=== PATIENT | male | born 1960 | race African-American/Black ===

== ENCOUNTER 2017-05-21 19:08 | Inpatient (IN) | payer MEDICARE, OTHER ==
--- NOTE | 2017-05-21 19:41 | ED Physician Chart ---
ED Chief Complaint/HPI - Patient Information Date Seen:: 05/21/17 Time Seen:: 19:30 Chief Complaint:: generalized weakness History of Present Illness:: Patient's had a recent increase in generalized weakness and a decrease in his abilities to perform activities of daily living. Patient denies chest pain and shortness of breath. Historian:: Patient Review:: Nurse's Note Reviewed ED Review of Systems - Review of Systems General/Constitutional: Weakness Skin: No skin lesions Head: No headache Eyes: No loss of vision ENT: No earache Neck: No neck pain Cardio Vascular: No chest pain Pulmonary: No SOB GI: No nausea, No vomiting G/U: No dysuria, No hematuria Musculoskeletal: No bone or joint pain Endocrine: No polyuria, No polydipsia Psychiatric: Prior psych history Hematopoietic: No bruising, No lymphadenopathy Allergic/Immuno: No urticaria, No angioedema Neurological: No syncope ED Past Medical History - Past Medical History Past Medical History: DM, Other (history of hypoglycemia; anxiety; schizophrenia ; psychosis) Family History: None Social History: Smoker, No Alcohol, Other (quit drinking alcohol in 1976; smokes about 6-7 cigarettes a day) Surgical History: other (cyst left side of neck) Psychiatricy History: Schizophrenia, Other (psychosis) Medication: Reviewed ED Physical Exam - Physical Examination General/Constitutional: Well-developed, well-nourished, Alert, No distress Other Gen/Cons comments:: Patient knows the correct year but not the correct month Head: Atraumatic Eyes: Lids, conjuctiva normal Skin: Nl inspection ENMT: External ears, nose nl Other ENMT comments:: Edentulous Neck: No nuchal rigidity Respiratory: Nl effort/Exclusion Cardio Vascular: RRR, No murmur, gallop, rubs GI: No tenderness/rebounding/guarding, No organomegaly : No CVA tenderness Extremities: No tenderness or effusion Misc: No paraspinal tenderness ED Labs/Radiology/EKG Results - Lab Results Results: Laboratory Results - last 24 hr 05/21/17 20:48 Urine Source RANDOM Urine Color YELLOW Urine Clarity HAZY Urine pH 7.0 Ur Specific [place] 1.010 Urine Protein NEGATIVE Urine Glucose (UA) NEGATIVE Urine Ketones NEGATIVE Urine Blood TRACE Urine Nitrate POSITIVE H Urine Bilirubin NEGATIVE Urine Urobilinogen 0.2 Ur Leukocyte Esterase NEGATIVE Urine RBC 0-2 H Urine WBC 0-2 Ur Epithelial Cells OCCASIONAL Urine Bacteria MANY - EKG Interpretations Rate & Rhythm: NSR rate [address] [place]: normal Comments:: ST segment elevation suggestive of early repolarization not pericarditis ED Septic Shock - . Is Septic Shock (SBP<90, OR Lactate>4 mmol\L) present?: No ED Reassessment (Disposition) - Reassessment Reassessment Condition:: Unchanged - Diagnosis Diagnosis:: generalized weakness; diabetes; anxiety; schizophrenia - Aftercare/Follow up Instructions Aftercare/Follow-Up Instructions:: Refer to Discharge Instructions - Patient Disposition Admitted to:: Med/Surg Admitting Medical Physician:: Suhail Partida Admitting Psych Physician:: Suhail Partida Condition at Disposition:: Stable, Unchanged
[2017-05-21 20:56] LABS: URINE BILIRUBIN NEGATIVE (NEGATIVE); URINE BLOOD TRACE (NEGATIVE); URINE GLUCOSE (UA) NEGATIVE (NEGATIVE); URINE KETONE NEGATIVE (NEGATIVE); URINE PROTEIN NEGATIVE (NEGATIVE); URINE UROBILINOGEN 0.2 E.U./dL (0.2 - 1.0)
[2017-05-21 20:59] LABS: URINE COLOR YELLOW
[2017-05-21 21:00] LABS: URINE BACTERIA MANY /hpf (NONE SEEN); URINE EPITHELIAL CELLS OCCASIONAL /lpf (FEW); URINE RBC 0-2 /hpf (0-5); URINE WBC 0-2 /hpf (0-5)
[2017-05-21] MEDS ORDERED: guaiFENesin 200 MG/10 ML UDC PO PRN (21:36)
[2017-05-21] MEDS ORDERED: Albuterol Nebulizer 2.5mg/3mL HHN PRN (21:36)
[2017-05-21] MEDS ORDERED: Ipratropium Neb 0.5 mg/2.5 mL UD IH PRN (21:36)
[2017-05-21] MEDS ORDERED: HALOPERIDOL DECANOATE 50 MG IM SCH (21:45)
[2017-05-21] MEDS ORDERED: D5-0.9%NS 1,000 ML IV SCH (21:45)
[2017-05-21 22:11] LABS: % BASOPHILS 0.4 % (0.0-2.0); % EOSINOPHILS 4.1 % (0.0-5.0); % LYMPHOCYTES 27.6 % (20.0-50.0); % MONOCYTES 7.9 % (2.0-10.0); HEMATOCRIT 37.9 % (41.0-60); HEMOGLOBIN 12.4 gm/dL (12-16); MEAN CELL VOLUME 88.1 fl (80-99); MEAN CORPUSCULAR HEMOGLOBIN 28.9 pg (26.0-30.0); MEAN CORPUSCULAR HGB CONC 32.8 pg (28.0-36.0); MEAN PLATELET VOLUME 7.9 fl; NEUTROPHILE ABSOLUTE 2.9 Th/cmm (1.8-8.0); PLATELET COUNT 172 Th/cmm (150-400); RED CELL DISTRIBUTION WIDTH 12.8 % (11.5-20.0); WHITE BLOOD COUNT 4.8 Th/cmm (4.8-10.8)
[2017-05-21 22:21] LABS: ALB/GLOB RATIO 1.6 (1.0-1.8); ALKALINE PHOSPHATASE 36 U/L (34-104); ANION GAP 8.3 (7.0-16.0); BILIRUBIN,TOTAL 0.5 mg/dL (0.3-1.0); BUN - UREA NITROGEN 14 mg/dL (7-25); BUN/CREATININE RATIO 17.5; CALCIUM SERUM 9.3 mg/dL (8.6-10.3); CARBON DIOXIDE 26.5 mEq/L (21.0-31.0); CHLORIDE 101 mEq/L (98-107); CREATININE - SERUM 0.8 mg/dL (0.7-1.3); GLUCOSE 105 mg/dL (70-105); POTASSIUM SERUM 3.8 mEq/L (3.5-5.1); SGOT 19 U/L (13-39); SGPT/ALT 11 U/L (7-52); SODIUM SERUM 132 mEq/L (136-145)
[2017-05-22 01:31] VITALS: BP 118/90
--- NOTE | 2017-05-22 07:09 | Diagnostic Imaging Report ---
Portable chest x-ray History: Pain Allowing for portable technique the heart size is normal. No focal pulmonary parenchymal processes. No hilar or mediastinal abnormalities. Impression: No acute abnormalities.
[2017-05-22] MEDS ORDERED: INSULIN ASPART, RECOMBINANT 100 UNITS/ML SUBQ SCH (07:30)
--- NOTE | 2017-05-22 16:26 | History & Physical ---
ADMIT DATE: 05/22/2017 CHIEF COMPLAINT: Generalized weakness. HISTORY OF PRESENT ILLNESS: This is a 56-year-old male who was seen in the ER for increase in generalized weakness and decreasing ability to perform activities. The patient is homeless. This patient is now admitted to the Geropsych Unit. PAST MEDICAL HISTORY: Diabetes, anxiety, schizophrenia, psychosis. FAMILY HISTORY: Noncontributory. SOCIAL HISTORY: The patient is a current smoker, smokes 6-7 cigarettes per day. Denies any illicit drug usage. The patient is homeless. PAST SURGICAL HISTORY: I and D on the left side of the neck. REVIEW OF SYSTEMS: GENERAL: Denies any fevers, any chills complaints of weakness. SKIN: Denies any unusual skin lesions. NEUROLOGICAL: Denies any headache. NECK: No neck pain. CARDIOVASCULAR: Denies chest pain. RESPIRATORY: Denies any shortness of breath. GASTROINTESTINAL: Denies nausea, vomiting, abdominal pain. GENITOURINARY: Denies dysuria. All other systems are reviewed by me and are negative. PHYSICAL EXAMINATION: GENERAL: The patient is well developed, well nourished, no acute distress. VITAL SIGNS: Blood pressure is only available 90/54. HEENT: Normocephalic, atraumatic. NECK: Supple. No mass. LUNGS: Clear bilaterally. HEART: Regular rate and rhythm. ABDOMEN: Soft and nontender. LABORATORY DATA: WBC 4.8, H and H 12.4 and 37.9, and platelet of 172. Sodium 132, potassium 3.8, chloride 101, BUN 14, creatinine 0.8. Ammonia 78, albumin 4.1. ASSESSMENT: Diabetes, generalized weakness, anxiety, schizophrenia. PLAN: The patient will be admitted to the Geropsych Unit. We will monitor the patient's glucose level. We will put a sliding scale and will continue to follow this patient. JOB# [id number]
== END 2017-05-22 10:00 | DRG 948 ==
LOC: ER 19:08 → MSI 21:40
PROVIDERS: ADMIT Internal Medicine; ATTEND Internal Medicine
DX: R53.1 Weakness (principal); F20.9 Schizophrenia, unspecified; E11.9 Type 2 diabetes mellitus without complications; F41.9 Anxiety disorder, unspecified; F29 Unspecified psychosis not due to a substance or known physiological condition; F17.210 Nicotine dependence, cigarettes, uncomplicated; Z59.0 Homelessness
CPT/HCPCS: 36415-UA; 71010-TC; 80053-TC; 81001-TC; 82140-TC; 82948-90; 83036-90; 84443-TC; 85025-TC; 93005; J1815

== ENCOUNTER 2017-05-22 10:02 | Inpatient (IN) | payer MEDICARE, OTHER ==
[2017-05-22 12:08] VITALS: BP 90/54
[2017-05-22] MEDS ORDERED: Magnesium Hydroxide (MOM) 30 mL UDC PO PRN (12:33)
[2017-05-22] MEDS ORDERED: Maalox 30 mL Cup PO PRN ×2 (12:33→12:38)
--- NOTE | 2017-05-22 12:38 | Internal Medicine Prog Note ---
Internal Medicine Subjective - Subjective Service Date: 05/22/17 ([id number]) Internal Medicine Objective - Physical Exam Vitals and I&O: Vital Signs Temp Pulse Resp BP 90/54 05/22/17 12:07 Pulse Ox Intake & Output 05/21/17 05/22/17 05/22/17 18:59 06:59 18:59 Weight (lbs) 123 lb 12.8 oz Active Medications: Current Medications Diphenhydramine HCl (Benadryl 50 Mg/Ml) 25 mg IM NOW ONE Stop: 05/22/17 12:11 Lorazepam (Ativan) 1 mg PO Q6HR PRN; Protocol PRN Reason: Anxiety Stop: 07/21/17 12:35 Miscellaneous (Haloperidol Decanoate [Haldol Decanoate 50]) 50 mg IM [id number] SARA Stop: 07/21/17 12:44 Olanzapine (Zyprexa) 5 mg IM X1 ONE PRN Reason: Protocol Stop: 05/22/17 12:09 Internal Medicine Assmt/Plan - Assessment Assessment: DM-2 GENERALIZED WEAKNESS ANXIETY SCHIZOPHRENIA NICOTINE ABUSE
[2017-05-22] MEDS ORDERED: HALOPERIDOL DECANOATE 50 MG IM SCH (12:45)
[2017-05-22] MEDS: INSULIN ASPART SLIDING SCALE 100 UNITS/ML UNIT SUBQ SCH ×2 (15:45→21:00)
[2017-05-23] MEDS: INSULIN ASPART SLIDING SCALE 100 UNITS/ML UNIT SUBQ SCH ×4 (06:44→20:22)
[2017-05-23] MEDS: Multivitamin Tab PO SCH (10:00)
--- NOTE | 2017-05-23 11:37 | Internal Medicine Prog Note ---
Internal Medicine Subjective - Subjective Service Date: 05/23/17 Patient seen and examined:: with staff Patient is:: awake Per staff patient has:: no adverse event Internal Medicine Objective - Results Recent Labs: Laboratory Last Values POC Glucose 65 MG/DL (70 - 105) L 05/23/17 06:28 - Physical Exam Vitals and I&O: Vital Signs Temp 97.5 F 05/23/17 06:49 Pulse 63 05/23/17 06:49 Resp 19 05/23/17 06:49 BP 115/65 05/23/17 06:49 Pulse Ox 98 05/23/17 06:49 Intake & Output 05/22/17 05/23/17 05/23/17 18:59 06:59 18:59 Intake Total 120 Balance 120 Intake: Oral 120 Other: # Voids 3 Active Medications: Current Medications Acetaminophen (Tylenol) 650 mg PO Q4HR PRN PRN Reason: Pain Or Fever above 101 Stop: 07/21/17 12:37 Al Hydrox/Mg Hydrox/Simethicone (Maalox) 30 ml PO Q6HR PRN PRN Reason: Dyspepsia Stop: 07/21/17 12:37 Haloperidol Decanoate (Haldol Dec) 50 mg IM Q30D SARA Stop: 07/22/17 09:59 Last Admin: 05/23/17 10:00 Dose: 50 mg Insulin Aspart (Novolog Insulin Sliding Scale) 0 units SUBQ ACHS SARA PRN Reason: Protocol Stop: 07/21/17 16:29 Last Admin: 05/23/17 06:44 Dose: Not Given Levofloxacin (Levaquin) 500 mg PO DAILY SARA Stop: 05/28/17 09:01 Last Admin: 05/23/17 09:59 Dose: 500 mg Lorazepam (Ativan) 1 mg PO Q6HR PRN; Protocol PRN Reason: Anxiety Stop: 07/21/17 12:35 Lorazepam (Ativan) 0.5 mg PO Q4HR PRN; Protocol PRN Reason: Agitation Stop: 06/21/17 12:40 Magnesium Hydroxide (Milk Of Magnesia) 30 ml PO HS PRN PRN Reason: Constipation Multivitamins/Vitamin C (Theragran) 1 tab PO DAILY SARA Stop: 07/22/17 08:59 Last Admin: 05/23/17 10:00 Dose: 1 tab Zolpidem Tartrate (Ambien) 5 mg PO HS PRN PRN Reason: Insomnia Stop: 07/21/17 12:40 General: alert HEENT: NC/AT, PERRLA Neck: Supple Lungs: CTAB Cardiovascular: RRR, Normal S1, without murmur Extremities: clear Internal Medicine Assmt/Plan - Assessment Assessment: DM-2 GENERALIZED WEAKNESS ANXIETY SCHIZOPHRENIA NICOTINE ABUSE - Plan Plan: monitor glucose fall precautions continue current plan of care
[2017-05-24] MEDS: INSULIN ASPART SLIDING SCALE 100 UNITS/ML UNIT SUBQ SCH ×4 (06:35→21:49)
[2017-05-24] MEDS: Multivitamin Tab PO SCH (08:29)
--- NOTE | 2017-05-24 17:18 | Internal Medicine Prog Note ---
Internal Medicine Subjective - Subjective Service Date: 05/24/17 Patient is:: awake Per staff patient has:: no adverse event Internal Medicine Objective - Results Recent Labs: Laboratory Last Values POC Glucose 92 MG/DL (70 - 105) 05/24/17 16:15 - Physical Exam Vitals and I&O: Vital Signs Temp 98.1 F 05/24/17 16:37 Pulse 54 05/24/17 16:37 Resp 20 05/24/17 16:37 BP 117/75 05/24/17 16:37 Pulse Ox 97 05/24/17 16:37 Intake & Output 05/23/17 05/24/17 05/24/17 18:59 06:59 18:59 Intake Total 1000 Balance 1000 Intake: Oral 1000 Other: # Voids 4 # Bowel Movements 1 Active Medications: Current Medications Acetaminophen (Tylenol) 650 mg PO Q4HR PRN PRN Reason: Pain Or Fever above 101 Stop: 07/21/17 12:37 Al Hydrox/Mg Hydrox/Simethicone (Maalox) 30 ml PO Q6HR PRN PRN Reason: Dyspepsia Stop: 07/21/17 12:37 Benztropine Mesylate (Cogentin) 0.5 mg PO BID SARA Stop: 07/23/17 16:59 Last Admin: 05/24/17 16:42 Dose: 0.5 mg Haloperidol Decanoate (Haldol Dec) 50 mg IM Q30D [facility] Stop: 07/22/17 09:59 Last Admin: 05/23/17 10:00 Dose: 50 mg Insulin Aspart (Novolog Insulin Sliding Scale) 0 units SUBQ ACHS SARA PRN Reason: Protocol Stop: 07/21/17 16:29 Last Admin: 05/24/17 16:42 Dose: Not Given Levofloxacin (Levaquin) 500 mg PO DAILY SARA Stop: 05/28/17 09:01 Last Admin: 05/24/17 08:29 Dose: 500 mg Lorazepam (Ativan) 1 mg PO Q6HR PRN; Protocol PRN Reason: Anxiety Stop: 07/21/17 12:35 Lorazepam (Ativan) 0.5 mg PO Q4HR PRN; Protocol PRN Reason: Agitation Stop: 06/21/17 12:40 Magnesium Hydroxide (Milk Of Magnesia) 30 ml PO HS PRN PRN Reason: Constipation Multivitamins/Vitamin C (Theragran) 1 tab PO DAILY SARA Stop: 07/22/17 08:59 Last Admin: 05/24/17 08:29 Dose: 1 tab Zolpidem Tartrate (Ambien) 5 mg PO HS PRN PRN Reason: Insomnia Stop: 07/21/17 12:40 General: alert HEENT: NC/AT, PERRLA Neck: Supple Lungs: CTAB Cardiovascular: RRR, Normal S1, without murmur Extremities: clear Internal Medicine Assmt/Plan - Assessment Assessment: DM-2 GENERALIZED WEAKNESS ANXIETY SCHIZOPHRENIA NICOTINE ABUSE - Plan Plan: monitor glucose fall precautions continue current plan of care
--- NOTE | 2017-05-25 02:44 | Psychosocial Evaluation ---
DATE OF SERVICE: 05/23/2017 IDENTIFYING DATA: The patient is a 56-year-old -Luxembourger male, currently homeless. Information obtained by directly interviewing the patient as well as reviewing the admission papers and they are reliable. JUSTIFICATION OF HOSPITALIZATION: The patient is admitted here after he was transferred from [facility]. The patient has been reported to have been getting easily agitated and has not been able to care for self. The patient during the time of the hospitalization has been screaming and yelling and could not making much sense. The patient has to be given a dose of Haldol to contain. I tried to get some information from the patient, but the patient is not able to provide much of information and has been getting easily frustrated. PAST PSYCHIATRIC HISTORY: Details are not known. MEDICAL HISTORY AND PHYSICAL EXAMINATION: Requested to be done by Dr. Partida. SUBSTANCE ABUSE HISTORY: None. PHYSICAL OR SEXUAL ABUSE HISTORY: None. LEGAL PROBLEMS: None at this time. STRENGTH AND ASSETS: The patient seems to be motivated. MENTAL STATUS EXAMINATION: The patient is a 56-year-old, superficially cooperative. Eye contact is poor. Affect is constricted. Coping skills are noted to be poor. The patient has been screaming and yelling and has been throwing himself onto the floor. The patient has been very disruptive and has to be given a dose of Haldol. Attention span and concentration are noted to be poor at this time. The patient has no insight into his illness. The patient is not able to contract for safety. DIAGNOSTIC IMPRESSION: The patient's attention span and concentration are noted to be poor at this time. The patient appears to have ____ intelligence. DIAGNOSES AT THE TIME OF ADMISSION: AXIS I: Schizophrenia, chronic paranoid type with acute exacerbation. AXIS II: None. AXIS III: As per Dr. Partida. IMMEDIATE TREATMENT PLAN: The patient is going to be observed on the inpatient unit, provided with supportive psychotherapy. The patient is going to be closely monitored. Once stabilized, the patient is going to be [facility] to be followed up on an outpatient basis. JOB# [id number]
[2017-05-25] MEDS: INSULIN ASPART SLIDING SCALE 100 UNITS/ML UNIT SUBQ SCH ×4 (06:32→20:41)
[2017-05-25] MEDS: Multivitamin Tab PO SCH (10:09)
[2017-05-25] MEDS ORDERED: Probiotic Screen MC PRN (14:59)
[2017-05-25] MEDS: Lactobacillus Rhamnosus 10 Billion CFU Capsule PO SCH (17:18)
--- NOTE | 2017-05-25 19:35 | Internal Medicine Prog Note ---
Internal Medicine Subjective - Subjective Service Date: 05/25/17 Patient is:: awake Per staff patient has:: no adverse event Internal Medicine Objective - Results Recent Labs: Laboratory Last Values POC Glucose 97 MG/DL (70 - 105) 05/25/17 16:17 - Physical Exam Vitals and I&O: Vital Signs Temp 98.1 F 05/25/17 15:29 Pulse 79 05/25/17 15:29 Resp 18 05/25/17 15:29 BP 115/68 05/25/17 15:29 Pulse Ox 96 05/25/17 15:29 Intake & Output 05/25/17 05/25/17 05/26/17 06:59 18:59 06:59 Intake Total 660 1800 Balance 660 1800 Intake: Oral 660 1800 Other: # Voids 3 4 # Bowel Movements 0 1 Active Medications: Current Medications Acetaminophen (Tylenol) 650 mg PO Q4HR PRN PRN Reason: Pain Or Fever above 101 Stop: 07/21/17 12:37 Al Hydrox/Mg Hydrox/Simethicone (Maalox) 30 ml PO Q6HR PRN PRN Reason: Dyspepsia Stop: 07/21/17 12:37 Benztropine Mesylate (Cogentin) 0.5 mg PO BID [facility] Stop: 07/23/17 16:59 Last Admin: 05/25/17 17:20 Dose: 0.5 mg Haloperidol Decanoate (Haldol Dec) 50 mg IM Q30D [facility] Stop: 07/22/17 09:59 Last Admin: 05/23/17 10:00 Dose: 50 mg Insulin Aspart (Novolog Insulin Sliding Scale) 0 units SUBQ ACHS SARA PRN Reason: Protocol Stop: 07/21/17 16:29 Last Admin: 05/25/17 17:20 Dose: Not Given Lactobacillus Rhamnosus (Culturelle) 1 each PO DAILY [facility] Stop: 07/24/17 15:59 Last Admin: 05/25/17 17:18 Dose: 1 each Levofloxacin (Levaquin) 500 mg PO DAILY [facility] Stop: 05/28/17 09:01 Last Admin: 05/25/17 10:07 Dose: 500 mg Lorazepam (Ativan) 1 mg PO Q6HR PRN; Protocol PRN Reason: Anxiety Stop: 07/21/17 12:35 Last Admin: 05/25/17 10:09 Dose: 1 mg Lorazepam (Ativan) 0.5 mg PO Q4HR PRN; Protocol PRN Reason: Agitation Stop: 06/21/17 12:40 Magnesium Hydroxide (Milk Of Magnesia) 30 ml PO HS PRN PRN Reason: Constipation Miscellaneous (Probiotic Screen) 1 ea [facility] PRN PRN PRN Reason: PROTOCOL Stop: 07/24/17 14:58 Multivitamins/Vitamin C (Theragran) 1 tab PO DAILY SARA Stop: 07/22/17 08:59 Last Admin: 05/25/17 10:09 Dose: Not Given Zolpidem Tartrate (Ambien) 5 mg PO HS PRN PRN Reason: Insomnia Stop: 07/21/17 12:40 General: alert HEENT: NC/AT, PERRLA Neck: Supple Lungs: CTAB Cardiovascular: RRR, Normal S1, without murmur Extremities: clear Internal Medicine Assmt/Plan - Assessment Assessment: DM-2 GENERALIZED WEAKNESS ANXIETY SCHIZOPHRENIA NICOTINE ABUSE - Plan Plan: monitor glucose fall precautions continue current plan of care
--- NOTE | 2017-05-26 05:32 | Progress Notes ---
DATE: 05/24/2017 PSYCHIATRIC PROGRESS NOTE SUBJECTIVE: Staff was spoken to. The patient is interviewed. Mood is noted to be irritable. Affect is constricted. The patient has paranoid delusions. The patient has been on Haldol and has been presenting with drooling of saliva, and hence it is decided to add Cogentin 0.5 mg twice a day and follow the patient. ASSESSMENT: The patient is still paranoid and impulsive. PLAN: To continue the patient with the supportive therapy. I encouraged the patient to verbalize the concerns rather than to act out. JOB# [id number]
[2017-05-26] MEDS: INSULIN ASPART SLIDING SCALE 100 UNITS/ML UNIT SUBQ SCH ×2 (06:55→21:50)
[2017-05-26] MEDS: Lactobacillus Rhamnosus 10 Billion CFU Capsule PO SCH (09:31)
[2017-05-26] MEDS: Multivitamin Tab PO SCH (09:32)
--- NOTE | 2017-05-26 13:05 | Internal Medicine Prog Note ---
Internal Medicine Subjective - Subjective Service Date: 05/26/17 Patient is:: awake Per staff patient has:: no adverse event Internal Medicine Objective - Results Recent Labs: Laboratory Last Values POC Glucose 76 MG/DL (70 - 105) 05/26/17 05:56 - Physical Exam Vitals and I&O: Vital Signs Temp 97.6 F 05/26/17 06:55 Pulse 59 05/26/17 06:55 Resp 19 05/26/17 06:55 BP 98/59 05/26/17 06:55 Pulse Ox 98 05/26/17 06:55 Intake & Output 05/25/17 05/26/17 05/26/17 18:59 06:59 18:59 Intake Total 1800 240 Balance 1800 240 Intake: Oral 1800 240 Other: # Voids 4 3 # Bowel Movements 1 0 Active Medications: Current Medications Acetaminophen (Tylenol) 650 mg PO Q4HR PRN PRN Reason: Pain Or Fever above 101 Stop: 07/21/17 12:37 Al Hydrox/Mg Hydrox/Simethicone (Maalox) 30 ml PO Q6HR PRN PRN Reason: Dyspepsia Stop: 07/21/17 12:37 Benztropine Mesylate (Cogentin) 0.5 mg PO BID [facility] Stop: 07/23/17 16:59 Last Admin: 05/26/17 09:31 Dose: 0.5 mg Haloperidol Decanoate (Haldol Dec) 50 mg IM Q30D [facility] Stop: 07/22/17 09:59 Last Admin: 05/23/17 10:00 Dose: 50 mg Insulin Aspart (Novolog Insulin Sliding Scale) 0 units SUBQ ACHS SARA PRN Reason: Protocol Stop: 07/21/17 16:29 Last Admin: 05/26/17 06:55 Dose: Not Given Lactobacillus Rhamnosus (Culturelle) 1 each PO DAILY [facility] Stop: 07/24/17 15:59 Last Admin: 05/26/17 09:31 Dose: 1 each Levofloxacin (Levaquin) 500 mg PO DAILY [facility] Stop: 05/28/17 09:01 Last Admin: 05/26/17 09:30 Dose: 500 mg Lorazepam (Ativan) 1 mg PO Q6HR PRN; Protocol PRN Reason: Anxiety Stop: 07/21/17 12:35 Last Admin: 05/26/17 09:31 Dose: 1 mg Lorazepam (Ativan) 0.5 mg PO Q4HR PRN; Protocol PRN Reason: Agitation Stop: 06/21/17 12:40 Magnesium Hydroxide (Milk Of Magnesia) 30 ml PO HS PRN PRN Reason: Constipation Miscellaneous (Probiotic Screen) 1 ea [facility] PRN PRN PRN Reason: PROTOCOL Stop: 07/24/17 14:58 Multivitamins/Vitamin C (Theragran) 1 tab PO DAILY SARA Stop: 07/22/17 08:59 Last Admin: 05/26/17 09:32 Dose: Not Given Zolpidem Tartrate (Ambien) 5 mg PO HS PRN PRN Reason: Insomnia Stop: 07/21/17 12:40 General: alert HEENT: NC/AT, PERRLA Neck: Supple Lungs: CTAB Cardiovascular: RRR, Normal S1, without murmur Extremities: clear Internal Medicine Assmt/Plan - Assessment Assessment: DM-2 GENERALIZED WEAKNESS ANXIETY SCHIZOPHRENIA NICOTINE ABUSE - Plan Plan: monitor glucose fall precautions continue current plan of care
--- NOTE | 2017-05-26 20:38 | Progress Notes ---
DATE: 05/25/2017 SUBJECTIVE: Staff was spoken to. The patient is interviewed. Mood is noted to be irritable. Affect was continued. Continues to be paranoid. The patient is currently on Haldol and the patient has been able to tolerate the medications. No side effects to the medications are noted at this time. The patient's insight and judgment are noted to be impaired. The drooling has stopped once we restarted with the Cogentin. ASSESSMENT: The patient is still psychotic. PLAN: To continue the patient with supportive therapy and encouraged the patient to verbalize the concerns rather than to act out. JOB# [id number]
--- NOTE | 2017-05-27 04:37 | Progress Notes ---
DATE: 05/26/2017 SUBJECTIVE: Staff was spoken to. The patient is interviewed. Mood is noted to be irritable. Affect is constricted. The patient is getting easily irritable and stating that he needs his freedom and he cannot be in here. The patient has no place to return to. Coping skills at this time are noted to be very poor. Sleep and appetite are also noted to be very poor. ASSESSMENT: The patient is still grossly psychotic. PLAN: To continue the patient with the supportive therapy. I encouraged the patient to verbalize the concerns rather than to act out. The patient is not presenting with any side effects today. JOB# [id number]
[2017-05-27] MEDS: INSULIN ASPART SLIDING SCALE 100 UNITS/ML UNIT SUBQ SCH ×4 (07:01→20:46)
[2017-05-27] MEDS: Lactobacillus Rhamnosus 10 Billion CFU Capsule PO SCH (09:07)
[2017-05-27] MEDS: Multivitamin Tab PO SCH (09:08)
--- NOTE | 2017-05-27 14:13 | Internal Medicine Prog Note ---
Internal Medicine Subjective - Subjective Service Date: 05/27/17 Patient is:: awake Per staff patient has:: no adverse event Internal Medicine Objective - Results Recent Labs: Laboratory Last Values POC Glucose 73 MG/DL (70 - 105) 05/27/17 12:00 - Physical Exam Vitals and I&O: Vital Signs Temp 97.8 F 05/27/17 05:56 Pulse 48 05/27/17 05:56 Resp 20 05/27/17 05:56 BP 115/71 05/27/17 05:56 Pulse Ox 100 05/27/17 05:56 Intake & Output 05/26/17 05/27/17 05/27/17 18:59 06:59 18:59 Intake Total 1800 300 Balance 1800 300 Intake: Oral 1800 300 Other: # Voids 5 2 # Bowel Movements 1 0 Active Medications: Current Medications Acetaminophen (Tylenol) 650 mg PO Q4HR PRN PRN Reason: Pain Or Fever above 101 Stop: 07/21/17 12:37 Al Hydrox/Mg Hydrox/Simethicone (Maalox) 30 ml PO Q6HR PRN PRN Reason: Dyspepsia Stop: 07/21/17 12:37 Benztropine Mesylate (Cogentin) 0.5 mg PO BID [facility] Stop: 07/23/17 16:59 Last Admin: 05/27/17 09:07 Dose: 0.5 mg Haloperidol Decanoate (Haldol Dec) 50 mg IM Q30D [facility] Stop: 07/22/17 09:59 Last Admin: 05/23/17 10:00 Dose: 50 mg Insulin Aspart (Novolog Insulin Sliding Scale) 0 units SUBQ ACHS SARA PRN Reason: Protocol Stop: 07/21/17 16:29 Last Admin: 05/27/17 12:04 Dose: Not Given Lactobacillus Rhamnosus (Culturelle) 1 each PO DAILY [facility] Stop: 07/24/17 15:59 Last Admin: 05/27/17 09:07 Dose: 1 each Levofloxacin (Levaquin) 500 mg PO DAILY [facility] Stop: 05/28/17 09:01 Last Admin: 05/27/17 09:07 Dose: 500 mg Lorazepam (Ativan) 1 mg PO Q6HR PRN; Protocol PRN Reason: Anxiety Stop: 07/21/17 12:35 Last Admin: 05/26/17 09:31 Dose: 1 mg Lorazepam (Ativan) 0.5 mg PO Q4HR PRN; Protocol PRN Reason: Agitation Stop: 06/21/17 12:40 Magnesium Hydroxide (Milk Of Magnesia) 30 ml PO HS PRN PRN Reason: Constipation Miscellaneous (Probiotic Screen) 1 ea MC PRN PRN PRN Reason: PROTOCOL Stop: 07/24/17 14:58 Multivitamins/Vitamin C (Theragran) 1 tab PO DAILY SARA Stop: 07/22/17 08:59 Last Admin: 05/27/17 09:08 Dose: 1 tab Zolpidem Tartrate (Ambien) 5 mg PO HS PRN PRN Reason: Insomnia Stop: 07/21/17 12:40 General: alert HEENT: NC/AT, PERRLA Neck: Supple Lungs: CTAB Cardiovascular: RRR, Normal S1, without murmur Extremities: clear Internal Medicine Assmt/Plan - Assessment Assessment: DM-2 GENERALIZED WEAKNESS ANXIETY SCHIZOPHRENIA NICOTINE ABUSE - Plan Plan: monitor glucose fall precautions continue current plan of care Nutritional Asmnt/Malnutr-PDOC - Dietary Evaluation Malnutrition Findings (Please click <Entered> for more info): Nutritional Asmnt/Malnutrition Start: 05/26/17 18: 15 Text: Status: Complete Freq: Document 05/26/17 18:15 GSUN (Rec: 05/26/17 18:27 GSUN [email or web address]) Nutritional Asmnt/Malnutrition Patient General Information Nutritional Screening Moderate Risk Screening Diagnosis Schizophrenia chronic paranoid with acute exacerbation Pertinent Medical Hx/Surgical Hx DM2, generalized weakness, anxiety, schizophrenia, nicotine abuse Subjective Information 56 year old male. Pt usually seen ambulating via wheelchair . Spoke to pt in rec room, pt was alert with short resposnes . Pt denied nutritinoal concerns at this time. Pt is edentulous, stated tolerating current diet order. Avg PO intake 75-100% of meals since adm, meeting nutritinoal needs . Limited physical assessment, pt appeared lean, no severe muscle/fat wasting noted. Current Diet Order/ Nutrition Support [id number], mech soft chopped Pertinent Medications Haldol, Novolog, Culturelle, MOM, Theragran Pertinent Labs POC glucose 76-103 since adm, with 2 episodes 67L and 65L Nutritional Hx/Data Height 5 ft 6 in Height (Calculated Centimeters) 167.6 Current Weight (lbs) 123 lb 12.8 oz Weight (Calculated Kilograms) 56.2 Weight (Calculated Grams) 83960.7 [place] Body Weight 142 Weight Status Approriate GI Symptoms Food Allergies No Skin Integrity/Comment: Evan 16. Dryness. Current %PO Good (75-100%) Estimated Nutritional Goals Calories/Kcals/Kg IBW 142lb/64.5kg Kcals Calculated 1613-1935kcal (25-30kcal/kg) Protein Calculated 65g (1g/kg) Fluid: ml 1613-1935ml (1ml/kcal) Nutritional Problem 1. Problem Problem No nutritinoal problem at this time. Intervention/Recommendation Recommendations by RD PPN/TPN Comments 1. Continue with current diet order as pt tolerates, meeting nutritnioal needs, and POC glucose <105. Avg PO intake is adequate to promtoe weight gain. 2. Monitor glucose levels, 2 episodes of hypoglycemia noted . Nursing staff to adjust insulin. Recommend removing CCHO restriction if hypoglycemia persists. Expected Outcomes/Goals Expected Outcomes/Goals 1. PO intake continue to meet at least 75% of estimated nutritinoal needs.
--- NOTE | 2017-05-28 03:24 | Progress Notes ---
DATE: 05/27/2017 SUBJECTIVE: Staff was spoken to. The patient is interviewed. Mood is noted to be irritable. Affect is constricted. Coping skills are noted to be still poor. The patient is responding to internal stimuli. The patient is stating that he can take care of himself, he does not need any help. The patient has no insight into his illness. The patient is currently on haloperidol and has been able to tolerate the medication. ASSESSMENT: The patient is still impulsive. PLAN: To continue the patient with the current medications. I encouraged the patient to verbalize the concerns rather than to act out. JOB# [id number]
[2017-05-28] MEDS: INSULIN ASPART SLIDING SCALE 100 UNITS/ML UNIT SUBQ SCH ×4 (06:41→22:05)
[2017-05-28] MEDS: Multivitamin Tab PO SCH (08:48)
[2017-05-28] MEDS: Lactobacillus Rhamnosus 10 Billion CFU Capsule PO SCH (08:48)
--- NOTE | 2017-05-28 12:33 | Internal Medicine Prog Note ---
Internal Medicine Subjective - Subjective Service Date: 05/28/17 Patient is:: awake Per staff patient has:: no adverse event Internal Medicine Objective - Results Recent Labs: Laboratory Last Values POC Glucose 93 MG/DL (70 - 105) 05/28/17 06:36 - Physical Exam Vitals and I&O: Vital Signs Temp 98 F 05/28/17 06:39 Pulse 82 05/28/17 06:39 Resp 18 05/28/17 06:39 BP 111/64 05/28/17 06:39 Pulse Ox 97 05/28/17 06:39 Intake & Output 05/27/17 05/28/17 05/28/17 18:59 06:59 18:59 Intake Total 1200 120 Balance 1200 120 Intake: Oral 1200 120 Other: # Voids 3 # Bowel Movements 1 Active Medications: Current Medications Acetaminophen (Tylenol) 650 mg PO Q4HR PRN PRN Reason: Pain Or Fever above 101 Stop: 07/21/17 12:37 Al Hydrox/Mg Hydrox/Simethicone (Maalox) 30 ml PO Q6HR PRN PRN Reason: Dyspepsia Stop: 07/21/17 12:37 Benztropine Mesylate (Cogentin) 0.5 mg PO BID [facility] Stop: 07/23/17 16:59 Last Admin: 05/28/17 08:48 Dose: 0.5 mg Haloperidol Decanoate (Haldol Dec) 50 mg IM Q30D [facility] Stop: 07/22/17 09:59 Last Admin: 05/23/17 10:00 Dose: 50 mg Insulin Aspart (Novolog Insulin Sliding Scale) 0 units SUBQ ACHS SARA PRN Reason: Protocol Stop: 07/21/17 16:29 Last Admin: 05/28/17 11:57 Dose: Not Given Lactobacillus Rhamnosus (Culturelle) 1 each PO DAILY [facility] Stop: 07/24/17 15:59 Last Admin: 05/28/17 08:48 Dose: 1 each Lorazepam (Ativan) 1 mg PO Q6HR PRN; Protocol PRN Reason: Anxiety Stop: 07/21/17 12:35 Last Admin: 05/26/17 09:31 Dose: 1 mg Lorazepam (Ativan) 0.5 mg PO Q4HR PRN; Protocol PRN Reason: Agitation Stop: 06/21/17 12:40 Magnesium Hydroxide (Milk Of Magnesia) 30 ml PO HS PRN PRN Reason: Constipation Miscellaneous (Probiotic Screen) 1 ea MC PRN PRN PRN Reason: PROTOCOL Stop: 07/24/17 14:58 Multivitamins/Vitamin C (Theragran) 1 tab PO DAILY [facility] Stop: 07/22/17 08:59 Last Admin: 05/28/17 08:48 Dose: 1 tab Zolpidem Tartrate (Ambien) 5 mg PO HS PRN PRN Reason: Insomnia Stop: 07/21/17 12:40 General: alert HEENT: NC/AT, PERRLA Neck: Supple Lungs: CTAB Cardiovascular: RRR, Normal S1, without murmur Extremities: clear Internal Medicine Assmt/Plan - Assessment Assessment: DM-2 GENERALIZED WEAKNESS ANXIETY SCHIZOPHRENIA NICOTINE ABUSE - Plan Plan: monitor glucose fall precautions continue current plan of care Nutritional Asmnt/Malnutr-PDOC - Dietary Evaluation Malnutrition Findings (Please click <Entered> for more info): Nutritional Asmnt/Malnutrition Start: 05/26/17 18: 15 Text: Status: Complete Freq: Document 05/26/17 18:15 GSUN (Rec: 05/26/17 18:27 GSUN [email or web address]) Nutritional Asmnt/Malnutrition Patient General Information Nutritional Screening Moderate Risk Screening Diagnosis Schizophrenia chronic paranoid with acute exacerbation Pertinent Medical Hx/Surgical Hx DM2, generalized weakness, anxiety, schizophrenia, nicotine abuse Subjective Information 56 year old male. Pt usually seen ambulating via wheelchair . Spoke to pt in rec room, pt was alert with short resposnes . Pt denied nutritinoal concerns at this time. Pt is edentulous, stated tolerating current diet order. Avg PO intake 75-100% of meals since adm, meeting nutritinoal needs . Limited physical assessment, pt appeared lean, no severe muscle/fat wasting noted. Current Diet Order/ Nutrition Support [id number], mech soft chopped Pertinent Medications Haldol, Novolog, Culturelle, MOM, Theragran Pertinent Labs POC glucose 76-103 since adm, with 2 episodes 67L and 65L Nutritional Hx/Data Height 5 ft 6 in Height (Calculated Centimeters) 167.6 Current Weight (lbs) 123 lb 12.8 oz Weight (Calculated Kilograms) 56.2 Weight (Calculated Grams) 14961.7 [place] Body Weight 142 Weight Status Approriate GI Symptoms Food Allergies No Skin Integrity/Comment: Eavn 16. Dryness. Current %PO Good (75-100%) Estimated Nutritional Goals Calories/Kcals/Kg IBW 142lb/64.5kg Kcals Calculated 1613-1935kcal (25-30kcal/kg) Protein Calculated 65g (1g/kg) Fluid: ml 1613-1935ml (1ml/kcal) Nutritional Problem 1. Problem Problem No nutritinoal problem at this time. Intervention/Recommendation Recommendations by RD PPN/TPN Comments 1. Continue with current diet order as pt tolerates, meeting nutritnioal needs, and POC glucose <105. Avg PO intake is adequate to promtoe weight gain. 2. Monitor glucose levels, 2 episodes of hypoglycemia noted . Nursing staff to adjust insulin. Recommend removing CCHO restriction if hypoglycemia persists. Expected Outcomes/Goals Expected Outcomes/Goals 1. PO intake continue to meet at least 75% of estimated nutritinoal needs.
--- NOTE | 2017-05-28 23:44 | Progress Notes ---
DATE: 05/28/2017 SUBJECTIVE: Staff was spoken to. The patient is interviewed. Mood is noted to be irritable. Affect is constricted. The patient has paranoia, but denies any command hallucinations. Insight and judgment are noted to be improving. Impulse control seems to be fair today, but the patient has no place to return to. The patient is reported to have been accepted at [facility]. Possibly, the patient is going to be discharged once the placement is available. JOB# [id number]
[2017-05-29] MEDS: INSULIN ASPART SLIDING SCALE 100 UNITS/ML UNIT SUBQ SCH ×2 (06:47→13:44)
[2017-05-29] MEDS: Lactobacillus Rhamnosus 10 Billion CFU Capsule PO SCH (08:53)
[2017-05-29] MEDS: Multivitamin Tab PO SCH (08:57)
--- NOTE | 2017-05-29 12:41 | Internal Medicine Prog Note ---
Internal Medicine Subjective - Subjective Service Date: 05/29/17 Patient is:: awake Per staff patient has:: no adverse event Internal Medicine Objective - Results Recent Labs: Laboratory Last Values POC Glucose 88 MG/DL (70 - 105) 05/29/17 06:35 - Physical Exam Vitals and I&O: Vital Signs Temp 97.9 F 05/29/17 06:37 Pulse 84 05/29/17 06:37 Resp 19 05/29/17 06:37 BP 110/68 05/29/17 06:37 Pulse Ox 97 05/29/17 06:37 Intake & Output 05/28/17 05/29/17 05/29/17 18:59 06:59 18:59 Intake Total 1200 120 Balance 1200 120 Intake: Oral 1200 120 Other: # Voids 3 # Bowel Movements 1 Active Medications: Current Medications Acetaminophen (Tylenol) 650 mg PO Q4HR PRN PRN Reason: Pain Or Fever above 101 Stop: 07/21/17 12:37 Al Hydrox/Mg Hydrox/Simethicone (Maalox) 30 ml PO Q6HR PRN PRN Reason: Dyspepsia Stop: 07/21/17 12:37 Benztropine Mesylate (Cogentin) 0.5 mg PO BID [facility] Stop: 07/23/17 16:59 Last Admin: 05/29/17 08:53 Dose: 0.5 mg Haloperidol Decanoate (Haldol Dec) 50 mg IM Q30D [facility] Stop: 07/22/17 09:59 Last Admin: 05/23/17 10:00 Dose: 50 mg Insulin Aspart (Novolog Insulin Sliding Scale) 0 units SUBQ ACHS SARA PRN Reason: Protocol Stop: 07/21/17 16:29 Last Admin: 05/29/17 06:47 Dose: Not Given Lactobacillus Rhamnosus (Culturelle) 1 each PO DAILY [facility] Stop: 07/24/17 15:59 Last Admin: 05/29/17 08:53 Dose: 1 each Lorazepam (Ativan) 1 mg PO Q6HR PRN; Protocol PRN Reason: Anxiety Stop: 07/21/17 12:35 Last Admin: 05/26/17 09:31 Dose: 1 mg Lorazepam (Ativan) 0.5 mg PO Q4HR PRN; Protocol PRN Reason: Agitation Stop: 06/21/17 12:40 Magnesium Hydroxide (Milk Of Magnesia) 30 ml PO HS PRN PRN Reason: Constipation Miscellaneous (Probiotic Screen) 1 ea MC PRN PRN PRN Reason: PROTOCOL Stop: 07/24/17 14:58 Multivitamins/Vitamin C (Theragran) 1 tab PO DAILY [facility] Stop: 07/22/17 08:59 Last Admin: 05/29/17 08:57 Dose: 1 tab Zolpidem Tartrate (Ambien) 5 mg PO HS PRN PRN Reason: Insomnia Stop: 07/21/17 12:40 General: alert HEENT: NC/AT, PERRLA Neck: Supple Lungs: CTAB Cardiovascular: RRR, Normal S1, without murmur Extremities: clear Internal Medicine Assmt/Plan - Assessment Assessment: DM-2 GENERALIZED WEAKNESS ANXIETY SCHIZOPHRENIA NICOTINE ABUSE - Plan Plan: monitor glucose fall precautions continue current plan of care Nutritional Asmnt/Malnutr-PDOC - Dietary Evaluation Malnutrition Findings (Please click <Entered> for more info): Nutritional Asmnt/Malnutrition Start: 05/26/17 18: 15 Text: Status: Complete Freq: Document 05/26/17 18:15 GSUN (Rec: 05/26/17 18:27 GSUN [email or web address]) Nutritional Asmnt/Malnutrition Patient General Information Nutritional Screening Moderate Risk Screening Diagnosis Schizophrenia chronic paranoid with acute exacerbation Pertinent Medical Hx/Surgical Hx DM2, generalized weakness, anxiety, schizophrenia, nicotine abuse Subjective Information 56 year old male. Pt usually seen ambulating via wheelchair . Spoke to pt in rec room, pt was alert with short resposnes . Pt denied nutritinoal concerns at this time. Pt is edentulous, stated tolerating current diet order. Avg PO intake 75-100% of meals since adm, meeting nutritinoal needs . Limited physical assessment, pt appeared lean, no severe muscle/fat wasting noted. Current Diet Order/ Nutrition Support [id number], mech soft chopped Pertinent Medications Haldol, Novolog, Culturelle, MOM, Theragran Pertinent Labs POC glucose 76-103 since adm, with 2 episodes 67L and 65L Nutritional Hx/Data Height 5 ft 6 in Height (Calculated Centimeters) 167.6 Current Weight (lbs) 123 lb 12.8 oz Weight (Calculated Kilograms) 56.2 Weight (Calculated Grams) 79624.7 [place] Body Weight 142 Weight Status Approriate GI Symptoms Food Allergies No Skin Integrity/Comment: Evan 16. Dryness. Current %PO Good (75-100%) Estimated Nutritional Goals Calories/Kcals/Kg IBW 142lb/64.5kg Kcals Calculated 1613-1935kcal (25-30kcal/kg) Protein Calculated 65g (1g/kg) Fluid: ml 1613-1935ml (1ml/kcal) Nutritional Problem 1. Problem Problem No nutritinoal problem at this time. Intervention/Recommendation Recommendations by RD PPN/TPN Comments 1. Continue with current diet order as pt tolerates, meeting nutritnioal needs, and POC glucose <105. Avg PO intake is adequate to promtoe weight gain. 2. Monitor glucose levels, 2 episodes of hypoglycemia noted . Nursing staff to adjust insulin. Recommend removing CCHO restriction if hypoglycemia persists. Expected Outcomes/Goals Expected Outcomes/Goals 1. PO intake continue to meet at least 75% of estimated nutritinoal needs.
--- NOTE | 2017-05-29 13:08 | Progress Notes ---
DATE: 05/29/2017 PSYCHIATRIC PROGRESS NOTE SUBJECTIVE: Staff was spoken to. The patient is interviewed. Mood is noted to be anxious. The patient has paranoia, but denies any command hallucinations. Insight and judgment noted to be improving. Impulse control is noted to be fair. Paranoid and no command hallucinations are noted. The patient is currently on Haldol and he was given the Haldol Decanoate. The patient has been able to participate in the groups at this time. ASSESSMENT: The patient's psychosis is resolving. PLAN: To continue the patient with the current medications. I encouraged the patient to verbalize the concerns rather than to act out. If placement is available, the patient possibly is going to be discharged today. JOB# [id number]
--- NOTE | 2017-05-30 19:11 | Discharge Summary ---
DATE OF DISCHARGE: 05/29/2017 PSYCHOLOGY DISCHARGE NOTE SUBJECTIVE: The patient is seen in his room. The patient presents as cooperative. Mood is somewhat anxious. The patient continues to be somewhat suspicious with paranoia. The patient denied any hallucinations. The patient has been proactive with his medication regimen. The patient states that he is agreeable to being discharged and to his placement. The patient has had no behavioral problems in the last 3-4 days. OBJECTIVE: Mood is stable. Affect is constricted. Thought process indicates suspiciousness and some paranoid ideation. The patient denies any auditory or visual hallucinations, command type or persecutory type. The patient's behavior has been compliant with care and treatment. ASSESSMENT: History of schizophrenia, chronic paranoid type. PLAN: The patient is stable with current medications. The patient anticipates discharge today and is agreeable and compliant with the discharge plan. This account underwriter reviewed coping strategies for chronic long-term severe mental illness. Reality testing was given and is fair. Reality integration was also provided. The patient was able to understand the coping strategies provided, which included supportive therapy and to verbalize his concerns versus acting out. We provided also the basic coping mechanisms to adjust to his new placement. Psychology Service is discontinued as of this date. Thank you Dr. Bishop for this consult. [facility]# [id number]
== END 2017-05-29 13:45 | DRG 885 ==
LOC: GERO 10:02
DX: F20.0 Paranoid schizophrenia (principal); E11.9 Type 2 diabetes mellitus without complications; R53.1 Weakness; F41.9 Anxiety disorder, unspecified; F17.210 Nicotine dependence, cigarettes, uncomplicated
CPT/HCPCS: 36415-UA; 80048-TC; 82948-90; 90899; 94760; A4216; G0410; J1200; J1631; J1815; Z7610

== ENCOUNTER 2017-11-23 09:52 | Inpatient (IN) | payer MEDICARE, MEDICAID ==
--- NOTE | 2017-11-23 10:14 | ED Physician Chart ---
ED Chief Complaint/HPI - Patient Information Date Seen:: 11/23/17 Time Seen:: 09:50 Chief Complaint:: AMS History of Present Illness:: pt presents with report of ALOC and AMS; no report of LOC, trauma, visual or gait changes, decreased activity, H/As, neck pain, C/P, cough, SOB, Abd. Pain, A /N/V/D/C, fever, chills, or urinary s/s; pt's last tetanus shot: < 5 years; UTD Allergies:: Allergies Allergy/AdvReac Type Severity Reaction Status Date / Time No Known Allergies Allergy Verified 05/21/17 20:03 Historian:: Patient, EMS Review:: Nurse's Note Reviewed, Old Chart Reviewed, EMS run form Reviewed ED Review of Systems - Review of Systems General/Constitutional: No fever, No chills, No weight loss, No weakness, No diaphoresis, No edema, No loss of appetite Skin: No skin lesions, No rash, No bruising Head: No headache, No light-headedness Eyes: No loss of vision, No pain, No diplopia ENT: No earache, No nasal drainage, No sore throat, No tinnitus Neck: No neck pain, No swelling, No thyromegaly, No stiffness, No mass noted Cardio Vascular: No chest pain, No palpitations, No PND, No orthopnea, No edema Pulmonary: No SOB, No cough, No sputum, No wheezing GI: No nausea, No vomiting, No diarrhea, No pain, No melena, No hematochezia, No constipation, No hematemesis G/U: No dysuria, No frequency, No hematuria, No nacturia Musculoskeletal: No bone or joint pain, No back pain, No muscle pain Endocrine: No polyuria, No polydipsia Psychiatric: Prior psych history, No depression, No anxiety, No suicidal ideation, No homicidal ideation, Auditory hallucination, No visual hallucination Hematopoietic: No bruising, No lymphadenopathy Allergic/Immuno: No urticaria, No angioedema Neurological: No syncope, No focal symptoms, No weakness, No paresthesia, No headache, No seizure, No dizziness, Confusion, No vertigo ED Past Medical History - Past Medical History Obtainable: Yes Past Medical History: DM, Dyslipidemia Family History: Diabetes Melitus, HTN Social History: Smoker, No Alcohol, No Drug Use, Single, Care Facility Surgical History: None Psychiatricy History: Schizophrenia Medication: Reviewed Family Medical History - Family Member Mother History Unknown: Yes ED Physical Exam - Physical Examination General/Constitutional: Awake, Well-developed, well-nourished, Alert, No distress, GCS 15, Non-toxic appearing, Ambulatory Head: Atraumatic Eyes: Lids, conjuctiva normal, PERRL, EOMI Skin: Nl inspection, No rash, No skin lesions, No ecchymosis, Well hydrated, No lymphadenopathy ENMT: External ears, nose nl, TM canals nl, Nasal exam nl, Lips, teeth, gums nl , Oropharynx nl, Tonsils nl Neck: Nontender, Full ROM w/o pain, No JVD, No nuchal rigidity, No bruit, No mass, No stridor Respiratory: Nl effort/Exclusion, Clear to Auscultation, No Wheeze/Rhonchi/Rales Cardio Vascular: RRR, No murmur, gallop, rubs, NL S1 S2, Carotid/Femoral/Distal pulses equal bilaterally GI: No tenderness/rebounding/guarding, No organomegaly, No hernia, Normal BS's, Nondistended, No mass/bruits, No McBurney tenderness : No CVA tenderness Extremities: No tenderness or effusion, Full ROM, normal strength in all extremities, No edema, Normal digits & nails Neuro/Psych: Alert/oriented, DTR's symmetric, Normal sensory exam, Normal motor strength, Judgement/insight normal, Mood normal, Normal gait, No focal deficits Misc: Normal back, No paraspinal tenderness ED Labs/Radiology/EKG Results - Lab Results Results: Laboratory Tests 11/23/17 09:59 POC Glucose 60 L Comments:: Na+: 132 - Radiology Results Comments:: NAD - EKG Interpretations EKG Time:: 10:00 Rate & Rhythm: 61; NSR Comments:: non-specific st-t changes ED Septic Shock - . Is Septic Shock (SBP<90, OR Lactate>4 mmol\L) present?: No ED Reassessment (Disposition) - Reassessment Reassessment Condition:: Improved - Diagnosis Diagnosis:: Diabetes Mellitus; AMS; AlLOC; Dehydration; Hypoglycemia - Aftercare/Follow up Instructions Aftercare/Follow-Up Instructions:: Counseled pt regarding lab results/diagnosis & need follow up, Counseled pt & family regarding lab results/diagnosis & need follow up - Patient Disposition Discharge/Transfer:: Acute Care w/in this hosp Accepting Physician:: Dr. Sutton Time Called:: 1200 Time Responded:: 12:00 Admitted to:: Med/Surg Spoke to:: Dr. Sutton Admitting Medical Physician:: Dr. Sutton Condition at Disposition:: Stable, Improved
[2017-11-23 10:21] LABS: % EOSINOPHILS 1.5 % (0.0-5.0); % LYMPHOCYTES 11.1 % (20.0-50.0); % MONOCYTES 8.3 % (2.0-10.0); % NEUTROPHILS 79.1 % (40.0-80.0); EOSINOPHILE ABSOLUTE 0.1 Th/cmm (0.1-0.4); HEMATOCRIT 43.2 % (41.0-60); LYMPHOCYTE ABSOLUTE 0.6 Th/cmm (1.5-3.0); MEAN CELL VOLUME 88.2 fl (80-99); MEAN CORPUSCULAR HEMOGLOBIN 28.5 pg (26.0-30.0); MEAN CORPUSCULAR HGB CONC 32.3 pg (28.0-36.0); MEAN PLATELET VOLUME 7.7 fl; MONOCYTE ABSOLUTE 0.5 Th/cmm (0.3-1.0); NEUTROPHILE ABSOLUTE 4.5 Th/cmm (1.8-8.0); PLATELET COUNT 150 Th/cmm (150-400); RED CELL DISTRIBUTION WIDTH 12.4 % (11.5-20.0); WHITE BLOOD COUNT 5.7 Th/cmm (4.8-10.8)
[2017-11-23 10:35] LABS: ALB/GLOB RATIO 1.6 (1.0-1.8); ALBUMIN 4.4 gm/dL (4.2-5.5); ALKALINE PHOSPHATASE 57 U/L (34-104); ANION GAP 8.6 (7.0-16.0); BILIRUBIN,TOTAL 0.7 mg/dL (0.3-1.0); BUN - UREA NITROGEN 12 mg/dL (7-25); CALCIUM SERUM 9.6 mg/dL (8.6-10.3); CARBON DIOXIDE 29.6 mEq/L (21.0-31.0); CHLORIDE 98 mEq/L (98-107); CHOLESTEROL 175 mg/dL (<200); CREATININE - SERUM 0.7 mg/dL (0.7-1.3); CREATININE KINASE 164 U/L (30-223); GFR AFRICAN-AMERICAN > 60.0 ml/min (>90); GFR NON AFRICAN-AMERICAN > 60.0 ml/min; GLUCOSE 86 mg/dL (70-105); HDL -HIGH DENSITY LIPOPROTEIN 54 mg/dL (23-92); POTASSIUM SERUM 4.2 mEq/L (3.5-5.1); SGOT 19 U/L (13-39); SGPT/ALT 13 U/L (7-52); SODIUM SERUM 132 mEq/L (136-145); TOTAL PROTEIN,SERUM 7.2 gm/dL (6.0-8.3); TRIGLYCERIDES 57 mg/dL (<150)
[2017-11-23 10:50] LABS: PROTHROMBIN TIME (TEST) 10.4 SECONDS (9.5-11.5)
--- NOTE | 2017-11-23 11:35 | Diagnostic Imaging Report ---
CT scan of the brain without contrast History: Headache, trauma Total DLP equals CTDI equals Axial sections were obtained from the base of the skull to the vertex. There is a normal ventricular system size. No focal parenchymal lesions are seen. No evidence of any mass effect or shift of midline structures. No extra-axial masses or abnormal fluid collections. Impression: Negative examination
[2017-11-23] MEDS ORDERED: guaiFENesin 200 MG/10 ML UDC PO PRN (15:36)
[2017-11-23] MEDS ORDERED: Non-Formulary Item 1 EA (Glucagon Hcl [Glucagon Hcl] 1 MG) SUBQ SCH (15:45)
[2017-11-23] MEDS ORDERED: HALOPERIDOL DECANOATE 50 MG IM SCH (15:45)
[2017-11-23] MEDS: D5-0.9%NS 1,000 ML IV SCH (18:09)
[2017-11-23] MEDS: INSULIN ASPART, RECOMBINANT 100 UNITS/ML SUBQ SCH ×2 (18:23→21:35)
[2017-11-23 18:53] VITALS: BP 95/45
[2017-11-23] MEDS: Albuterol Nebulizer 2.5mg/3mL HHN SCH (20:42)
[2017-11-23] MEDS: Ipratropium Neb 0.5 mg/2.5 mL UD IH SCH (20:42)
[2017-11-23] MEDS ORDERED: Non-Formulary Item 1 EA (Melatonin [Melatonin] 6 MG) PO SCH (21:00)
[2017-11-24] MEDS: D5-0.9%NS 1,000 ML IV SCH (05:20)
[2017-11-24] MEDS: INSULIN ASPART, RECOMBINANT 100 UNITS/ML SUBQ SCH ×2 (06:53→13:00)
[2017-11-24] MEDS: Ipratropium Neb 0.5 mg/2.5 mL UD IH SCH ×2 (07:43→11:33)
[2017-11-24] MEDS: Albuterol Nebulizer 2.5mg/3mL HHN SCH ×2 (07:43→11:33)
[2017-11-24] MEDS ORDERED: Multivitamin Tab PO SCH (09:00)
[2017-11-24 10:49] LABS: URINE MICROSCOPIC INDICATED? YES; URINE SOURCE CATH
[2017-11-24 10:54] LABS: URINE BILIRUBIN NEGATIVE (NEGATIVE); URINE BLOOD TRACE (NEGATIVE); URINE GLUCOSE (UA) NEGATIVE (NEGATIVE); URINE KETONE NEGATIVE (NEGATIVE); URINE LEUKOCYTE ESTERASE NEGATIVE (NEGATIVE); URINE NITRATE NEGATIVE (NEGATIVE); URINE PH 6.5 (4.6 - 8.0); URINE PROTEIN NEGATIVE (NEGATIVE); URINE UROBILINOGEN 0.2 E.U./dL (0.2 - 1.0)
[2017-11-24 10:55] LABS: URINE CLARITY CLEAR (CLEAR); URINE COLOR YELLOW
[2017-11-24 11:01] LABS: URINE BACTERIA FEW /hpf (NONE SEEN); URINE EPITHELIAL CELLS RARE /lpf (FEW); URINE WBC 0-2 /hpf (0-5)
--- NOTE | 2017-11-24 12:20 | Internal Medicine Prog Note ---
Internal Medicine Subjective - Subjective Service Date: 11/24/17 ([facility] [id number]) Internal Medicine Objective - Results Result Diagrams: 11/23/17 10:10 11/23/17 10:10 Recent Labs: Laboratory Last Values WBC 5.7 Th/cmm (4.8-10.8) 11/23/17 10:10 RBC 4.90 Mil/cmm (4.30-5.70) 11/23/17 10:10 Hgb 14.0 gm/dL (12-16) 11/23/17 10:10 Hct 43.2 % (41.0-60) 11/23/17 10:10 MCV 88.2 fl (80-99) 11/23/17 10:10 MCH 28.5 pg (26.0-30.0) 11/23/17 10:10 MCHC Differential 32.3 pg (28.0-36.0) 11/23/17 10:10 RDW 12.4 % (11.5-20.0) 11/23/17 10:10 Plt Count 150 Th/cmm (150-400) 11/23/17 10:10 MPV 7.7 fl 11/23/17 10:10 Neutrophils % 79.1 % (40.0-80.0) 11/23/17 10:10 Lymphocytes % 11.1 % (20.0-50.0) L 11/23/17 10:10 Monocytes % 8.3 % (2.0-10.0) 11/23/17 10:10 Eosinophils % 1.5 % (0.0-5.0) 11/23/17 10:10 Basophils % 0.0 % (0.0-2.0) 11/23/17 10:10 PT 10.4 SECONDS (9.5-11.5) 11/23/17 10:10 INR 1.00 (0.5-1.4) 11/23/17 10:10 Sodium 132 mEq/L (136-145) L 11/23/17 10:10 Potassium 4.2 mEq/L (3.5-5.1) 11/23/17 10:10 Chloride 98 mEq/L (98-107) 11/23/17 10:10 Carbon Dioxide 29.6 mEq/L (21.0-31.0) 11/23/17 10:10 Anion Gap 8.6 (7.0-16.0) 11/23/17 10:10 BUN 12 mg/dL (7-25) 11/23/17 10:10 Creatinine 0.7 mg/dL (0.7-1.3) 11/23/17 10:10 Est GFR ( Amer) > 60.0 ml/min (>90) 11/23/17 10:10 Est GFR (Non-Af Amer) > 60.0 ml/min 11/23/17 10:10 BUN/Creatinine Ratio 17.1 11/23/17 10:10 Glucose 86 mg/dL (70-105) 11/23/17 10:10 POC Glucose 84 MG/DL (70 - 105) 11/24/17 11:59 Calcium 9.6 mg/dL (8.6-10.3) 11/23/17 10:10 Total Bilirubin 0.7 mg/dL (0.3-1.0) 11/23/17 10:10 AST 19 U/L (13-39) 11/23/17 10:10 ALT 13 U/L (7-52) 11/23/17 10:10 Alkaline Phosphatase 57 U/L (34-104) 11/23/17 10:10 Creatine Kinase 164 U/L (30-223) 11/23/17 10:10 Troponin I 0.01 ng/mL (0.01-0.05) 11/23/17 10:10 B-Natriuretic Peptide 99.6 pg/mL (5.0-100.0) 11/23/17 10:10 Total Protein 7.2 gm/dL (6.0-8.3) 11/23/17 10:10 Albumin 4.4 gm/dL (4.2-5.5) 11/23/17 10:10 Globulin 2.8 gm/dL 11/23/17 10:10 Albumin/Globulin Ratio 1.6 (1.0-1.8) 11/23/17 10:10 Triglycerides 57 mg/dL (<150) 11/23/17 10:10 Cholesterol 175 mg/dL (<200) 11/23/17 10:10 LDL Cholesterol Direct 119 mg/dL (75-193) 11/23/17 10:10 HDL Cholesterol 54 mg/dL (23-92) 11/23/17 10:10 TSH 0.54 uIU/ml (0.34-5.60) 11/23/17 10:10 Urine Source CATH 11/24/17 10:45 Urine Color YELLOW 11/24/17 10:45 Urine Clarity CLEAR (CLEAR) 11/24/17 10:45 Urine pH 6.5 (4.6 - 8.0) 11/24/17 10:45 Ur Specific [place] 1.015 (1.005-1.030) 11/24/17 10:45 Urine Protein NEGATIVE mg/dL (NEGATIVE) 11/24/17 10:45 Urine Glucose (UA) NEGATIVE mg/dL (NEGATIVE) 11/24/17 10:45 Urine Ketones NEGATIVE mg/dL (NEGATIVE) 11/24/17 10:45 Urine Blood TRACE (NEGATIVE) 11/24/17 10:45 Urine Nitrate NEGATIVE (NEGATIVE) 11/24/17 10:45 Urine Bilirubin NEGATIVE (NEGATIVE) 11/24/17 10:45 Urine Urobilinogen 0.2 E.U./dL (0.2 - 1.0) 11/24/17 10:45 Ur Leukocyte Esterase NEGATIVE (NEGATIVE) 11/24/17 10:45 Urine RBC 2-5 /hpf (0-5) H 11/24/17 10:45 Urine WBC 0-2 /hpf (0-5) 11/24/17 10:45 Ur Epithelial Cells RARE /lpf (FEW) 11/24/17 10:45 Urine Bacteria FEW /hpf (NONE SEEN) 11/24/17 10:45 Urine Mucus FEW /lpf (FEW) 11/24/17 10:45 - Physical Exam Vitals and I&O: Vital Signs Temp 98.8 F 11/24/17 05:32 Pulse 75 11/24/17 11:35 Resp 20 11/24/17 11:35 BP 140/73 11/24/17 05:32 Pulse Ox 98 11/24/17 11:35 Intake & Output 11/23/17 11/24/17 11/24/17 18:59 06:59 18:59 Intake Total 1134.667 452 Output Total 400 Balance 734.667 452 Weight (lbs) 130 lb 9.6 oz Intake: Intake, IV Amount 894.667 452 D5-0.9%Ns 1,000 ml @ 80 894.667 452 mls/hr IV .[id number] [facility] Rx #:[id number] Oral 240 Output: Urine 400 Other: # Voids 2 # Bowel Movements 0 Weight Source Bedscale Active Medications: Current Medications Acetaminophen (Tylenol) 650 mg PO Q4H PRN PRN Reason: Pain Or Fever above 101 Stop: 01/22/18 15:35 Albuterol Sulfate (Albuterol 2.5mg/3ml Neb Ud) 2.5 mg HHN QIDRT [facility] Stop: 01/22/18 18:59 Last Admin: 11/24/17 11:33 Dose: Not Given Benztropine Mesylate (Cogentin) 0.5 mg PO BID [facility] Stop: 01/22/18 16:59 Last Admin: 11/24/17 09:25 Dose: 0.5 mg Guaifenesin (Robitussin) 200 mg PO Q4HR PRN PRN Reason: Cough or Congestion Stop: 01/22/18 15:35 Last Admin: 11/23/17 18:25 Dose: 200 mg Haloperidol Decanoate (Haldol Dec) 50 mg IM QMONTH [facility] Stop: 02/02/18 09:59 Dextrose/Sodium Chloride (D5-0.9%Ns) 1,000 mls @ 80 mls/hr IV .[id number] [facility] Stop: 01/22/18 15:44 Last Infusion: 11/24/17 10:59 Dose: 0 mls/hr Insulin Aspart (Novolog) 0 units SUBQ ACHS [facility] PRN Reason: Protocol Stop: 01/22/18 16:29 Last Admin: 11/24/17 06:53 Dose: Not Given Ipratropium Raphine (Atrovent Neb 0.5mg/2.5ml) 0.5 mg IH QIDRT [facility] Stop: 01/22/18 18:59 Last Admin: 11/24/17 11:33 Dose: Not Given Lorazepam (Ativan) 1 mg PO Q6H PRN; Protocol PRN Reason: Anxiety Stop: 01/22/18 15:33 Miscellaneous (Melatonin [Melatonin]) 6 mg PO HS [facility] Stop: 01/22/18 20:59 Multivitamins/Vitamin C (Theragran) 1 tab PO DAILY [facility] Stop: 01/23/18 08:59 Last Admin: 11/24/17 09:25 Dose: 1 tab Ondansetron HCl (Zofran) 4 mg IV Q8H PRN PRN Reason: Nausea / Vomiting Stop: 01/22/18 15:35
--- NOTE | 2017-11-24 13:15 | History & Physical ---
ADMIT DATE: 11/24/2017 CHIEF COMPLAINT: Hypoglycemia. HISTORY OF PRESENT ILLNESS: This is a 57-year-old -[place]ammarinese male who is a resident of [facility], who was brought here to [facility] due to altered mental status and hypoglycemia. Upon examination, the patient is awake, confused, in no apparent distress. PAST MEDICAL HISTORY: Diabetes, anxiety, schizophrenia, and psychosis. FAMILY HISTORY: Noncontributory. SOCIAL HISTORY: The patient is a current smoker. The patient is a resident of [facility]. SURGICAL HISTORY: I and D of the left side of the neck. REVIEW OF SYSTEMS: Unable to obtain due to patient's mental status. The patient is confused. PHYSICAL EXAMINATION: GENERAL: The patient is well-developed, well-nourished, no apparent distress. VITAL SIGNS: Temperature 99.8, heart rate 63, blood pressure 140/73, respirations 20, and O2 100%. HEENT: Head normocephalic and atraumatic. NECK: Supple. No mass. LUNGS: Clear bilaterally. HEART: ____. ABDOMEN: Soft and nontender. LABORATORY DATA: WBC 5.7, H and H 14.0/43.2, platelet of 150. Sodium 132, potassium 4.2, chloride 98, BUN 12, and creatinine 0.7. The patient had a CT of the chest done and the impression is negative examination. Also, a chest x-ray was also done and the impression is no acute abnormalities. ASSESSMENT: Hypoglycemia, change in mental status, diabetes, generalized weakness, anxiety, and schizophrenia. PLAN: We will monitor the patient's glucose level. We will have D50 p.r.n. We will have psychiatrist followup. If patient is medically stable, I will consider transfer patient to Geropsych unit. JOB# [id number]
== END 2017-11-24 14:53 | DRG 637 ==
LOC: ER 09:52 → MSI 17:00
PROVIDERS: ADMIT Internal Medicine; ATTEND Internal Medicine
DX: E11.649 Type 2 diabetes mellitus with hypoglycemia without coma (principal); G93.41 Metabolic encephalopathy; F41.9 Anxiety disorder, unspecified; F20.9 Schizophrenia, unspecified; F17.210 Nicotine dependence, cigarettes, uncomplicated; F29 Unspecified psychosis not due to a substance or known physiological condition; E86.0 Dehydration; E78.5 Hyperlipidemia, unspecified; Z83.3 Family history of diabetes mellitus; Z82.49 Family history of ischemic heart disease and other diseases of the circulatory system
CPT/HCPCS: 36415-UA; 70450-TC; 71045-TC; 80053-TC; 80061-TC; 81001-TC; 82550-TC; 82948-90; 83880-TC; 84443-TC; 84484-TC; 85025-TC; 85610-TC; 90779; 93005; 94640; 94760; J1815; J7030; J7042; J7613; Z7610

== ENCOUNTER 2017-11-24 14:53 | Inpatient (IN) | payer MEDICARE, MEDICAID ==
[2017-11-24 17:02] VITALS: BP 101/67
[2017-11-24] MEDS ORDERED: Maalox 30 mL Cup PO PRN (17:02)
[2017-11-24] MEDS ORDERED: Magnesium Hydroxide (MOM) 30 mL UDC PO PRN (17:02)
[2017-11-24] MEDS ORDERED: guaiFENesin 200 MG/10 ML UDC PO PRN (17:12)
[2017-11-24] MEDS ORDERED: Non-Formulary Item 1 EA (Glucagon Hcl [Glucagon Hcl] 1 MG) SUBQ SCH (17:15)
[2017-11-24] MEDS ORDERED: Albuterol Nebulizer 2.5mg/3mL HHN SCH (19:00)
[2017-11-24] MEDS ORDERED: Ipratropium Neb 0.5 mg/2.5 mL UD HHN SCH (19:00)
[2017-11-24] MEDS: Albuterol/Ipratropium Neb 3 ML AERS HHN SCH (19:40)
[2017-11-24] MEDS ORDERED: INSULIN ASPART, RECOMBINANT 100 UNITS/ML SUBQ SCH (21:00)
[2017-11-24 21:17] LABS: GLUCOSE ACCUCHECK NOVA 120 mg/dL (70 - 105)
[2017-11-24] MEDS: INSULIN ASPART SLIDING SCALE 100 UNITS/ML UNIT SUBQ SCH (21:39)
--- NOTE | 2017-11-25 03:33 | Psychosocial Evaluation ---
DATE OF SERVICE: 11/24/2017 IDENTIFYING DATA: The patient is a 57-year-old -[place] male, resident of [facility]. Information obtained by directly interviewing the patient as well as reviewing the admission papers and they are reliable. JUSTIFICATION OF HOSPITALIZATION: The patient is admitted on a voluntary basis in view of his acute psychosis and agitation. CHIEF COMPLAINT: "I should not be here. I should go home." HISTORY OF PRESENT ILLNESS: This is one of multiple psychiatric hospitalizations for this patient who has been diagnosed to have schizophrenia, chronic paranoid type. The patient had been under my care in April. On the day of the hospitalization, the patient has been screaming and yelling and has been very destructive, not be contained at a lower level of care and hence he has been transferred over here for stabilization. PAST PSYCHIATRIC HISTORY: Please refer to the above. MEDICAL HISTORY AND PHYSICAL EXAMINATION: Requested to be done by Dr. Partida. SUBSTANCE ABUSE HISTORY: None. PHYSICAL OR SEXUAL ABUSE HISTORY: None. LEGAL PROBLEMS: None at this time. STRENGTH AND ASSETS: The patient is motivated. MENTAL STATUS EXAMINATION: The patient is a 57-year-old thin built, superficially cooperative. The patient is not making any sense. The patient is all over the place. The patient's insight and judgment at this time are noted to be very much impaired. Impulse control is noted to be limited. Coping skills are also noted to be limited. The patient has been having difficult time to cope with the stress. The patient is actively responding to internal stimuli. The patient has been focused on getting out of here and having a smoke break. The patient is alert and aware that he is in the hospital. DIAGNOSTIC IMPRESSION: AXIS I: Schizophrenia, chronic paranoid type with acute exacerbation. AXIS II: None. AXIS III: As per Dr. Partida. IMMEDIATE TREATMENT PLAN: The patient is going to be observed on inpatient unit, provided with supportive psychotherapy. The patient is going to be closely monitored. I encouraged him to verbalize the concerns rather than to act out. The patient is going to be continued on the haloperidol and the patient is going to be encouraged to verbalize the concerns rather than to act out. Once stabilized, the patient is going to be discharged to [facility] to be followed up on an outpatient basis. The patient is also going to be placed on the low dose of the Risperdal to see if it is going to be of some help rather than with the haloperidol. The patient is going to be provided with supportive therapy. ESTIMATED LENGTH OF STAY: Three to five days. DISCHARGE CRITERIA: When he no longer is threat to self or others and be able to cope up with the stress. JOB# [id number]
[2017-11-25 06:30] LABS: GLUCOSE ACCUCHECK NOVA 97 mg/dL (70 - 105)
[2017-11-25] MEDS: INSULIN ASPART SLIDING SCALE 100 UNITS/ML UNIT SUBQ SCH ×4 (07:04→21:32)
[2017-11-25] MEDS: Albuterol/Ipratropium Neb 3 ML AERS HHN SCH ×4 (07:27→19:25)
[2017-11-25] MEDS ORDERED: Multivitamin Tab PO SCH (09:00)
[2017-11-25] MEDS: Multivitamin Tab PO SCH (09:31)
[2017-11-25] MEDS: risperiDONE 1 mg/mL 30 mL Bottle PO SCH ×2 (09:31→17:20)
[2017-11-25 12:26] LABS: GLUCOSE ACCUCHECK NOVA 79 mg/dL (70 - 105)
--- NOTE | 2017-11-25 13:52 | Internal Medicine Prog Note ---
Internal Medicine Subjective - Subjective Service Date: 11/25/17 Patient seen and examined:: with staff Patient is:: awake Per staff patient has:: tolerating meds Internal Medicine Objective - Results Recent Labs: Laboratory Last Values POC Glucose 79 MG/DL (70 - 105) 11/25/17 12:20 - Physical Exam Vitals and I&O: Vital Signs Temp 97.7 F 11/25/17 06:21 Pulse 63 11/25/17 12:15 Resp 20 11/25/17 12:15 BP 108/66 11/25/17 06:21 Pulse Ox 96 11/25/17 12:15 Intake & Output 11/24/17 11/25/17 11/25/17 18:59 06:59 18:59 Intake Total 120 Balance 120 Intake: Oral 120 Other: # Voids 3 Weight Source Bedscale Active Medications: Current Medications Acetaminophen (Tylenol) 650 mg PO Q4HR PRN PRN Reason: Mild Pain / Temp above 100 Stop: 01/23/18 17:01 Acetaminophen (Tylenol) 650 mg PO Q4H PRN PRN Reason: Pain Or Fever above 101 Stop: 01/23/18 17:11 Al Hydrox/Mg Hydrox/Simethicone (Maalox) 30 ml PO Q4HR PRN PRN Reason: GI DISTRESS Stop: 01/23/18 17:01 Albuterol/Ipratropium (Duoneb Neb) 3 ml HHN QIDRT [facility] Stop: 01/23/18 18:59 Last Admin: 11/25/17 12:15 Dose: 3 ml Benztropine Mesylate (Cogentin) 0.5 mg PO BID [facility] Stop: 01/24/18 08:59 Last Admin: 11/25/17 09:31 Dose: 0.5 mg Guaifenesin (Robitussin) 200 mg PO Q4HR PRN PRN Reason: Cough or Congestion Stop: 01/23/18 17:11 Haloperidol Decanoate (Haldol Dec) 50 mg IM QMONTH [facility] PRN Reason: Protocol Stop: 02/02/18 09:59 Insulin Aspart (Novolog Insulin Sliding Scale) 2 - 12 units SUBQ ACHS [facility] PRN Reason: Protocol Stop: 01/23/18 20:59 Last Admin: 11/25/17 12:29 Dose: Not Given Lorazepam (Ativan) 0.5 mg PO Q4HR PRN; Protocol PRN Reason: Agitation Stop: 12/24/17 17:01 Magnesium Hydroxide (Milk Of Magnesia) 30 ml PO HS PRN PRN Reason: Constipation Multivitamins/Vitamin C (Theragran) 1 tab PO DAILY [facility] Stop: 01/24/18 08:59 Last Admin: 11/25/17 09:31 Dose: 1 tab Risperidone (Risperdal) 1 mg PO BID [facility] PRN Reason: Protocol Stop: 01/24/18 08:59 Last Admin: 11/25/17 09:31 Dose: 1 mg Zolpidem Tartrate (Ambien) 5 mg PO HS PRN PRN Reason: Insomnia Stop: 01/23/18 17:01 General: alert HEENT: NC/AT, PERRLA Neck: Supple Lungs: CTAB Cardiovascular: RRR, Normal S1, Normal S2, without murmur Neurological: no change Internal Medicine Assmt/Plan - Assessment Assessment: dm2 generalized weakness schizophrenia - Plan Plan: monitor glucose and s/sx of hypoglycemia fall precautions cpm
--- NOTE | 2017-11-25 14:38 | Progress Notes ---
DATE: 11/25/2017 PSYCHIATRIC PROGRESS NOTE SUBJECTIVE: Staff was spoken to. The patient is interviewed. Mood is noted to be irritable. Affect is constricted. The patient is pacing most of the time on the unit. Coping skills are noted to be extremely poor. Sleep and appetite are also noted very poor. The patient has no insight into his illness. Actively responding to internal stimuli. ASSESSMENT: The patient is grossly psychotic and impulsive. PLAN: To continue the patient with the supportive therapy, encouraged the patient to verbalize the concerns rather than to act out. [facility]# [id number]
[2017-11-25 17:09] LABS: GLUCOSE ACCUCHECK NOVA 111 mg/dL (70 - 105)
[2017-11-25 20:57] LABS: GLUCOSE ACCUCHECK NOVA 136 mg/dL (70 - 105)
--- NOTE | 2017-11-25 23:09 | Consultation ---
DATE OF CONSULTATION: 11/25/2017 REQUESTING PHYSICIAN: Hannah Bishop M.D. TYPE OF CONSULTATION: Psychology. HISTORY OF PRESENT ILLNESS: The patient is a 57-year-old -[place] male, who is a resident of [facility]. The following is by review of the medical record and by patient's self report. The patient is being admitted due to acute psychosis and increased agitation. According to record review, the patient has a long history of schizophrenia, chronic paranoid type. The patient is under the care of a psychiatrist at his facility. However, he was unable to be managed on an outpatient basis due to screaming and yelling and becoming destructive by striking out behaviors toward the facility property according to the staff report at his facility. Upon interview, the patient stated that he should not be here and that he needs to go home and be discharged immediately. The patient denied any suicidal ideation, plan or intention. The patient did not answer questions about homicidal ideation. The patient was unable to verbally contract for safety. PAST MEDICAL HISTORY: Please see history and physical by Dr. Partida. PAST PSYCHIATRIC HISTORY: The patient has a long history of schizophrenia, chronic paranoid type and has multiple previous hospitalizations. The patient is under the care of a psychiatrist at the [facility]. SUBSTANCE ABUSE HISTORY: No record available. The patient did not answer this question. CURRENT MEDICATIONS: Please see admission medication reconciliation. PSYCHOSOCIAL HISTORY: The patient is a resident of [facility]. The patient did not answer questions about occupational history or educational history or religion affiliation. The patient did not answer questions about physical or sexual abuse history or any legal issues. MENTAL STATUS EXAMINATION: The patient appears to be his stated age. The patient's attitude is superficially cooperative. Eye contact is poor. Speech is rambling. The patient is not making any sense during the clinical interview and it appears there are loose associations related to his thought process. The patient denied any auditory or visual hallucinations. However, paranoid delusion is present and noted. The patient is having difficulty following the cognitive and behavioral redirection. Impulse control is inadequate. Concentration is impaired. It appears the patient may be responding to internal stimuli. The patient did not participate in the concentration evaluation or the memory assessment. The patient's sensorium is alert and oriented to self only. The patient knows he is in the hospital, but does not understand why he has been admitted. The patient did not participate in the interpretation of proverbs. Insight is impaired. Judgment is impaired. DIAGNOSTIC IMPRESSION: AXIS I: History of schizophrenia, chronic paranoid type with acute exacerbation. AXIS II: Deferred. AXIS III: Please see history and physical by Dr. Partida. PLAN: The patient has been seen by Dr. Bishop for psychiatric evaluation and for the management of the patient's psychotropic medications. The patient will be provided with reality orientation, reality differentiation and reality integration. According to the record, the patient was continued on haloperidol. We will provide limit setting as well as behavioral redirection to encourage the patient to verbalize his concerns rather than act out. We will provide coping strategies for chronic severe mental illness. We will continue to provide supportive therapy with motivational enhancement for the patient to become compliant and stay compliant with all aspects of his care and treatment. According to the record, the patient is being started on a low dose of Risperdal and will be monitored closely. Thank you, Dr. Bishop, for this consult and the opportunity to participate with you in this patient's care. JOB# [id number] YU
[2017-11-26 06:14] LABS: GLUCOSE ACCUCHECK NOVA 91 mg/dL (70 - 105)
[2017-11-26] MEDS: INSULIN ASPART SLIDING SCALE 100 UNITS/ML UNIT SUBQ SCH ×4 (06:35→21:16)
[2017-11-26] MEDS: Albuterol/Ipratropium Neb 3 ML AERS HHN SCH ×4 (07:01→19:15)
[2017-11-26] MEDS: risperiDONE 1 mg/mL 30 mL Bottle PO SCH ×2 (08:37→17:23)
[2017-11-26] MEDS: Multivitamin Tab PO SCH (08:37)
[2017-11-26 11:32] LABS: GLUCOSE ACCUCHECK NOVA 85 mg/dL (70 - 105)
--- NOTE | 2017-11-26 15:00 | Internal Medicine Prog Note ---
Internal Medicine Subjective - Subjective Service Date: 11/26/17 Patient is:: awake Per staff patient has:: tolerating meds Internal Medicine Objective - Results Recent Labs: Laboratory Last Values POC Glucose 85 MG/DL (70 - 105) 11/26/17 11:25 - Physical Exam Vitals and I&O: Vital Signs Temp 98.1 F 11/26/17 14:30 Pulse 81 11/26/17 14:30 Resp 20 11/26/17 14:30 BP 107/61 11/26/17 14:30 Pulse Ox 98 11/26/17 14:30 Intake & Output 11/25/17 11/26/17 11/26/17 18:59 06:59 18:59 Intake Total 900 120 Balance 900 120 Intake: Oral 900 120 Other: # Voids 3 3 # Bowel Movements 1 Active Medications: Current Medications Acetaminophen (Tylenol) 650 mg PO Q4HR PRN PRN Reason: Mild Pain / Temp above 100 Stop: 01/23/18 17:01 Acetaminophen (Tylenol) 650 mg PO Q4H PRN PRN Reason: Pain Or Fever above 101 Stop: 01/23/18 17:11 Last Admin: 11/25/17 20:01 Dose: 650 mg Al Hydrox/Mg Hydrox/Simethicone (Maalox) 30 ml PO Q4HR PRN PRN Reason: GI DISTRESS Stop: 01/23/18 17:01 Albuterol/Ipratropium (Duoneb Neb) 3 ml HHN QIDRT [facility] Stop: 01/23/18 18:59 Last Admin: 11/26/17 14:04 Dose: 3 ml Benztropine Mesylate (Cogentin) 0.5 mg PO BID [facility] Stop: 01/24/18 08:59 Last Admin: 11/26/17 08:37 Dose: 0.5 mg Guaifenesin (Robitussin) 200 mg PO Q4HR PRN PRN Reason: Cough or Congestion Stop: 01/23/18 17:11 Haloperidol Decanoate (Haldol Dec) 50 mg IM QMONTH [facility] PRN Reason: Protocol Stop: 02/02/18 09:59 Insulin Aspart (Novolog Insulin Sliding Scale) 2 - 12 units SUBQ ACHS [facility] PRN Reason: Protocol Stop: 01/23/18 20:59 Last Admin: 11/26/17 11:34 Dose: Not Given Lorazepam (Ativan) 0.5 mg PO Q4HR PRN; Protocol PRN Reason: Agitation Stop: 12/24/17 17:01 Magnesium Hydroxide (Milk Of Magnesia) 30 ml PO HS PRN PRN Reason: Constipation Multivitamins/Vitamin C (Theragran) 1 tab PO DAILY [facility] Stop: 01/24/18 08:59 Last Admin: 11/26/17 08:37 Dose: 1 tab Risperidone (Risperdal) 1 mg PO BID [facility] PRN Reason: Protocol Stop: 01/24/18 08:59 Last Admin: 11/26/17 08:37 Dose: 1 mg Zolpidem Tartrate (Ambien) 5 mg PO HS PRN PRN Reason: Insomnia Stop: 01/23/18 17:01 General: alert HEENT: NC/AT, PERRLA Neck: Supple Lungs: CTAB Cardiovascular: RRR, Normal S1, Normal S2, without murmur Neurological: no change Internal Medicine Assmt/Plan - Assessment Assessment: dm2 generalized weakness schizophrenia - Plan Plan: monitor glucose and s/sx of hypoglycemia fall precautions cpm
[2017-11-26 16:51] LABS: GLUCOSE ACCUCHECK NOVA 87 mg/dL (70 - 105)
--- NOTE | 2017-11-26 20:52 | Progress Notes ---
DATE: 11/26/2017 SUBJECTIVE: Staff was spoken to. The patient is interviewed. Mood is noted to be irritable. Affect is constricted. Insight and judgment is still impaired. Impulse control is poor. The patient is actively responding to internal stimuli. The patient is currently on Haldol Decanoate on a monthly basis. The patient is also placed on Risperdal in view of his acute psychosis. The patient's coping skills at this time are noted to be still poor. The patient is pacing most of the time on the unit. The patient has no insight into his illness. ASSESSMENT: The patient is still grossly psychotic. PLAN: To continue the patient with the current medications. I encouraged the patient to verbalize the concerns rather than to act out. JOB# [id number]
[2017-11-26 21:09] LABS: GLUCOSE ACCUCHECK NOVA 133 mg/dL (70 - 105)
[2017-11-27 06:23] LABS: GLUCOSE ACCUCHECK NOVA 93 mg/dL (70 - 105)
[2017-11-27] MEDS: INSULIN ASPART SLIDING SCALE 100 UNITS/ML UNIT SUBQ SCH ×4 (06:39→21:05)
[2017-11-27] MEDS: Albuterol/Ipratropium Neb 3 ML AERS HHN SCH ×4 (07:19→19:49)
[2017-11-27] MEDS: risperiDONE 1 mg/mL 30 mL Bottle PO SCH ×2 (08:33→17:35)
[2017-11-27] MEDS: Multivitamin Tab PO SCH (08:34)
[2017-11-27 11:57] LABS: GLUCOSE ACCUCHECK NOVA 85 mg/dL (70 - 105)
--- NOTE | 2017-11-27 12:44 | Internal Medicine Prog Note ---
Internal Medicine Subjective - Subjective Service Date: 11/27/17 Patient is:: awake Per staff patient has:: tolerating meds Internal Medicine Objective - Results Recent Labs: Laboratory Last Values POC Glucose 85 MG/DL (70 - 105) 11/27/17 11:54 - Physical Exam Vitals and I&O: Vital Signs Temp 98.1 F 11/26/17 14:30 Pulse 69 11/27/17 12:03 Resp 20 11/27/17 12:03 BP 107/61 11/26/17 14:30 Pulse Ox 97 11/27/17 12:03 Active Medications: Current Medications Acetaminophen (Tylenol) 650 mg PO Q4HR PRN PRN Reason: Mild Pain / Temp above 100 Stop: 01/23/18 17:01 Acetaminophen (Tylenol) 650 mg PO Q4H PRN PRN Reason: Pain Or Fever above 101 Stop: 01/23/18 17:11 Last Admin: 11/25/17 20:01 Dose: 650 mg Al Hydrox/Mg Hydrox/Simethicone (Maalox) 30 ml PO Q4HR PRN PRN Reason: GI DISTRESS Stop: 01/23/18 17:01 Albuterol/Ipratropium (Duoneb Neb) 3 ml HHN QIDRT [facility] Stop: 01/23/18 18:59 Last Admin: 11/27/17 12:03 Dose: 3 ml Benztropine Mesylate (Cogentin) 0.5 mg PO BID [facility] Stop: 01/24/18 08:59 Last Admin: 11/27/17 08:34 Dose: 0.5 mg Guaifenesin (Robitussin) 200 mg PO Q4HR PRN PRN Reason: Cough or Congestion Stop: 01/23/18 17:11 Haloperidol Decanoate (Haldol Dec) 50 mg IM QMONTH [facility] PRN Reason: Protocol Stop: 02/02/18 09:59 Insulin Aspart (Novolog Insulin Sliding Scale) 2 - 12 units SUBQ ACHS [facility] PRN Reason: Protocol Stop: 01/23/18 20:59 Last Admin: 11/27/17 11:57 Dose: Not Given Lorazepam (Ativan) 0.5 mg PO Q4HR PRN; Protocol PRN Reason: Agitation Stop: 12/24/17 17:01 Magnesium Hydroxide (Milk Of Magnesia) 30 ml PO HS PRN PRN Reason: Constipation Multivitamins/Vitamin C (Theragran) 1 tab PO DAILY [facility] Stop: 01/24/18 08:59 Last Admin: 11/27/17 08:34 Dose: 1 tab Risperidone (Risperdal) 1 mg PO BID [facility] PRN Reason: Protocol Stop: 01/24/18 08:59 Last Admin: 11/27/17 08:33 Dose: 1 mg Zolpidem Tartrate (Ambien) 5 mg PO HS PRN PRN Reason: Insomnia Stop: 01/23/18 17:01 General: alert HEENT: NC/AT, PERRLA Neck: Supple Lungs: CTAB Cardiovascular: RRR, Normal S1, Normal S2, without murmur Neurological: no change Internal Medicine Assmt/Plan - Assessment Assessment: dm2 generalized weakness schizophrenia - Plan Plan: monitor glucose and s/sx of hypoglycemia fall precautions cpm
[2017-11-27 17:09] LABS: GLUCOSE ACCUCHECK NOVA 122 mg/dL (70 - 105)
[2017-11-27 20:15] LABS: GLUCOSE ACCUCHECK NOVA 129 mg/dL (70 - 105)
--- NOTE | 2017-11-28 03:20 | Progress Notes ---
DATE: 11/27/2017 PSYCHIATRIC PROGRESS NOTE SUBJECTIVE: Staff was spoken to. The patient is interviewed. Mood is noted to be irritable. Affect is constricted. Coping skills are noted to be still poor. Insight and judgment are noted to be still impaired. The patient has been refusing to take a shower. The patient needs to be redirected and encouraged to comply with the treatment. The patient has no insight into his illness. ASSESSMENT: The patient is still psychotic. PLAN: To continue the patient with the supportive therapy and followup. JOB# [id number]
[2017-11-28 06:41] LABS: GLUCOSE ACCUCHECK NOVA 88 mg/dL (70 - 105)
[2017-11-28] MEDS: INSULIN ASPART SLIDING SCALE 100 UNITS/ML UNIT SUBQ SCH ×4 (06:52→22:05)
[2017-11-28] MEDS: Albuterol/Ipratropium Neb 3 ML AERS HHN SCH ×3 (06:58→23:21)
[2017-11-28] MEDS: risperiDONE 1 mg/mL 30 mL Bottle PO SCH ×2 (09:05→17:05)
[2017-11-28] MEDS: Multivitamin Tab PO SCH (09:05)
[2017-11-28 12:24] LABS: GLUCOSE ACCUCHECK NOVA 78 mg/dL (70 - 105)
--- NOTE | 2017-11-28 13:43 | Internal Medicine Prog Note ---
Internal Medicine Subjective - Subjective Service Date: 11/28/17 Patient seen and examined:: with staff Patient is:: awake Per staff patient has:: tolerating meds Internal Medicine Objective - Results Recent Labs: Laboratory Last Values POC Glucose 78 MG/DL (70 - 105) 11/28/17 12:17 - Physical Exam Vitals and I&O: Vital Signs Temp 97.9 F 11/27/17 20:00 Pulse 71 11/28/17 10:57 Resp 14 11/28/17 10:57 BP 101/56 11/27/17 20:00 Pulse Ox 98 11/28/17 10:57 Intake & Output 11/27/17 11/28/17 11/28/17 18:59 06:59 18:59 Intake Total 1000 120 Balance 1000 120 Intake: Oral 1000 120 Other: # Voids 4 1 # Bowel Movements 1 Active Medications: Current Medications Acetaminophen (Tylenol) 650 mg PO Q4HR PRN PRN Reason: Mild Pain / Temp above 100 Stop: 01/23/18 17:01 Acetaminophen (Tylenol) 650 mg PO Q4H PRN PRN Reason: Pain Or Fever above 101 Stop: 01/23/18 17:11 Last Admin: 11/27/17 21:06 Dose: 650 mg Al Hydrox/Mg Hydrox/Simethicone (Maalox) 30 ml PO Q4HR PRN PRN Reason: GI DISTRESS Stop: 01/23/18 17:01 Albuterol/Ipratropium (Duoneb Neb) 3 ml HHN QIDRT [facility] Stop: 01/23/18 18:59 Last Admin: 11/28/17 10:53 Dose: 3 ml Benztropine Mesylate (Cogentin) 0.5 mg PO BID [facility] Stop: 01/24/18 08:59 Last Admin: 11/28/17 09:05 Dose: 0.5 mg Guaifenesin (Robitussin) 200 mg PO Q4HR PRN PRN Reason: Cough or Congestion Stop: 01/23/18 17:11 Haloperidol Decanoate (Haldol Dec) 50 mg IM QMONTH [facility] PRN Reason: Protocol Stop: 02/02/18 09:59 Insulin Aspart (Novolog Insulin Sliding Scale) 2 - 12 units SUBQ ACHS [facility] PRN Reason: Protocol Stop: 01/23/18 20:59 Last Admin: 11/28/17 12:30 Dose: Not Given Lorazepam (Ativan) 0.5 mg PO Q4HR PRN; Protocol PRN Reason: Agitation Stop: 12/24/17 17:01 Magnesium Hydroxide (Milk Of Magnesia) 30 ml PO HS PRN PRN Reason: Constipation Multivitamins/Vitamin C (Theragran) 1 tab PO DAILY [facility] Stop: 01/24/18 08:59 Last Admin: 11/28/17 09:05 Dose: 1 tab Risperidone (Risperdal) 1 mg PO BID [facility] PRN Reason: Protocol Stop: 01/24/18 08:59 Last Admin: 11/28/17 09:05 Dose: 1 mg Zolpidem Tartrate (Ambien) 5 mg PO HS PRN PRN Reason: Insomnia Stop: 01/23/18 17:01 Last Admin: 11/27/17 21:06 Dose: 5 mg General: alert HEENT: NC/AT, PERRLA Neck: Supple Lungs: CTAB Cardiovascular: RRR, Normal S1, Normal S2, without murmur Neurological: no change Internal Medicine Assmt/Plan - Assessment Assessment: dm2 generalized weakness schizophrenia - Plan Plan: monitor glucose and s/sx of hypoglycemia fall precautions cpm
[2017-11-28 17:04] LABS: GLUCOSE ACCUCHECK NOVA 122 mg/dL (70 - 105)
--- NOTE | 2017-11-28 17:11 | Progress Notes ---
DATE: 11/28/2017 PSYCHIATRIC PROGRESS NOTE SUBJECTIVE: Staff was spoken to. The patient is interviewed. Mood is noted to be irritable. Affect is constricted. Insight and judgment are be still impaired. Impulse control seems to be poor. Coping skills are also noted to be very poor. The patient has no insight into his illness. The patient is still on Haldol and I added the Risperdal to make the patient to be a little bit more amenable for treatment. The patient continues to be irritable and angry. The patient has been testing the limits and the patient is still very paranoid and hence it is decided to increase the dose on the Risperdal to 2 mg twice a day and follow the patient with the supportive therapy. [facility]# [id number]
[2017-11-28 22:04] LABS: GLUCOSE ACCUCHECK NOVA 115 mg/dL (70 - 105)
[2017-11-29] MEDS: Albuterol/Ipratropium Neb 3 ML AERS HHN SCH ×3 (06:43→23:42)
[2017-11-29] MEDS: INSULIN ASPART SLIDING SCALE 100 UNITS/ML UNIT SUBQ SCH ×4 (06:46→20:50)
[2017-11-29 07:04] LABS: GLUCOSE ACCUCHECK NOVA 84 mg/dL (70 - 105)
[2017-11-29] MEDS: Multivitamin Tab PO SCH (08:32)
[2017-11-29] MEDS: risperiDONE 1 mg/mL 30 mL Bottle PO SCH ×2 (08:33→16:43)
[2017-11-29 11:25] LABS: GLUCOSE ACCUCHECK NOVA 130 mg/dL (70 - 105)
--- NOTE | 2017-11-29 12:41 | Internal Medicine Prog Note ---
Internal Medicine Subjective - Subjective Service Date: 11/29/17 Patient is:: awake Per staff patient has:: tolerating meds Internal Medicine Objective - Results Recent Labs: Laboratory Last Values POC Glucose 130 MG/DL (70 - 105) H 11/29/17 11:21 - Physical Exam Vitals and I&O: Vital Signs Temp 97.1 F 11/29/17 06:29 Pulse 74 11/29/17 06:46 Resp 14 11/29/17 06:46 BP 114/60 11/29/17 06:29 Pulse Ox 96 11/29/17 06:46 Intake & Output 11/28/17 11/29/17 11/29/17 18:59 06:59 18:59 Intake Total 1000 120 Balance 1000 120 Intake: Oral 1000 120 Other: # Voids 3 3 # Bowel Movements 1 Active Medications: Current Medications Acetaminophen (Tylenol) 650 mg PO Q4HR PRN PRN Reason: Mild Pain / Temp above 100 Stop: 01/23/18 17:01 Acetaminophen (Tylenol) 650 mg PO Q4H PRN PRN Reason: Pain Or Fever above 101 Stop: 01/23/18 17:11 Last Admin: 11/27/17 21:06 Dose: 650 mg Al Hydrox/Mg Hydrox/Simethicone (Maalox) 30 ml PO Q4HR PRN PRN Reason: GI DISTRESS Stop: 01/23/18 17:01 Albuterol/Ipratropium (Duoneb Neb) 3 ml HHN TID [facility] Stop: 01/27/18 14:59 Last Admin: 11/29/17 06:43 Dose: 3 ml Benztropine Mesylate (Cogentin) 0.5 mg PO BID [facility] Stop: 01/24/18 08:59 Last Admin: 11/29/17 08:32 Dose: 0.5 mg Guaifenesin (Robitussin) 200 mg PO Q4HR PRN PRN Reason: Cough or Congestion Stop: 01/23/18 17:11 Haloperidol Decanoate (Haldol Dec) 50 mg IM QMONTH [facility] PRN Reason: Protocol Stop: 02/02/18 09:59 Insulin Aspart (Novolog Insulin Sliding Scale) 2 - 12 units SUBQ ACHS [facility] PRN Reason: Protocol Stop: 01/23/18 20:59 Last Admin: 11/29/17 11:36 Dose: Not Given Lorazepam (Ativan) 0.5 mg PO Q4HR PRN; Protocol PRN Reason: Agitation Stop: 12/24/17 17:01 Magnesium Hydroxide (Milk Of Magnesia) 30 ml PO HS PRN PRN Reason: Constipation Multivitamins/Vitamin C (Theragran) 1 tab PO DAILY [facility] Stop: 01/24/18 08:59 Last Admin: 11/29/17 08:32 Dose: 1 tab Risperidone (Risperdal) 2 mg PO BID [facility] PRN Reason: Protocol Stop: 01/27/18 16:59 Last Admin: 11/29/17 08:33 Dose: 2 mg Zolpidem Tartrate (Ambien) 5 mg PO HS PRN PRN Reason: Insomnia Stop: 01/23/18 17:01 Last Admin: 11/27/17 21:06 Dose: 5 mg General: alert HEENT: NC/AT, PERRLA Neck: Supple Lungs: CTAB Cardiovascular: RRR, Normal S1, Normal S2, without murmur Neurological: no change Internal Medicine Assmt/Plan - Assessment Assessment: dm2 generalized weakness schizophrenia - Plan Plan: monitor glucose and s/sx of hypoglycemia fall precautions cpm
[2017-11-29 16:18] LABS: GLUCOSE ACCUCHECK NOVA 87 mg/dL (70 - 105)
--- NOTE | 2017-11-29 17:34 | Progress Notes ---
DATE: 11/29/2017 SUBJECTIVE: Staff was spoken to. The patient is interviewed. Mood is noted to be irritable. Affect is constricted. Insight is noted to be still impaired. Impulse control is noted to be poor. Continues to be very paranoid and pacing most of the time on the unit. The patient, however, has been compliant with the medication. The patient's insight and judgment are very much impaired at this time. ASSESSMENT: The patient is still psychotic and deceptive. PLAN: To continue the patient with the supportive therapy and encourage the patient to verbalize the concerns rather than to act out. JOB# [id number]
[2017-11-29 20:03] LABS: GLUCOSE ACCUCHECK NOVA 91 mg/dL (70 - 105)
[2017-11-30 06:21] LABS: GLUCOSE ACCUCHECK NOVA 94 mg/dL (70 - 105)
[2017-11-30] MEDS: INSULIN ASPART SLIDING SCALE 100 UNITS/ML UNIT SUBQ SCH ×4 (06:40→21:14)
[2017-11-30] MEDS: Albuterol/Ipratropium Neb 3 ML AERS HHN SCH ×3 (08:00→22:11)
[2017-11-30] MEDS: Multivitamin Tab PO SCH (08:59)
[2017-11-30] MEDS: risperiDONE 1 mg/mL 30 mL Bottle PO SCH ×2 (08:59→16:37)
[2017-11-30 11:28] LABS: GLUCOSE ACCUCHECK NOVA 86 mg/dL (70 - 105)
--- NOTE | 2017-11-30 13:16 | Internal Medicine Prog Note ---
Internal Medicine Subjective - Subjective Service Date: 11/30/17 Patient is:: awake Per staff patient has:: tolerating meds Internal Medicine Objective - Results Recent Labs: Laboratory Last Values POC Glucose 86 MG/DL (70 - 105) 11/30/17 11:24 - Physical Exam Vitals and I&O: Vital Signs Temp 99 F 11/30/17 05:50 Pulse 75 11/30/17 08:01 Resp 18 11/30/17 11:53 BP 117/73 11/30/17 05:50 Pulse Ox 96 11/30/17 08:01 Intake & Output 11/29/17 11/30/17 11/30/17 18:59 06:59 18:59 Intake Total 1600 120 Balance 1600 120 Intake: Oral 1600 120 Other: # Voids 4 3 # Bowel Movements 0 0 Active Medications: Current Medications Acetaminophen (Tylenol) 650 mg PO Q4HR PRN PRN Reason: Mild Pain / Temp above 100 Stop: 01/23/18 17:01 Acetaminophen (Tylenol) 650 mg PO Q4H PRN PRN Reason: Pain Or Fever above 101 Stop: 01/23/18 17:11 Last Admin: 11/27/17 21:06 Dose: 650 mg Al Hydrox/Mg Hydrox/Simethicone (Maalox) 30 ml PO Q4HR PRN PRN Reason: GI DISTRESS Stop: 01/23/18 17:01 Albuterol/Ipratropium (Duoneb Neb) 3 ml HHN TID [facility] Stop: 01/27/18 14:59 Last Admin: 11/30/17 08:00 Dose: 3 ml Benztropine Mesylate (Cogentin) 0.5 mg PO BID [facility] Stop: 01/24/18 08:59 Last Admin: 11/30/17 08:59 Dose: 0.5 mg Guaifenesin (Robitussin) 200 mg PO Q4HR PRN PRN Reason: Cough or Congestion Stop: 01/23/18 17:11 Haloperidol Decanoate (Haldol Dec) 50 mg IM QMONTH [facility] PRN Reason: Protocol Stop: 02/02/18 09:59 Insulin Aspart (Novolog Insulin Sliding Scale) 2 - 12 units SUBQ ACHS [facility] PRN Reason: Protocol Stop: 01/23/18 20:59 Last Admin: 11/30/17 12:14 Dose: Not Given Lorazepam (Ativan) 0.5 mg PO Q4HR PRN; Protocol PRN Reason: Agitation Stop: 12/24/17 17:01 Last Admin: 11/29/17 16:45 Dose: 0.5 mg Magnesium Hydroxide (Milk Of Magnesia) 30 ml PO HS PRN PRN Reason: Constipation Multivitamins/Vitamin C (Theragran) 1 tab PO DAILY [facility] Stop: 01/24/18 08:59 Last Admin: 11/30/17 08:59 Dose: 1 tab Risperidone (Risperdal) 2 mg PO BID [facility] PRN Reason: Protocol Stop: 01/27/18 16:59 Last Admin: 11/30/17 08:59 Dose: 2 mg Zolpidem Tartrate (Ambien) 5 mg PO HS PRN PRN Reason: Insomnia Stop: 01/23/18 17:01 Last Admin: 11/27/17 21:06 Dose: 5 mg General: alert HEENT: NC/AT, PERRLA Neck: Supple Lungs: CTAB Cardiovascular: RRR, Normal S1, Normal S2, without murmur Neurological: no change Internal Medicine Assmt/Plan - Assessment Assessment: dm2 generalized weakness schizophrenia - Plan Plan: monitor glucose and s/sx of hypoglycemia fall precautions cpm
[2017-11-30 16:20] LABS: GLUCOSE ACCUCHECK NOVA 106 mg/dL (70 - 105)
[2017-11-30 21:37] LABS: GLUCOSE ACCUCHECK NOVA 125 mg/dL (70 - 105)
--- NOTE | 2017-12-01 01:55 | Progress Notes ---
DATE: 11/30/2017 SUBJECTIVE: Staff was spoken to. The patient is interviewed. Mood is irritable. Affect is constricted. Insight and judgment at this time are noted to be still impaired. Impulse control seems to be limited. Continues to be very paranoid and is very intrusive. No side effects to the medications are noted. The patient has no insight into his illness. Coping skills are noted to be still poor. ASSESSMENT: The patient is still impulsive. PLAN: To continue the patient with Risperdal. Encouraged the patient to verbalize the concerns rather than to act out. The patient is not ready to be discharged to a lower level of care in view of his acute psychosis. JOB# [id number]
[2017-12-01 06:15] LABS: GLUCOSE ACCUCHECK NOVA 104 mg/dL (70 - 105)
[2017-12-01] MEDS: INSULIN ASPART SLIDING SCALE 100 UNITS/ML UNIT SUBQ SCH ×4 (06:31→20:13)
[2017-12-01] MEDS: risperiDONE 1 mg/mL 30 mL Bottle PO SCH ×2 (09:43→16:29)
[2017-12-01] MEDS: Multivitamin Tab PO SCH (09:43)
[2017-12-01 11:49] LABS: GLUCOSE ACCUCHECK NOVA 76 mg/dL (70 - 105)
--- NOTE | 2017-12-01 13:13 | Internal Medicine Prog Note ---
Internal Medicine Subjective - Subjective Service Date: 12/01/17 Patient is:: awake Per staff patient has:: tolerating meds Internal Medicine Objective - Results Recent Labs: Laboratory Last Values POC Glucose 76 MG/DL (70 - 105) 12/01/17 11:44 - Physical Exam Vitals and I&O: Vital Signs Temp 98.6 F 12/01/17 06:07 Pulse 70 12/01/17 06:07 Resp 20 12/01/17 06:07 BP 96/62 12/01/17 06:07 Pulse Ox 97 12/01/17 06:07 Intake & Output 11/30/17 12/01/17 12/01/17 18:59 06:59 18:59 Intake Total 1200 240 Balance 1200 240 Intake: Oral 1200 240 Other: # Voids 4 3 # Bowel Movements 1 0 Active Medications: Current Medications Acetaminophen (Tylenol) 650 mg PO Q4H PRN PRN Reason: Pain Or Fever above 101 Stop: 01/23/18 17:11 Last Admin: 11/27/17 21:06 Dose: 650 mg Al Hydrox/Mg Hydrox/Simethicone (Maalox) 30 ml PO Q4HR PRN PRN Reason: GI DISTRESS Stop: 01/23/18 17:01 Albuterol/Ipratropium (Duoneb Neb) 3 ml HHN TIDRT [facility] Stop: 01/30/18 14:59 Benztropine Mesylate (Cogentin) 0.5 mg PO BID [facility] Stop: 01/24/18 08:59 Last Admin: 12/01/17 09:43 Dose: 0.5 mg Guaifenesin (Robitussin) 200 mg PO Q4HR PRN PRN Reason: Cough or Congestion Stop: 01/23/18 17:11 Haloperidol Decanoate (Haldol Dec) 50 mg IM QMONTH [facility] PRN Reason: Protocol Stop: 02/02/18 09:59 Insulin Aspart (Novolog Insulin Sliding Scale) 2 - 12 units SUBQ ACHS [facility] PRN Reason: Protocol Stop: 01/23/18 20:59 Last Admin: 12/01/17 11:51 Dose: Not Given Lorazepam (Ativan) 0.5 mg PO Q4HR PRN; Protocol PRN Reason: Agitation Stop: 12/24/17 17:01 Last Admin: 12/01/17 13:03 Dose: 0.5 mg Magnesium Hydroxide (Milk Of Magnesia) 30 ml PO HS PRN PRN Reason: Constipation Multivitamins/Vitamin C (Theragran) 1 tab PO DAILY [facility] Stop: 01/24/18 08:59 Last Admin: 12/01/17 09:43 Dose: 1 tab Risperidone (Risperdal) 2 mg PO BID [facility] PRN Reason: Protocol Stop: 01/27/18 16:59 Last Admin: 12/01/17 09:43 Dose: 2 mg Zolpidem Tartrate (Ambien) 5 mg PO HS PRN PRN Reason: Insomnia Stop: 01/23/18 17:01 Last Admin: 11/27/17 21:06 Dose: 5 mg General: alert HEENT: NC/AT, PERRLA Neck: Supple Lungs: CTAB Cardiovascular: RRR, Normal S1, Normal S2, without murmur Neurological: no change Internal Medicine Assmt/Plan - Assessment Assessment: dm2 generalized weakness schizophrenia - Plan Plan: monitor glucose and s/sx of hypoglycemia fall precautions cpm
[2017-12-01] MEDS: Albuterol/Ipratropium Neb 3 ML AERS HHN SCH ×2 (15:45→22:16)
[2017-12-01 16:20] LABS: GLUCOSE ACCUCHECK NOVA 109 mg/dL (70 - 105)
[2017-12-01 19:40] LABS: GLUCOSE ACCUCHECK NOVA 99 mg/dL (70 - 105)
--- NOTE | 2017-12-01 20:41 | Progress Notes ---
DATE: 12/01/2017 SUBJECTIVE: Staff was spoken to. The patient is interviewed. Mood is noted to be irritable. Affect is constricted. Insight and judgment at this time are noted to be still impaired. Impulse control is noted to be limited. Coping skills are noted to be limited. The patient is still very paranoid. The patient's Risperdal has been increased to 2 mg twice a day. The patient has been able to tolerate the medications. No side effects to medications are noted. The patient, however, has been accusing people of doing things behind his back and is not ready to be discharged to a lower level of care. JOB# [id number]
[2017-12-02 05:50] LABS: GLUCOSE ACCUCHECK NOVA 84 mg/dL (70 - 105)
[2017-12-02] MEDS: INSULIN ASPART SLIDING SCALE 100 UNITS/ML UNIT SUBQ SCH ×2 (06:44→20:23)
[2017-12-02] MEDS: Albuterol/Ipratropium Neb 3 ML AERS HHN SCH ×3 (07:18→23:19)
[2017-12-02] MEDS: Multivitamin Tab PO SCH (08:21)
[2017-12-02] MEDS: risperiDONE 1 mg/mL 30 mL Bottle PO SCH ×2 (10:00→16:36)
[2017-12-02 11:22] LABS: GLUCOSE ACCUCHECK NOVA 76 mg/dL (70 - 105)
--- NOTE | 2017-12-02 15:02 | Internal Medicine Prog Note ---
Internal Medicine Subjective - Subjective Service Date: 12/02/17 Patient is:: awake Per staff patient has:: tolerating meds Internal Medicine Objective - Results Recent Labs: Laboratory Last Values POC Glucose 76 MG/DL (70 - 105) 12/02/17 11:18 - Physical Exam Vitals and I&O: Vital Signs Temp 97.9 F 12/02/17 06:02 Pulse 72 12/02/17 14:23 Resp 18 12/02/17 14:23 BP 98/67 12/02/17 06:02 Pulse Ox 99 12/02/17 14:23 Intake & Output 12/01/17 12/02/17 12/02/17 18:59 06:59 18:59 Intake Total 1200 360 Balance 1200 360 Intake: Oral 1200 360 Other: # Voids 3 1 # Bowel Movements 1 1 Active Medications: Current Medications Acetaminophen (Tylenol) 650 mg PO Q4H PRN PRN Reason: Pain Or Fever above 101 Stop: 01/23/18 17:11 Last Admin: 11/27/17 21:06 Dose: 650 mg Al Hydrox/Mg Hydrox/Simethicone (Maalox) 30 ml PO Q4HR PRN PRN Reason: GI DISTRESS Stop: 01/23/18 17:01 Albuterol/Ipratropium (Duoneb Neb) 3 ml HHN TIDRT [facility] Stop: 01/30/18 14:59 Last Admin: 12/02/17 14:21 Dose: 3 ml Benztropine Mesylate (Cogentin) 0.5 mg PO BID [facility] Stop: 01/24/18 08:59 Last Admin: 12/02/17 08:21 Dose: 0.5 mg Guaifenesin (Robitussin) 200 mg PO Q4HR PRN PRN Reason: Cough or Congestion Stop: 01/23/18 17:11 Haloperidol Decanoate (Haldol Dec) 50 mg IM QMONTH [facility] PRN Reason: Protocol Stop: 02/02/18 09:59 Insulin Aspart (Novolog Insulin Sliding Scale) 2 - 12 units SUBQ ACHS [facility] PRN Reason: Protocol Stop: 01/23/18 20:59 Last Admin: 12/02/17 06:44 Dose: Not Given Lorazepam (Ativan) 0.5 mg PO Q4HR PRN; Protocol PRN Reason: Agitation Stop: 12/24/17 17:01 Last Admin: 12/01/17 13:03 Dose: 0.5 mg Magnesium Hydroxide (Milk Of Magnesia) 30 ml PO HS PRN PRN Reason: Constipation Multivitamins/Vitamin C (Theragran) 1 tab PO DAILY [facility] Stop: 01/24/18 08:59 Last Admin: 12/02/17 08:21 Dose: 1 tab Risperidone (Risperdal) 2 mg PO BID [facility] PRN Reason: Protocol Stop: 01/27/18 16:59 Last Admin: 12/02/17 10:00 Dose: 2 mg Zolpidem Tartrate (Ambien) 5 mg PO HS PRN PRN Reason: Insomnia Stop: 01/23/18 17:01 Last Admin: 11/27/17 21:06 Dose: 5 mg General: alert HEENT: NC/AT, PERRLA Neck: Supple Lungs: CTAB Cardiovascular: RRR, Normal S1, Normal S2, without murmur Neurological: no change Internal Medicine Assmt/Plan - Assessment Assessment: dm2 generalized weakness schizophrenia - Plan Plan: monitor glucose and s/sx of hypoglycemia fall precautions cpm Nutritional Asmnt/Malnutr-PDOC - Dietary Evaluation Malnutrition Findings (Please click <Entered> for more info): Nutritional Asmnt/Malnutrition Start: 12/01/17 14: 08 Text: Status: Complete Freq: Document 12/01/17 14:08 GEOFFREY (Rec: 12/01/17 14:26 GEOFFREY [id number]) Nutritional Asmnt/Malnutrition Patient General Information Nutritional Screening Low Risk Diagnosis psychosis Pertinent Medical Hx/Surgical Hx DM, schizophrenia, anxiety, psychosis, I&D of L side of neck Subjective Information Pt seen smoking in patio at time of visit. Per [employer], pt eats very well, no nutrition related concern. Per EMR, PO intake mostly 100%. Current Diet Order/ Nutrition Support regular Pertinent Medications novolog insulin, theragran Pertinent Labs 11/29-12/01 POC 84-130 Nutritional Hx/Data Height 5 ft 6 in Height (Calculated Centimeters) 167.6 Current Weight (lbs) 131 lb Weight (Calculated Kilograms) 59.4 Weight (Calculated Grams) 00473.6 [place] Body Weight 84-130 Body Mass Index (BMI) 21.1 Weight Status Approriate GI Symptoms GI Symptoms None Last BM 11/30 Difficult in: None Skin Integrity/Comment: intact Current %PO Good (75-100%) Estimated Nutritional Goals BEE in Kcals: Using Current wt Calories/Kcals/Kg 25-30 Kcals Calculated 5034-8842 Protein: Using Current wt Protein g/k-1.2 Protein Calculated 60-72 Fluid: ml 1500-1800ml (1ml/kcal) Nutritional Problem No current Nutrition Prob Problem N/A Malnutrition Alert Protein-Calorie Malnutrition N/A Is there a minimum of two criteria No selected? Query Text:Check all the applicable criteria. A minimum of two criteria are recommended for diagnosis of either severe or non-severe malnutrition. Intervention/Recommendation Comments 1. Continue with regular diet as ordered. 2. Monitor PO intake, wt, labs and skin integrity 3. F/U as low risk in 7 days, 12/08 Expected Outcomes/Goals Expected Outcomes/Goals 1. PO intake continue to meet at least 75% of nutritional needs. 2. Wt stability, skin to remain intact, labs WNL.
--- NOTE | 2017-12-03 04:43 | Progress Notes ---
DATE: 12/02/2017 SUBJECTIVE: Staff was spoken to. The patient is interviewed. Mood is noted to be irritable. Affect is constricted. The patient is paranoid. The patient is still responding to internal stimuli. The patient has been having difficult time to cope with the stress. The patient is currently on Risperdal and has been able to tolerate the medications. No side effects are noted from the Risperdal. ASSESSMENT: The patient is still psychotic. PLAN: To continue the patient with the supportive therapy and followup. JOB# [id number]
[2017-12-03] MEDS: INSULIN ASPART SLIDING SCALE 100 UNITS/ML UNIT SUBQ SCH ×5 (06:35→20:08)
[2017-12-03] MEDS: Albuterol/Ipratropium Neb 3 ML AERS HHN SCH ×3 (07:41→23:51)
[2017-12-03] MEDS: risperiDONE 1 mg/mL 30 mL Bottle PO SCH ×2 (08:39→16:22)
[2017-12-03] MEDS: Multivitamin Tab PO SCH (08:40)
[2017-12-03] MEDS ORDERED: Haloperidol Lactate 5 mg/mL 1mL Vial IM ONE (12:30)
[2017-12-03] MEDS ORDERED: Haloperidol Lactate 5 mg/mL 1mL Vial ONE (12:31)
--- NOTE | 2017-12-03 13:08 | Internal Medicine Prog Note ---
Internal Medicine Subjective - Subjective Service Date: 12/03/17 Patient is:: awake Per staff patient has:: tolerating meds Internal Medicine Objective - Results Recent Labs: Laboratory Last Values POC Glucose 76 MG/DL (70 - 105) 12/02/17 11:18 - Physical Exam Vitals and I&O: Vital Signs Temp 98.2 F 12/03/17 06:51 Pulse 71 12/03/17 07:42 Resp 17 12/03/17 07:42 BP 120/63 12/03/17 06:51 Pulse Ox 98 12/03/17 07:42 Intake & Output 12/02/17 12/03/17 12/03/17 18:59 06:59 18:59 Intake Total 1200 120 Balance 1200 120 Intake: Oral 1200 120 Other: # Voids 3 2 Active Medications: Current Medications Acetaminophen (Tylenol) 650 mg PO Q4H PRN PRN Reason: Pain Or Fever above 101 Stop: 01/23/18 17:11 Last Admin: 11/27/17 21:06 Dose: 650 mg Al Hydrox/Mg Hydrox/Simethicone (Maalox) 30 ml PO Q4HR PRN PRN Reason: GI DISTRESS Stop: 01/23/18 17:01 Albuterol/Ipratropium (Duoneb Neb) 3 ml HHN TIDRT [facility] Stop: 01/30/18 14:59 Last Admin: 12/03/17 07:41 Dose: 3 ml Benztropine Mesylate (Cogentin) 0.5 mg PO BID [facility] Stop: 01/24/18 08:59 Last Admin: 12/03/17 08:40 Dose: 0.5 mg Guaifenesin (Robitussin) 200 mg PO Q4HR PRN PRN Reason: Cough or Congestion Stop: 01/23/18 17:11 Haloperidol Decanoate (Haldol Dec) 50 mg IM QMONTH [facility] PRN Reason: Protocol Stop: 02/02/18 09:59 Insulin Aspart (Novolog Insulin Sliding Scale) 2 - 12 units SUBQ ACHS [facility] PRN Reason: Protocol Stop: 01/23/18 20:59 Last Admin: 12/03/17 11:35 Dose: Not Given Lorazepam (Ativan) 0.5 mg PO Q4HR PRN; Protocol PRN Reason: Agitation Stop: 12/24/17 17:01 Last Admin: 12/02/17 20:19 Dose: 0.5 mg Magnesium Hydroxide (Milk Of Magnesia) 30 ml PO HS PRN PRN Reason: Constipation Multivitamins/Vitamin C (Theragran) 1 tab PO DAILY [facility] Stop: 01/24/18 08:59 Last Admin: 12/03/17 08:40 Dose: 1 tab Risperidone (Risperdal) 2 mg PO BID [facility] PRN Reason: Protocol Stop: 01/27/18 16:59 Last Admin: 12/03/17 08:39 Dose: 2 mg Zolpidem Tartrate (Ambien) 5 mg PO HS PRN PRN Reason: Insomnia Stop: 01/23/18 17:01 Last Admin: 11/27/17 21:06 Dose: 5 mg General: alert HEENT: NC/AT, PERRLA Neck: Supple Lungs: CTAB Cardiovascular: RRR, Normal S1, Normal S2, without murmur Neurological: no change Internal Medicine Assmt/Plan - Assessment Assessment: dm2 generalized weakness schizophrenia - Plan Plan: monitor glucose and s/sx of hypoglycemia fall precautions cpm Nutritional Asmnt/Malnutr-PDOC - Dietary Evaluation Malnutrition Findings (Please click <Entered> for more info): Nutritional Asmnt/Malnutrition Start: 12/01/17 14: 08 Text: Status: Complete Freq: Document 12/01/17 14:08 MANJINDER (Rec: 12/01/17 14:26 GEOFFREY [id number]) Nutritional Asmnt/Malnutrition Patient General Information Nutritional Screening Low Risk Diagnosis psychosis Pertinent Medical Hx/Surgical Hx DM, schizophrenia, anxiety, psychosis, I&D of L side of neck Subjective Information Pt seen smoking in patio at time of visit. Per [employer], pt eats very well, no nutrition related concern. Per EMR, PO intake mostly 100%. Current Diet Order/ Nutrition Support regular Pertinent Medications novolog insulin, theragran Pertinent Labs 11/29-12/01 POC 84-130 Nutritional Hx/Data Height 5 ft 6 in Height (Calculated Centimeters) 167.6 Current Weight (lbs) 131 lb Weight (Calculated Kilograms) 59.4 Weight (Calculated Grams) 27497.6 [place] Body Weight 84-130 Body Mass Index (BMI) 21.1 Weight Status Approriate GI Symptoms GI Symptoms None Last BM 11/30 Difficult in: None Skin Integrity/Comment: intact Current %PO Good (75-100%) Estimated Nutritional Goals BEE in Kcals: Using Current wt Calories/Kcals/Kg 25-30 Kcals Calculated 1857-6196 Protein: Using Current wt Protein g/k-1.2 Protein Calculated 60-72 Fluid: ml 1500-1800ml (1ml/kcal) Nutritional Problem No current Nutrition Prob Problem N/A Malnutrition Alert Protein-Calorie Malnutrition N/A Is there a minimum of two criteria No selected? Query Text:Check all the applicable criteria. A minimum of two criteria are recommended for diagnosis of either severe or non-severe malnutrition. Intervention/Recommendation Comments 1. Continue with regular diet as ordered. 2. Monitor PO intake, wt, labs and skin integrity 3. F/U as low risk in 7 days, 12/08 Expected Outcomes/Goals Expected Outcomes/Goals 1. PO intake continue to meet at least 75% of nutritional needs. 2. Wt stability, skin to remain intact, labs WNL.
--- NOTE | 2017-12-03 23:30 | Progress Notes ---
DATE: 12/03/2017 SUBJECTIVE: Staff was spoken to. The patient is interviewed. Mood is noted to be anxious. Affect is constricted. The patient has paranoid delusions, but denies any command hallucinations. The patient's insight and judgment are noted to be still impaired. Impulse control seems to be poor. Coping skills are noted to be very poor. The patient has been having difficult time to cope with the stress. No side effects to the medications are noted. The patient is pacing on the unit. The patient is currently on Risperdal and has been able to tolerate the medication. ASSESSMENT: The patient's impulsivity is improving. PLAN: To continue the patient with the supportive therapy. We encouraged the patient to verbalize his concerns rather than to act out. [facility]# [id number]
[2017-12-04] MEDS: INSULIN ASPART SLIDING SCALE 100 UNITS/ML UNIT SUBQ SCH ×4 (06:55→20:25)
[2017-12-04] MEDS: Albuterol/Ipratropium Neb 3 ML AERS HHN SCH ×3 (07:42→23:59)
[2017-12-04] MEDS: Multivitamin Tab PO SCH (08:56)
[2017-12-04] MEDS: risperiDONE 1 mg/mL 30 mL Bottle PO SCH ×2 (09:02→16:26)
--- NOTE | 2017-12-04 13:32 | Internal Medicine Prog Note ---
Internal Medicine Subjective - Subjective Service Date: 12/04/17 Patient is:: awake Per staff patient has:: tolerating meds Internal Medicine Objective - Results Recent Labs: Laboratory Last Values POC Glucose 76 MG/DL (70 - 105) 12/02/17 11:18 - Physical Exam Vitals and I&O: Vital Signs Temp 98.4 F 12/04/17 07:02 Pulse 74 12/04/17 07:42 Resp 18 12/04/17 07:42 BP 120/65 12/04/17 07:02 Pulse Ox 97 12/04/17 07:42 Intake & Output 12/03/17 12/04/17 12/04/17 18:59 06:59 18:59 Intake Total 1800 240 Balance 1800 240 Intake: Oral 1800 240 Other: # Voids 4 1 # Bowel Movements 0 1 Active Medications: Current Medications Acetaminophen (Tylenol) 650 mg PO Q4H PRN PRN Reason: Pain Or Fever above 101 Stop: 01/23/18 17:11 Last Admin: 11/27/17 21:06 Dose: 650 mg Al Hydrox/Mg Hydrox/Simethicone (Maalox) 30 ml PO Q4HR PRN PRN Reason: GI DISTRESS Stop: 01/23/18 17:01 Albuterol/Ipratropium (Duoneb Neb) 3 ml HHN TIDRT [facility] Stop: 01/30/18 14:59 Last Admin: 12/03/17 23:51 Dose: 3 ml Benztropine Mesylate (Cogentin) 0.5 mg PO BID [facility] Stop: 01/24/18 08:59 Last Admin: 12/04/17 08:56 Dose: 0.5 mg Guaifenesin (Robitussin) 200 mg PO Q4HR PRN PRN Reason: Cough or Congestion Stop: 01/23/18 17:11 Haloperidol Decanoate (Haldol Dec) 50 mg IM QMONTH [facility] PRN Reason: Protocol Stop: 02/02/18 09:59 Insulin Aspart (Novolog Insulin Sliding Scale) 2 - 12 units SUBQ ACHS [facility] PRN Reason: Protocol Stop: 01/23/18 20:59 Last Admin: 12/04/17 12:07 Dose: Not Given Lorazepam (Ativan) 0.5 mg PO Q4HR PRN; Protocol PRN Reason: Agitation Stop: 12/24/17 17:01 Last Admin: 12/02/17 20:19 Dose: 0.5 mg Magnesium Hydroxide (Milk Of Magnesia) 30 ml PO HS PRN PRN Reason: Constipation Multivitamins/Vitamin C (Theragran) 1 tab PO DAILY [facility] Stop: 01/24/18 08:59 Last Admin: 12/04/17 08:56 Dose: 1 tab Risperidone (Risperdal) 2 mg PO BID [facility] PRN Reason: Protocol Stop: 01/27/18 16:59 Last Admin: 12/04/17 09:02 Dose: 2 mg Zolpidem Tartrate (Ambien) 5 mg PO HS PRN PRN Reason: Insomnia Stop: 01/23/18 17:01 Last Admin: 12/03/17 21:09 Dose: 5 mg General: alert HEENT: NC/AT, PERRLA Neck: Supple Lungs: CTAB Cardiovascular: RRR, Normal S1, Normal S2, without murmur Neurological: no change Internal Medicine Assmt/Plan - Assessment Assessment: dm2 generalized weakness schizophrenia - Plan Plan: monitor glucose and s/sx of hypoglycemia fall precautions cpm Nutritional Asmnt/Malnutr-PDOC - Dietary Evaluation Malnutrition Findings (Please click <Entered> for more info): Nutritional Asmnt/Malnutrition Start: 12/01/17 14: 08 Text: Status: Complete Freq: Document 12/01/17 14:08 GEOFFREY (Rec: 12/01/17 14:26 GEOFFREY [email or web address]) Nutritional Asmnt/Malnutrition Patient General Information Nutritional Screening Low Risk Diagnosis psychosis Pertinent Medical Hx/Surgical Hx DM, schizophrenia, anxiety, psychosis, I&D of L side of neck Subjective Information Pt seen smoking in patio at time of visit. Per POLITICAL ADVISOR, pt eats very well, no nutrition related concern. Per EMR, PO intake mostly 100%. Current Diet Order/ Nutrition Support regular Pertinent Medications novolog insulin, theragran Pertinent Labs 11/29-12/01 POC 84-130 Nutritional Hx/Data Height 5 ft 6 in Height (Calculated Centimeters) 167.6 Current Weight (lbs) 131 lb Weight (Calculated Kilograms) 59.4 Weight (Calculated Grams) 39670.6 [place] Body Weight 84-130 Body Mass Index (BMI) 21.1 Weight Status Approriate GI Symptoms GI Symptoms None Last BM 11/30 Difficult in: None Skin Integrity/Comment: intact Current %PO Good (75-100%) Estimated Nutritional Goals BEE in Kcals: Using Current wt Calories/Kcals/Kg 25-30 Kcals Calculated 4417-0528 Protein: Using Current wt Protein g/k-1.2 Protein Calculated 60-72 Fluid: ml 1500-1800ml (1ml/kcal) Nutritional Problem No current Nutrition Prob Problem N/A Malnutrition Alert Protein-Calorie Malnutrition N/A Is there a minimum of two criteria No selected? Query Text:Check all the applicable criteria. A minimum of two criteria are recommended for diagnosis of either severe or non-severe malnutrition. Intervention/Recommendation Comments 1. Continue with regular diet as ordered. 2. Monitor PO intake, wt, labs and skin integrity 3. F/U as low risk in 7 days, 12/08 Expected Outcomes/Goals Expected Outcomes/Goals 1. PO intake continue to meet at least 75% of nutritional needs. 2. Wt stability, skin to remain intact, labs WNL.
[2017-12-04 15:08] LABS: GLUCOSE ACCUCHECK NOVA 68 mg/dL (70 - 105)
[2017-12-04 15:08] LABS: GLUCOSE ACCUCHECK NOVA 94 mg/dL (70 - 105)
[2017-12-04 15:08] LABS: GLUCOSE ACCUCHECK NOVA 82 mg/dL (70 - 105)
[2017-12-04 15:08] LABS: GLUCOSE ACCUCHECK NOVA 95 mg/dL (70 - 105)
[2017-12-04 15:08] LABS: GLUCOSE ACCUCHECK NOVA 97 mg/dL (70 - 105)
[2017-12-04 15:08] LABS: GLUCOSE ACCUCHECK NOVA 89 mg/dL (70 - 105)
[2017-12-04 15:08] LABS: GLUCOSE ACCUCHECK NOVA 73 mg/dL (70 - 105)
[2017-12-04 16:52] LABS: GLUCOSE ACCUCHECK NOVA 113 mg/dL (70 - 105)
--- NOTE | 2017-12-04 19:09 | Progress Notes ---
DATE: 12/04/2017 SUBJECTIVE: Staff was spoken to. Patient is interviewed. Mood is irritable. Affect is constricted. The patient continues to be very paranoid, in view of his acute psychosis and it is decided to give the patient Haldol Decanoate 50 mg per mL. The patient's coping skills at this time are noted to be very poor. The patient needs to be redirected constantly. ASSESSMENT: The patient is still psychotic and impulsive. PLAN: To continue the patient with the current medications and follow up with the supportive therapy. JOB# [id number]
[2017-12-04 20:13] LABS: GLUCOSE ACCUCHECK NOVA 109 mg/dL (70 - 105)
[2017-12-05 06:39] LABS: GLUCOSE ACCUCHECK NOVA 94 mg/dL (70 - 105)
[2017-12-05] MEDS: Albuterol/Ipratropium Neb 3 ML AERS HHN SCH ×3 (06:47→22:03)
[2017-12-05] MEDS: INSULIN ASPART SLIDING SCALE 100 UNITS/ML UNIT SUBQ SCH ×4 (06:52→20:37)
[2017-12-05] MEDS: risperiDONE 1 mg/mL 30 mL Bottle PO SCH ×2 (09:01→16:41)
[2017-12-05] MEDS: Multivitamin Tab PO SCH (09:02)
[2017-12-05 11:31] LABS: GLUCOSE ACCUCHECK NOVA 89 mg/dL (70 - 105)
--- NOTE | 2017-12-05 18:30 | Progress Notes ---
DATE: 12/05/2017 Staff was spoken to. The patient is interviewed. Mood is noted to be irritable. Coping skills are noted to be improving. The patient has paranoia, but denies any command hallucinations. Insight and judgment are noted to be improving at this time. Impulse control seems to be fair. No side effects to the Haldol are noted. The patient is being closely monitored. If the patient continues to be stabilizing, plan to discharge the patient to [facility] for further followup. JOB# [id number]
--- NOTE | 2017-12-05 18:39 | Internal Medicine Prog Note ---
Internal Medicine Subjective - Subjective Patient seen and examined:: with staff, chart reviewed Patient is:: awake, verbal, interactive Per staff patient has:: no adverse event, eating well, tolerating meds Internal Medicine Objective - Results Recent Labs: Laboratory Last Values POC Glucose 89 MG/DL (70 - 105) 12/05/17 11:20 - Physical Exam Vitals and I&O: Vital Signs Temp 97.5 F 12/05/17 16:51 Pulse 86 12/05/17 16:51 Resp 20 12/05/17 16:51 BP 108/61 12/05/17 16:51 Pulse Ox 97 12/05/17 16:51 Intake & Output 12/04/17 12/05/17 12/05/17 18:59 06:59 18:59 Intake Total 1100 240 Balance 1100 240 Intake: Oral 1100 240 Other: # Voids 4 1 # Bowel Movements 0 Active Medications: Current Medications Acetaminophen (Tylenol) 650 mg PO Q4H PRN PRN Reason: Pain Or Fever above 101 Stop: 01/23/18 17:11 Last Admin: 11/27/17 21:06 Dose: 650 mg Al Hydrox/Mg Hydrox/Simethicone (Maalox) 30 ml PO Q4HR PRN PRN Reason: GI DISTRESS Stop: 01/23/18 17:01 Albuterol/Ipratropium (Duoneb Neb) 3 ml HHN TIDRT [facility] Stop: 01/30/18 14:59 Last Admin: 12/05/17 13:39 Dose: 3 ml Benztropine Mesylate (Cogentin) 0.5 mg PO BID [facility] Stop: 01/24/18 08:59 Last Admin: 12/05/17 16:37 Dose: 0.5 mg Guaifenesin (Robitussin) 200 mg PO Q4HR PRN PRN Reason: Cough or Congestion Stop: 01/23/18 17:11 Haloperidol Decanoate (Haldol Dec) 50 mg IM QMONTH [facility] PRN Reason: Protocol Stop: 02/02/18 09:59 Last Admin: 12/04/17 18:36 Dose: 50 mg Insulin Aspart (Novolog Insulin Sliding Scale) 2 - 12 units SUBQ ACHS [facility] PRN Reason: Protocol Stop: 01/23/18 20:59 Last Admin: 12/05/17 16:36 Dose: Not Given Lorazepam (Ativan) 0.5 mg PO Q4HR PRN; Protocol PRN Reason: Agitation Stop: 12/24/17 17:01 Last Admin: 12/04/17 20:26 Dose: 0.5 mg Magnesium Hydroxide (Milk Of Magnesia) 30 ml PO HS PRN PRN Reason: Constipation Multivitamins/Vitamin C (Theragran) 1 tab PO DAILY [facility] Stop: 01/24/18 08:59 Last Admin: 12/05/17 09:02 Dose: 1 tab Risperidone (Risperdal) 2 mg PO BID [facility] PRN Reason: Protocol Stop: 01/27/18 16:59 Last Admin: 12/05/17 16:41 Dose: 2 mg Zolpidem Tartrate (Ambien) 5 mg PO HS PRN PRN Reason: Insomnia Stop: 01/23/18 17:01 Last Admin: 12/04/17 20:26 Dose: 5 mg General: alert HEENT: NC/AT, PERRLA Neck: Supple Lungs: CTAB Cardiovascular: RRR, Normal S1, Normal S2, without murmur Abdomen: soft, non-tender, non-distended, positive bowel sound Extremities: excoriation Neurological: no change Internal Medicine Assmt/Plan - Assessment Assessment: - Assessment Assessment: dm2 generalized weakness schizophrenia - Plan Plan: monitor glucose and s/sx of hypoglycemia fall precautions cpm - Plan Plan: ada diet dw rn Nutritional Asmnt/Malnutr-PDOC - Dietary Evaluation Malnutrition Findings (Please click <Entered> for more info): Nutritional Asmnt/Malnutrition Start: 12/01/17 14: 08 Text: Status: Complete Freq: Document 12/01/17 14:08 GEOFFREY (Rec: 12/01/17 14:26 GEOFFREY [email or web address]) Nutritional Asmnt/Malnutrition Patient General Information Nutritional Screening Low Risk Diagnosis psychosis Pertinent Medical Hx/Surgical Hx DM, schizophrenia, anxiety, psychosis, I&D of L side of neck Subjective Information Pt seen smoking in patio at time of visit. 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 Per EMR, PO intake mostly 100%. Current Diet Order/ Nutrition Support regular Pertinent Medications novolog insulin, theragran Pertinent Labs 11/29-12/01 POC 84-130 Nutritional Hx/Data Height 1.68 m Height (Calculated Centimeters) 167.6 Current Weight (lbs) 59.421 kg Weight (Calculated Kilograms) 59.4 Weight (Calculated Grams) 02921.6 [place] Body Weight 84-130 Body Mass Index (BMI) 21.1 Weight Status Approriate GI Symptoms GI Symptoms None Last BM 11/30 Difficult in: None Skin Integrity/Comment: intact Current %PO Good (75-100%) Estimated Nutritional Goals BEE in Kcals: Using Current wt Calories/Kcals/Kg 25-30 Kcals Calculated 1028-7728 Protein: Using Current wt Protein g/k-1.2 Protein Calculated 60-72 Fluid: ml 1500-1800ml (1ml/kcal) Nutritional Problem No current Nutrition Prob Problem N/A Malnutrition Alert Protein-Calorie Malnutrition N/A Is there a minimum of two criteria No selected? Query Text:Check all the applicable criteria. A minimum of two criteria are recommended for diagnosis of either severe or non-severe malnutrition. Intervention/Recommendation Comments 1. Continue with regular diet as ordered. 2. Monitor PO intake, wt, labs and skin integrity 3. F/U as low risk in 7 days, 12/08 Expected Outcomes/Goals Expected Outcomes/Goals 1. PO intake continue to meet at least 75% of nutritional needs. 2. Wt stability, skin to remain intact, labs WNL.
[2017-12-05 20:09] LABS: GLUCOSE ACCUCHECK NOVA 104 mg/dL (70 - 105)
[2017-12-06 06:29] LABS: GLUCOSE ACCUCHECK NOVA 88 mg/dL (70 - 105)
[2017-12-06] MEDS: Albuterol/Ipratropium Neb 3 ML AERS HHN SCH ×3 (06:39→19:29)
[2017-12-06] MEDS: INSULIN ASPART SLIDING SCALE 100 UNITS/ML UNIT SUBQ SCH ×4 (06:40→21:21)
[2017-12-06] MEDS: Multivitamin Tab PO SCH (09:00)
[2017-12-06] MEDS: risperiDONE 1 mg/mL 30 mL Bottle PO SCH ×2 (09:01→17:12)
[2017-12-06 11:39] LABS: GLUCOSE ACCUCHECK NOVA 95 mg/dL (70 - 105)
--- NOTE | 2017-12-06 13:51 | Internal Medicine Prog Note ---
Internal Medicine Subjective - Subjective Patient seen and examined:: with staff, chart reviewed Patient is:: awake, verbal, interactive Per staff patient has:: no adverse event, eating well, tolerating meds Internal Medicine Objective - Results Recent Labs: Laboratory Last Values POC Glucose 95 MG/DL (70 - 105) 12/06/17 11:31 - Physical Exam Vitals and I&O: Vital Signs Temp 97.9 F 12/06/17 06:31 Pulse 81 12/06/17 13:17 Resp 14 12/06/17 13:17 BP 111/71 12/06/17 06:31 Pulse Ox 97 12/06/17 13:17 Intake & Output 12/05/17 12/06/17 12/06/17 18:59 06:59 18:59 Intake Total 480 Balance 480 Intake: Oral 480 Other: # Voids 1 Active Medications: Current Medications Acetaminophen (Tylenol) 650 mg PO Q4H PRN PRN Reason: Pain Or Fever above 101 Stop: 01/23/18 17:11 Last Admin: 11/27/17 21:06 Dose: 650 mg Al Hydrox/Mg Hydrox/Simethicone (Maalox) 30 ml PO Q4HR PRN PRN Reason: GI DISTRESS Stop: 01/23/18 17:01 Albuterol/Ipratropium (Duoneb Neb) 3 ml HHN TIDRT [facility] Stop: 01/30/18 14:59 Last Admin: 12/06/17 13:17 Dose: 3 ml Benztropine Mesylate (Cogentin) 0.5 mg PO BID [facility] Stop: 01/24/18 08:59 Last Admin: 12/06/17 09:00 Dose: 0.5 mg Guaifenesin (Robitussin) 200 mg PO Q4HR PRN PRN Reason: Cough or Congestion Stop: 01/23/18 17:11 Haloperidol Decanoate (Haldol Dec) 50 mg IM QMONTH [facility] PRN Reason: Protocol Stop: 02/02/18 09:59 Last Admin: 12/04/17 18:36 Dose: 50 mg Insulin Aspart (Novolog Insulin Sliding Scale) 2 - 12 units SUBQ ACHS [facility] PRN Reason: Protocol Stop: 01/23/18 20:59 Last Admin: 12/06/17 06:40 Dose: Not Given Lorazepam (Ativan) 0.5 mg PO Q4HR PRN; Protocol PRN Reason: Agitation Stop: 12/24/17 17:01 Last Admin: 12/05/17 20:08 Dose: 0.5 mg Magnesium Hydroxide (Milk Of Magnesia) 30 ml PO HS PRN PRN Reason: Constipation Multivitamins/Vitamin C (Theragran) 1 tab PO DAILY [facility] Stop: 01/24/18 08:59 Last Admin: 12/06/17 09:00 Dose: 1 tab Risperidone (Risperdal) 2 mg PO BID [facility] PRN Reason: Protocol Stop: 01/27/18 16:59 Last Admin: 12/06/17 09:01 Dose: 2 mg Zolpidem Tartrate (Ambien) 5 mg PO HS PRN PRN Reason: Insomnia Stop: 01/23/18 17:01 Last Admin: 12/04/17 20:26 Dose: 5 mg General: alert HEENT: NC/AT, PERRLA Neck: Supple Lungs: CTAB Cardiovascular: RRR, Normal S1, Normal S2, without murmur Abdomen: soft, non-tender, non-distended, positive bowel sound Extremities: excoriation Neurological: no change Internal Medicine Assmt/Plan - Assessment Assessment: - Assessment Assessment: dm2 generalized weakness schizophrenia - Plan Plan: monitor glucose and s/sx of hypoglycemia fall precautions cpm - Plan Plan: ada diet varghese rn Nutritional Asmnt/Malnutr-PDOC - Dietary Evaluation Malnutrition Findings (Please click <Entered> for more info): Nutritional Asmnt/Malnutrition Start: 12/01/17 14: 08 Text: Status: Complete Freq: Document 12/01/17 14:08 MANJINDER (Rec: 12/01/17 14:26 [email or web address] Nutritional Asmnt/Malnutrition Patient General Information Nutritional Screening Low Risk Diagnosis psychosis Pertinent Medical Hx/Surgical Hx DM, schizophrenia, anxiety, psychosis, I&D of L side of neck Subjective Information Pt seen smoking in patio at time of visit. 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 Per EMR, PO intake mostly 100%. Current Diet Order/ Nutrition Support regular Pertinent Medications novolog insulin, theragran Pertinent Labs 11/29-12/01 POC 84-130 Nutritional Hx/Data Height 1.68 m Height (Calculated Centimeters) 167.6 Current Weight (lbs) 59.421 kg Weight (Calculated Kilograms) 59.4 Weight (Calculated Grams) 15529.6 [place] Body Weight 84-130 Body Mass Index (BMI) 21.1 Weight Status Approriate GI Symptoms GI Symptoms None Last BM 11/30 Difficult in: None Skin Integrity/Comment: intact Current %PO Good (75-100%) Estimated Nutritional Goals BEE in Kcals: Using Current wt Calories/Kcals/Kg 25-30 Kcals Calculated 9863-5211 Protein: Using Current wt Protein g/k-1.2 Protein Calculated 60-72 Fluid: ml 1500-1800ml (1ml/kcal) Nutritional Problem No current Nutrition Prob Problem N/A Malnutrition Alert Protein-Calorie Malnutrition N/A Is there a minimum of two criteria No selected? Query Text:Check all the applicable criteria. A minimum of two criteria are recommended for diagnosis of either severe or non-severe malnutrition. Intervention/Recommendation Comments 1. Continue with regular diet as ordered. 2. Monitor PO intake, wt, labs and skin integrity 3. F/U as low risk in 7 days, 12/08 Expected Outcomes/Goals Expected Outcomes/Goals 1. PO intake continue to meet at least 75% of nutritional needs. 2. Wt stability, skin to remain intact, labs WNL.
[2017-12-06 20:06] LABS: GLUCOSE ACCUCHECK NOVA 120 mg/dL (70 - 105)
--- NOTE | 2017-12-07 04:34 | Progress Notes ---
DATE: 12/06/2017 SUBJECTIVE: Staff was spoken to. The patient is interviewed. Mood is noted to be anxious. Affect is constricted. The patient denies any command hallucinations, paranoia is noted. The patient's coping skills are noted to be improving. The patient has been able to tolerate the Haldol. No side effects to the medications are noted. Sleep and appetite are noted to be fair at this time. No intrusive behavior is reported today. ASSESSMENT: The patient's psychosis is resolving. PLAN: To continue the patient with the supportive therapy and followup. JOB# [id number]
[2017-12-07 06:08] LABS: GLUCOSE ACCUCHECK NOVA 93 mg/dL (70 - 105)
[2017-12-07] MEDS: INSULIN ASPART SLIDING SCALE 100 UNITS/ML UNIT SUBQ SCH ×4 (06:50→21:20)
[2017-12-07] MEDS: Albuterol/Ipratropium Neb 3 ML AERS HHN SCH ×3 (07:22→23:34)
[2017-12-07] MEDS: risperiDONE 1 mg/mL 30 mL Bottle PO SCH ×2 (08:14→17:01)
[2017-12-07] MEDS: Multivitamin Tab PO SCH (08:14)
[2017-12-07 09:39] LABS: GLUCOSE ACCUCHECK NOVA 107 MG/DL (70-105)
[2017-12-07 09:40] LABS: GLUCOSE ACCUCHECK NOVA 95 MG/DL (70-105)
--- NOTE | 2017-12-07 10:56 | Internal Medicine Prog Note ---
Internal Medicine Subjective - Subjective Service Date: 12/07/17 Patient is:: awake, verbal, interactive Per staff patient has:: no adverse event, eating well, tolerating meds Internal Medicine Objective - Results Recent Labs: Laboratory Last Values POC Glucose 93 MG/DL (70 - 105) 12/07/17 06:00 - Physical Exam Vitals and I&O: Vital Signs Temp 99.5 F 12/07/17 06:10 Pulse 65 12/07/17 07:27 Resp 18 12/07/17 07:27 BP 135/75 12/07/17 06:10 Pulse Ox 98 12/07/17 07:27 Intake & Output 12/06/17 12/07/17 12/07/17 18:59 06:59 18:59 Intake Total 1200 240 Balance 1200 240 Intake: Oral 1200 240 Other: # Voids 4 3 # Bowel Movements 1 0 Active Medications: Current Medications Acetaminophen (Tylenol) 650 mg PO Q4H PRN PRN Reason: Pain Or Fever above 101 Stop: 01/23/18 17:11 Last Admin: 11/27/17 21:06 Dose: 650 mg Al Hydrox/Mg Hydrox/Simethicone (Maalox) 30 ml PO Q4HR PRN PRN Reason: GI DISTRESS Stop: 01/23/18 17:01 Albuterol/Ipratropium (Duoneb Neb) 3 ml HHN TIDRT [facility] Stop: 01/30/18 14:59 Last Admin: 12/07/17 07:22 Dose: 3 ml Benztropine Mesylate (Cogentin) 0.5 mg PO BID [facility] Stop: 01/24/18 08:59 Last Admin: 12/07/17 08:14 Dose: 0.5 mg Guaifenesin (Robitussin) 200 mg PO Q4HR PRN PRN Reason: Cough or Congestion Stop: 01/23/18 17:11 Haloperidol Decanoate (Haldol Dec) 50 mg IM QMONTH [facility] PRN Reason: Protocol Stop: 02/02/18 09:59 Last Admin: 12/04/17 18:36 Dose: 50 mg Insulin Aspart (Novolog Insulin Sliding Scale) 2 - 12 units SUBQ ACHS [facility] PRN Reason: Protocol Stop: 01/23/18 20:59 Last Admin: 12/07/17 06:50 Dose: Not Given Lorazepam (Ativan) 0.5 mg PO Q4HR PRN; Protocol PRN Reason: Agitation Stop: 12/24/17 17:01 Last Admin: 12/07/17 08:14 Dose: 0.5 mg Magnesium Hydroxide (Milk Of Magnesia) 30 ml PO HS PRN PRN Reason: Constipation Multivitamins/Vitamin C (Theragran) 1 tab PO DAILY [facility] Stop: 01/24/18 08:59 Last Admin: 12/07/17 08:14 Dose: 1 tab Risperidone (Risperdal) 2 mg PO BID [facility] PRN Reason: Protocol Stop: 01/27/18 16:59 Last Admin: 12/07/17 08:14 Dose: 2 mg Zolpidem Tartrate (Ambien) 5 mg PO HS PRN PRN Reason: Insomnia Stop: 01/23/18 17:01 Last Admin: 12/04/17 20:26 Dose: 5 mg General: alert HEENT: NC/AT, PERRLA Neck: Supple Lungs: CTAB Cardiovascular: RRR, Normal S1, Normal S2, without murmur Abdomen: soft, non-tender, non-distended, positive bowel sound Extremities: excoriation Neurological: no change Internal Medicine Assmt/Plan - Assessment Assessment: dm2 generalized weakness schizophrenia - Plan Plan: monitor glucose and s/sx of hypoglycemia fall precautions cpm Nutritional Asmnt/Malnutr-PDOC - Dietary Evaluation Malnutrition Findings (Please click <Entered> for more info): Nutritional Asmnt/Malnutrition Start: 12/01/17 14: 08 Text: Status: Complete Freq: Document 12/01/17 14:08 MANJINDER (Rec: 12/01/17 14:26 GEOFFREY GRACIE-[email or web address]) Nutritional Asmnt/Malnutrition Patient General Information Nutritional Screening Low Risk Diagnosis psychosis Pertinent Medical Hx/Surgical Hx DM, schizophrenia, anxiety, psychosis, I&D of L side of neck Subjective Information Pt seen smoking in patio at time of visit. 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 Per EMR, PO intake mostly 100%. Current Diet Order/ Nutrition Support regular Pertinent Medications novolog insulin, theragran Pertinent Labs 11/29-12/01 POC 84-130 Nutritional Hx/Data Height 5 ft 6 in Height (Calculated Centimeters) 167.6 Current Weight (lbs) 131 lb Weight (Calculated Kilograms) 59.4 Weight (Calculated Grams) 29222.6 [place] Body Weight 84-130 Body Mass Index (BMI) 21.1 Weight Status Approriate GI Symptoms GI Symptoms None Last BM 11/30 Difficult in: None Skin Integrity/Comment: intact Current %PO Good (75-100%) Estimated Nutritional Goals BEE in Kcals: Using Current wt Calories/Kcals/Kg 25-30 Kcals Calculated 4282-9488 Protein: Using Current wt Protein g/k-1.2 Protein Calculated 60-72 Fluid: ml 1500-1800ml (1ml/kcal) Nutritional Problem No current Nutrition Prob Problem N/A Malnutrition Alert Protein-Calorie Malnutrition N/A Is there a minimum of two criteria No selected? Query Text:Check all the applicable criteria. A minimum of two criteria are recommended for diagnosis of either severe or non-severe malnutrition. Intervention/Recommendation Comments 1. Continue with regular diet as ordered. 2. Monitor PO intake, wt, labs and skin integrity 3. F/U as low risk in 7 days, 12/08 Expected Outcomes/Goals Expected Outcomes/Goals 1. PO intake continue to meet at least 75% of nutritional needs. 2. Wt stability, skin to remain intact, labs WNL.
[2017-12-07 11:45] LABS: GLUCOSE ACCUCHECK NOVA 106 mg/dL (70 - 105)
--- NOTE | 2017-12-08 04:09 | Progress Notes ---
DATE: 12/07/2017 SUBJECTIVE: Staff was spoken to the patient. The patient is interviewed. Mood is noted to be anxious. Insight and judgment are improving. Impulse control seems to be fair today. Paranoia is resolving. No side effects to the medications are noted. The patient has been eating well and sleep is also noted to be fair. ASSESSMENT: The patient's psychosis is resolving. PLAN: To continue the patient with the supportive therapy. I encouraged the patient to verbalize the concerns rather than to act out and once the placement is available, the patient is going to be discharged. JOB# [id number]
[2017-12-08] MEDS: Albuterol/Ipratropium Neb 3 ML AERS HHN SCH ×3 (06:59→23:47)
[2017-12-08] MEDS: INSULIN ASPART SLIDING SCALE 100 UNITS/ML UNIT SUBQ SCH ×3 (07:30→22:00)
[2017-12-08] MEDS: Multivitamin Tab PO SCH (09:24)
[2017-12-08] MEDS: risperiDONE 1 mg/mL 30 mL Bottle PO SCH ×2 (09:24→17:27)
[2017-12-08 10:27] LABS: GLUCOSE ACCUCHECK NOVA 154 MG/DL (70-105)
--- NOTE | 2017-12-08 10:33 | Discharge Summary ---
DATE OF DISCHARGE: 12/08/2017 IDENTIFYING DATA: The patient is a 57-year-old -[place] male, resident of [facility]. JUSTIFICATION OF HOSPITALIZATION: The patient is admitted on a voluntary basis in view of his acute psychosis and agitation. CHIEF COMPLAINT: "Home." DIAGNOSES AT THE TIME OF ADMISSION: AXIS I: Schizophrenia, chronic paranoid type with acute exacerbation. AXIS II: None. AXIS III: As per Dr. Partida. HISTORY OF PRESENT ILLNESS: Please refer to the 11/24/2017 dictation done by me. Physical examination at the time of admission was done by Dr. Partida and is noted to be within normal limits. No major intervention was needed. HOSPITAL COURSE AND RESPONSE TO TREATMENT: The patient has been closely monitored on the inpatient unit, provided with supportive psychotherapy. The patient has been given the insulin coverage for his diabetes and patient has been placed on Risperdal 2 mg twice a day. The patient also has been given a shot of Haldol Decanoate, but at the time of the discharge the patient had been only on one antipsychotic medication. The patient has been encouraged to participate in the groups and verbalize the concerns. The patient's impulsivity started to resolve. Insight and judgment also started to resolve. No side effects to the medications are noted at the time of the discharge. CONDITION AT THE TIME OF DISCHARGE: Noted to be stable. The patient is not noted to be a danger to self or others at the time of discharge. DIAGNOSES AT THE TIME OF DISCHARGE: AXIS I: Schizophrenia, chronic paranoid type. AXIS II: None. AXIS III: Diabetes mellitus. AFTERCARE PLAN: The patient is discharged to the [facility] for further followup. [facility]# [id number]
--- NOTE | 2017-12-08 13:37 | Internal Medicine Prog Note ---
Internal Medicine Subjective - Subjective Service Date: 12/08/17 Patient is:: awake, verbal, interactive Per staff patient has:: no adverse event, eating well, tolerating meds Internal Medicine Objective - Results Recent Labs: Laboratory Last Values POC Glucose 154 MG/DL (70-105) H 12/07/17 16:23 - Physical Exam Vitals and I&O: Vital Signs Temp 98.6 F 12/08/17 05:50 Pulse 68 12/08/17 07:06 Resp 18 12/08/17 07:06 BP 119/76 12/08/17 05:50 Pulse Ox 98 12/08/17 07:06 Intake & Output 12/07/17 12/08/17 12/08/17 18:59 06:59 18:59 Intake Total 1600 360 Balance 1600 360 Intake: Oral 1600 360 Other: # Voids 4 1 # Bowel Movements 1 0 Active Medications: Current Medications Acetaminophen (Tylenol) 650 mg PO Q4H PRN PRN Reason: Pain Or Fever above 101 Stop: 01/23/18 17:11 Last Admin: 11/27/17 21:06 Dose: 650 mg Al Hydrox/Mg Hydrox/Simethicone (Maalox) 30 ml PO Q4HR PRN PRN Reason: GI DISTRESS Stop: 01/23/18 17:01 Albuterol/Ipratropium (Duoneb Neb) 3 ml HHN TIDRT [facility] Stop: 01/30/18 14:59 Last Admin: 12/08/17 06:59 Dose: 3 ml Benztropine Mesylate (Cogentin) 0.5 mg PO BID [facility] Stop: 01/24/18 08:59 Last Admin: 12/08/17 09:24 Dose: 0.5 mg Guaifenesin (Robitussin) 200 mg PO Q4HR PRN PRN Reason: Cough or Congestion Stop: 01/23/18 17:11 Haloperidol Decanoate (Haldol Dec) 50 mg IM QMONTH SARA PRN Reason: Protocol Stop: 02/02/18 09:59 Last Admin: 12/04/17 18:36 Dose: 50 mg Insulin Aspart (Novolog Insulin Sliding Scale) 2 - 12 units SUBQ ACHS SARA PRN Reason: Protocol Stop: 01/23/18 20:59 Last Admin: 12/07/17 21:20 Dose: 6 units Lorazepam (Ativan) 0.5 mg PO Q4HR PRN; Protocol PRN Reason: Agitation Stop: 12/24/17 17:01 Last Admin: 12/08/17 09:24 Dose: 0.5 mg Magnesium Hydroxide (Milk Of Magnesia) 30 ml PO HS PRN PRN Reason: Constipation Multivitamins/Vitamin C (Theragran) 1 tab PO DAILY SARA Stop: 01/24/18 08:59 Last Admin: 12/08/17 09:24 Dose: 1 tab Risperidone (Risperdal) 2 mg PO BID SARA PRN Reason: Protocol Stop: 01/27/18 16:59 Last Admin: 12/08/17 09:24 Dose: 2 mg Zolpidem Tartrate (Ambien) 5 mg PO HS PRN PRN Reason: Insomnia Stop: 01/23/18 17:01 Last Admin: 12/07/17 21:14 Dose: 5 mg General: alert HEENT: NC/AT, PERRLA Neck: Supple Lungs: CTAB Cardiovascular: RRR, Normal S1, Normal S2, without murmur Abdomen: soft, non-tender, non-distended, positive bowel sound Extremities: excoriation Neurological: no change Internal Medicine Assmt/Plan - Assessment Assessment: dm2 generalized weakness schizophrenia - Plan Plan: monitor glucose and s/sx of hypoglycemia fall precautions cpm Nutritional Asmnt/Malnutr-PDOC - Dietary Evaluation Malnutrition Findings (Please click <Entered> for more info): Nutritional Asmnt/Malnutrition Start: 12/01/17 14: 08 Text: Status: Complete Freq: Document 12/01/17 14:08 GEOFFREY (Rec: 12/01/17 14:26 GEOFFREY [email or web address]) Nutritional Asmnt/Malnutrition Patient General Information Nutritional Screening Low Risk Diagnosis psychosis Pertinent Medical Hx/Surgical Hx DM, schizophrenia, anxiety, psychosis, I&D of L side of neck Subjective Information Pt seen smoking in patio at time of visit. Per [employer], pt eats very well, no nutrition related concern. Per EMR, PO intake mostly 100%. Current Diet Order/ Nutrition Support regular Pertinent Medications novolog insulin, theragran Pertinent Labs 11/29-12/01 POC 84-130 Nutritional Hx/Data Height 5 ft 6 in Height (Calculated Centimeters) 167.6 Current Weight (lbs) 131 lb Weight (Calculated Kilograms) 59.4 Weight (Calculated Grams) 32411.6 [place] Body Weight 84-130 Body Mass Index (BMI) 21.1 Weight Status Approriate GI Symptoms GI Symptoms None Last BM 11/30 Difficult in: None Skin Integrity/Comment: intact Current %PO Good (75-100%) Estimated Nutritional Goals BEE in Kcals: Using Current wt Calories/Kcals/Kg 25-30 Kcals Calculated 8555-7690 Protein: Using Current wt Protein g/k-1.2 Protein Calculated 60-72 Fluid: ml 1500-1800ml (1ml/kcal) Nutritional Problem No current Nutrition Prob Problem N/A Malnutrition Alert Protein-Calorie Malnutrition N/A Is there a minimum of two criteria No selected? Query Text:Check all the applicable criteria. A minimum of two criteria are recommended for diagnosis of either severe or non-severe malnutrition. Intervention/Recommendation Comments 1. Continue with regular diet as ordered. 2. Monitor PO intake, wt, labs and skin integrity 3. F/U as low risk in 7 days, 12/08 Expected Outcomes/Goals Expected Outcomes/Goals 1. PO intake continue to meet at least 75% of nutritional needs. 2. Wt stability, skin to remain intact, labs WNL.
[2017-12-08 17:42] LABS: GLUCOSE ACCUCHECK NOVA 101 mg/dL (70 - 105)
[2017-12-08 21:58] LABS: GLUCOSE ACCUCHECK NOVA 99 mg/dL (70 - 105)
[2017-12-09 06:10] LABS: GLUCOSE ACCUCHECK NOVA 88 mg/dL (70 - 105)
[2017-12-09] MEDS: Albuterol/Ipratropium Neb 3 ML AERS HHN SCH (07:19)
[2017-12-09] MEDS: Multivitamin Tab PO SCH (09:20)
[2017-12-09] MEDS: risperiDONE 1 mg/mL 30 mL Bottle PO SCH (09:20)
--- NOTE | 2017-12-09 12:39 | Internal Medicine Prog Note ---
Internal Medicine Subjective - Subjective Service Date: 12/09/17 Patient is:: awake, verbal, interactive Per staff patient has:: no adverse event, eating well, tolerating meds Internal Medicine Objective - Results Recent Labs: Laboratory Last Values POC Glucose 88 MG/DL (70 - 105) 12/09/17 04:55 - Physical Exam Vitals and I&O: Vital Signs Temp 97.5 F 12/09/17 06:17 Pulse 74 12/09/17 07:23 Resp 20 12/09/17 07:23 BP 114/65 12/09/17 06:17 Pulse Ox 97 12/09/17 07:23 Intake & Output 12/08/17 12/09/17 12/09/17 18:59 06:59 18:59 Intake Total 1200 120 Balance 1200 120 Intake: Oral 1200 120 Other: # Voids 3 3 # Bowel Movements 1 Active Medications: Current Medications Acetaminophen (Tylenol) 650 mg PO Q4H PRN PRN Reason: Pain Or Fever above 101 Stop: 01/23/18 17:11 Last Admin: 11/27/17 21:06 Dose: 650 mg Al Hydrox/Mg Hydrox/Simethicone (Maalox) 30 ml PO Q4HR PRN PRN Reason: GI DISTRESS Stop: 01/23/18 17:01 Albuterol/Ipratropium (Duoneb Neb) 3 ml HHN TIDRT [facility] Stop: 01/30/18 14:59 Last Admin: 12/09/17 07:19 Dose: 3 ml Benztropine Mesylate (Cogentin) 0.5 mg PO BID [facility] Stop: 01/24/18 08:59 Last Admin: 12/09/17 09:20 Dose: 0.5 mg Guaifenesin (Robitussin) 200 mg PO Q4HR PRN PRN Reason: Cough or Congestion Stop: 01/23/18 17:11 Haloperidol Decanoate (Haldol Dec) 50 mg IM QMONTH SARA PRN Reason: Protocol Stop: 02/02/18 09:59 Last Admin: 12/04/17 18:36 Dose: 50 mg Insulin Aspart (Novolog Insulin Sliding Scale) 2 - 12 units SUBQ ACHS SARA PRN Reason: Protocol Stop: 01/23/18 20:59 Last Admin: 12/08/17 22:00 Dose: Not Given Lorazepam (Ativan) 0.5 mg PO Q4HR PRN; Protocol PRN Reason: Agitation Stop: 12/24/17 17:01 Last Admin: 12/09/17 09:19 Dose: 0.5 mg Magnesium Hydroxide (Milk Of Magnesia) 30 ml PO HS PRN PRN Reason: Constipation Multivitamins/Vitamin C (Theragran) 1 tab PO DAILY SARA Stop: 01/24/18 08:59 Last Admin: 12/09/17 09:20 Dose: 1 tab Risperidone (Risperdal) 2 mg PO BID [facility]ARA PRN Reason: Protocol Stop: 01/27/18 16:59 Last Admin: 12/09/17 09:20 Dose: 2 mg Zolpidem Tartrate (Ambien) 5 mg PO HS PRN PRN Reason: Insomnia Stop: 01/23/18 17:01 Last Admin: 12/07/17 21:14 Dose: 5 mg General: alert HEENT: NC/AT, PERRLA Neck: Supple Lungs: CTAB Cardiovascular: RRR, Normal S1, Normal S2, without murmur Abdomen: soft, non-tender, non-distended, positive bowel sound Extremities: excoriation Neurological: no change Internal Medicine Assmt/Plan - Assessment Assessment: dm2 generalized weakness schizophrenia - Plan Plan: monitor glucose and s/sx of hypoglycemia fall precautions cpm Nutritional Asmnt/Malnutr-PDOC - Dietary Evaluation Malnutrition Findings (Please click <Entered> for more info): Nutritional Asmnt/Malnutrition Start: 12/01/17 14: 08 Text: Status: Complete Freq: Document 12/01/17 14:08 JOSTIN (Rec: 12/01/17 14:26 GEOFFREY [id number]) Nutritional Asmnt/Malnutrition Patient General Information Nutritional Screening Low Risk Diagnosis psychosis Pertinent Medical Hx/Surgical Hx DM, schizophrenia, anxiety, psychosis, I&D of L side of neck Subjective Information Pt seen smoking in patio at time of visit. Per [employer], pt eats very well, no nutrition related concern. Per EMR, PO intake mostly 100%. Current Diet Order/ Nutrition Support regular Pertinent Medications novolog insulin, theragran Pertinent Labs 11/29-12/01 POC 84-130 Nutritional Hx/Data Height 5 ft 6 in Height (Calculated Centimeters) 167.6 Current Weight (lbs) 131 lb Weight (Calculated Kilograms) 59.4 Weight (Calculated Grams) 89407.6 [place] Body Weight 84-130 Body Mass Index (BMI) 21.1 Weight Status Approriate GI Symptoms GI Symptoms None Last BM 4/9 Difficult in: None Skin Integrity/Comment: intact Current %PO Good (75-100%) Estimated Nutritional Goals BEE in Kcals: Using Current wt Calories/Kcals/Kg 25-30 Kcals Calculated 7823-2864 Protein: Using Current wt Protein g/k-1.2 Protein Calculated 60-72 Fluid: ml 1500-1800ml (1ml/kcal) Nutritional Problem No current Nutrition Prob Problem N/A Malnutrition Alert Protein-Calorie Malnutrition N/A Is there a minimum of two criteria No selected? Query Text:Check all the applicable criteria. A minimum of two criteria are recommended for diagnosis of either severe or non-severe malnutrition. Intervention/Recommendation Comments 1. Continue with regular diet as ordered. 2. Monitor PO intake, wt, labs and skin integrity 3. F/U as low risk in 7 days, 12/08 Expected Outcomes/Goals Expected Outcomes/Goals 1. PO intake continue to meet at least 75% of nutritional needs. 2. Wt stability, skin to remain intact, labs WNL.
== END 2017-12-09 14:20 | DRG 885 ==
LOC: GERO 14:53
PROVIDERS: ADMIT Psychiatry & Neurology Psychiatry; ATTEND Psychiatry & Neurology Psychiatry
DX: F20.0 Paranoid schizophrenia (principal); E11.9 Type 2 diabetes mellitus without complications; F41.9 Anxiety disorder, unspecified; F29 Unspecified psychosis not due to a substance or known physiological condition
CPT/HCPCS: 82948-90; 90899; 94640; 94760; G0410; J1630; J1631; Z7610

== ENCOUNTER 2018-04-26 15:16 | Inpatient (IN) | payer MEDICARE, MEDICAID ==
--- NOTE | 2018-04-26 15:42 | ED Physician Chart ---
ED Chief Complaint/HPI - Patient Information Date Seen:: 04/26/18 Time Seen:: 15:37 Chief Complaint:: AGITATION PSYCHOSIS History of Present Illness:: 57 YR OLD MALE WITH AGITATION GETTING WORSE TOWARD THE STAFF PT WITH SCHIZOPHRENIA AND PSYCHOSIS PT ALERT VERBAL MOVING 1LL 4 Allergies:: Allergies Allergy/AdvReac Type Severity Reaction Status Date / Time No Known Allergies Allergy Verified 05/21/17 20:03 ED Review of Systems - Review of Systems General/Constitutional: No fever Skin: No skin lesions Head: No headache Eyes: No loss of vision ENT: No nasal drainage Neck: No neck pain Cardio Vascular: No chest pain Pulmonary: No SOB GI: No vomiting Endocrine: No polyuria (ANXIETY AGITATION PSYCHOSIS SHIZOPHRENIA) Psychiatric: Other Hematopoietic: No bruising Allergic/Immuno: No urticaria Neurological: No syncope ED Past Medical History - Past Medical History Past Medical History: Dyslipidemia, Other (PSYCH DISORDER ANXIETY AGITATION SCHIZOPHRENIA) Family Medical History - Family Member Mother History Unknown: Yes ED Physical Exam - Physical Examination General/Constitutional: Alert Other Gen/Cons comments:: ANXIOUS AGITATEDSMELLS TOBACCO STRONGLY Head: Atraumatic Eyes: Lids, conjuctiva normal Skin: Nl inspection ENMT: External ears, nose nl Neck: Nontender Respiratory: Nl effort/Exclusion Cardio Vascular: RRR GI: No organomegaly : No CVA tenderness Neuro/Psych: Alert/oriented Misc: Normal back ED Assessment - Assessment General Assessment: AGITATION PSYCHOSIS ED Septic Shock - . Is Septic Shock (SBP<90, OR Lactate>4 mmol\L) present?: No ED Reassessment (Disposition) - Diagnosis Diagnosis:: AGITATION PSYCHOSIS - Patient Disposition Discharge/Transfer:: Acute Care w/in this hosp Condition at Disposition:: Stable
[2018-04-26 15:59] LABS: % BASOPHILS 0.2 % (0.0-2.0); % EOSINOPHILS 3.7 % (0.0-5.0); % LYMPHOCYTES 17.1 % (20.0-50.0); % MONOCYTES 5.2 % (2.0-10.0); % NEUTROPHILS 73.8 % (40.0-80.0); EOSINOPHILE ABSOLUTE 0.2 Th/cmm (0.1-0.4); HEMATOCRIT 34.8 % (41.0-60); HEMOGLOBIN 11.6 gm/dL (12-16); LYMPHOCYTE ABSOLUTE 0.9 Th/cmm (1.5-3.0); MEAN CELL VOLUME 87.5 fl (80-99); MEAN CORPUSCULAR HGB CONC 33.2 pg (28.0-36.0); MEAN PLATELET VOLUME 7.6 fl; MONOCYTE ABSOLUTE 0.3 Th/cmm (0.3-1.0); NEUTROPHILE ABSOLUTE 3.8 Th/cmm (1.8-8.0); PLATELET COUNT 171 Th/cmm (150-400); RED BLOOD COUNT 3.98 Mil/cmm (4.30-5.70); RED CELL DISTRIBUTION WIDTH 12.2 % (11.5-20.0); WHITE BLOOD COUNT 5.2 Th/cmm (4.8-10.8)
[2018-04-26 16:17] LABS: ALB/GLOB RATIO 1.6 (1.0-1.8); ALBUMIN 3.9 gm/dL (4.2-5.5); ALKALINE PHOSPHATASE 49 U/L (34-104); ANION GAP 7.9 (7.0-16.0); BILIRUBIN,TOTAL 0.5 mg/dL (0.3-1.0); BUN - UREA NITROGEN 15 mg/dL (7-25); CALCIUM SERUM 9.3 mg/dL (8.6-10.3); CARBON DIOXIDE 29.9 mEq/L (21.0-31.0); CHLORIDE 101 mEq/L (98-107); CREATININE - SERUM 0.8 mg/dL (0.7-1.3); GFR AFRICAN-AMERICAN > 60.0 ml/min (>90); GFR NON AFRICAN-AMERICAN > 60.0 ml/min; GLUCOSE 98 mg/dL (70-105); POTASSIUM SERUM 3.8 mEq/L (3.5-5.1); SGOT 18 U/L (13-39); SGPT/ALT 11 U/L (7-52); SODIUM SERUM 135 mEq/L (136-145); TOTAL PROTEIN,SERUM 6.4 gm/dL (6.0-8.3)
[2018-04-26 17:05] LABS: URINE SOURCE CLEAN C
[2018-04-26 17:09] LABS: URINE BILIRUBIN NEGATIVE (NEGATIVE); URINE BLOOD NEGATIVE (NEGATIVE); URINE GLUCOSE (UA) NEGATIVE (NEGATIVE); URINE KETONE NEGATIVE (NEGATIVE); URINE LEUKOCYTE ESTERASE TRACE (NEGATIVE); URINE MICROSCOPIC INDICATED? YES; URINE NITRATE NEGATIVE (NEGATIVE); URINE PROTEIN NEGATIVE (NEGATIVE)
[2018-04-26 17:16] LABS: URINE COLOR YELLOW
[2018-04-26 17:17] LABS: URINE CLARITY SLIGHTLY HAZY (CLEAR)
[2018-04-26 17:18] LABS: URINE WBC 0-2 /hpf (0-5)
[2018-04-26 17:20] LABS: URINE BACTERIA NONE SEEN /hpf (NONE SEEN); URINE EPITHELIAL CELLS OCCASIONAL /lpf (FEW)
[2018-04-26] MEDS ORDERED: Magnesium Hydroxide (MOM) 30 mL UDC PO PRN ×2 (17:54→18:17)
[2018-04-26] MEDS ORDERED: Maalox 30 mL Cup PO PRN ×2 (17:54→18:17)
[2018-04-26] MEDS ORDERED: guaiFENesin 200 MG/10 ML UDC PO PRN (18:17)
[2018-04-26] MEDS ORDERED: Non-Formulary Item 1 EA (Glucagon Hcl [Glucagon Hcl] 1 MG) SUBQ SCH (18:30)
[2018-04-26] MEDS: INSULIN ASPART SLIDING SCALE 100 UNITS/ML UNIT SUBQ SCH (20:01)
[2018-04-26] MEDS ORDERED: Non-Formulary Item 1 EA (Melatonin [Melatonin] 6 MG) PO SCH (21:00)
[2018-04-26] MEDS ORDERED: INSULIN ASPART, RECOMBINANT 100 UNITS/ML SUBQ SCH (21:00)
[2018-04-26 21:11] VITALS: BP 114/82
[2018-04-27] MEDS: INSULIN ASPART SLIDING SCALE 100 UNITS/ML UNIT SUBQ SCH ×4 (06:39→20:04)
[2018-04-27] MEDS: Albuterol Nebulizer 2.5mg/3mL HHN SCH ×4 (07:37→19:27)
[2018-04-27] MEDS: Ipratropium Neb 0.5 mg/2.5 mL UD HHN SCH ×4 (07:37→19:27)
--- NOTE | 2018-04-27 08:16 | Diagnostic Imaging Report ---
Portable chest x-ray Time: 1616 History: Shortness of breath Allowing for portable technique the heart size is normal. No focal pulmonary parenchymal processes. No hilar or mediastinal abnormalities. Impression: No acute abnormalities.
[2018-04-27] MEDS ORDERED: Multivitamin Tab PO SCH (09:00)
[2018-04-27] MEDS: Multivitamin Tab PO SCH (09:35)
[2018-04-27] MEDS: Albuterol/Ipratropium Neb 3 ML AERS HHN SCH ×2 (10:30→15:39)
--- NOTE | 2018-04-27 13:02 | Internal Medicine Prog Note ---
Internal Medicine Subjective - Subjective Service Date: 04/27/18 ([id number] [facility]) Internal Medicine Objective - Results Result Diagrams: 04/26/18 15:50 04/26/18 15:50 Recent Labs: Laboratory Last Values WBC 5.2 Th/cmm (4.8-10.8) 04/26/18 15:50 RBC 3.98 Mil/cmm (4.30-5.70) L 04/26/18 15:50 Hgb 11.6 gm/dL (12-16) L 04/26/18 15:50 Hct 34.8 % (41.0-60) L 04/26/18 15:50 MCV 87.5 fl (80-99) 04/26/18 15:50 MCH 29.0 pg (26.0-30.0) 04/26/18 15:50 MCHC Differential 33.2 pg (28.0-36.0) 04/26/18 15:50 RDW 12.2 % (11.5-20.0) 04/26/18 15:50 Plt Count 171 Th/cmm (150-400) 04/26/18 15:50 MPV 7.6 fl 04/26/18 15:50 Neutrophils % 73.8 % (40.0-80.0) 04/26/18 15:50 Lymphocytes % 17.1 % (20.0-50.0) L 04/26/18 15:50 Monocytes % 5.2 % (2.0-10.0) 04/26/18 15:50 Eosinophils % 3.7 % (0.0-5.0) 04/26/18 15:50 Basophils % 0.2 % (0.0-2.0) 04/26/18 15:50 Sodium 135 mEq/L (136-145) L 04/26/18 15:50 Potassium 3.8 mEq/L (3.5-5.1) 04/26/18 15:50 Chloride 101 mEq/L (98-107) 04/26/18 15:50 Carbon Dioxide 29.9 mEq/L (21.0-31.0) 04/26/18 15:50 Anion Gap 7.9 (7.0-16.0) 04/26/18 15:50 BUN 15 mg/dL (7-25) 04/26/18 15:50 Creatinine 0.8 mg/dL (0.7-1.3) 04/26/18 15:50 Est GFR ( Amer) > 60.0 ml/min (>90) 04/26/18 15:50 Est GFR (Non-Af Amer) > 60.0 ml/min 04/26/18 15:50 BUN/Creatinine Ratio 18.8 04/26/18 15:50 Glucose 98 mg/dL (70-105) 04/26/18 15:50 Calcium 9.3 mg/dL (8.6-10.3) 04/26/18 15:50 Total Bilirubin 0.5 mg/dL (0.3-1.0) 04/26/18 15:50 AST 18 U/L (13-39) 04/26/18 15:50 ALT 11 U/L (7-52) 04/26/18 15:50 Alkaline Phosphatase 49 U/L (34-104) 04/26/18 15:50 Total Protein 6.4 gm/dL (6.0-8.3) 04/26/18 15:50 Albumin 3.9 gm/dL (4.2-5.5) L 04/26/18 15:50 Globulin 2.5 gm/dL 04/26/18 15:50 Albumin/Globulin Ratio 1.6 (1.0-1.8) 04/26/18 15:50 Urine Source CLEAN C 04/26/18 16:30 Urine Color YELLOW 04/26/18 16:30 Urine Clarity SLIGHTLY HAZY (CLEAR) 04/26/18 16:30 Urine pH 7.0 (4.6 - 8.0) 04/26/18 16:30 Ur Specific [place] 1.010 (1.005-1.030) 04/26/18 16:30 Urine Protein NEGATIVE mg/dL (NEGATIVE) 04/26/18 16:30 Urine Glucose (UA) NEGATIVE mg/dL (NEGATIVE) 04/26/18 16:30 Urine Ketones NEGATIVE mg/dL (NEGATIVE) 04/26/18 16:30 Urine Blood NEGATIVE (NEGATIVE) 04/26/18 16:30 Urine Nitrate NEGATIVE (NEGATIVE) 04/26/18 16:30 Urine Bilirubin NEGATIVE (NEGATIVE) 04/26/18 16:30 Urine Urobilinogen 2.0 E.U./dL (0.2 - 1.0) 04/26/18 16:30 Ur Leukocyte Esterase TRACE (NEGATIVE) H 04/26/18 16:30 Urine RBC 5-10 /hpf (0-5) H 04/26/18 16:30 Urine WBC 0-2 /hpf (0-5) 04/26/18 16:30 Ur Epithelial Cells OCCASIONAL /lpf (FEW) 04/26/18 16:30 Urine Bacteria NONE SEEN /hpf (NONE SEEN) 04/26/18 16:30 - Physical Exam Vitals and I&O: Vital Signs Temp 98.5 F 04/27/18 04:37 Pulse 66 04/27/18 10:03 Resp 16 04/27/18 10:03 BP 115/75 04/27/18 04:37 Pulse Ox 96 04/27/18 10:03 Intake & Output 04/26/18 04/27/18 04/27/18 18:59 06:59 18:59 Intake Total 600 Balance 600 Weight (lbs) 127 lb Intake: Oral 600 Other: # Voids 2 # Bowel Movements 0 Weight Source Patient stated Active Medications: Current Medications Acetaminophen (Tylenol) 650 mg PO Q4HR PRN PRN Reason: Mild Pain / Temp above 100 Stop: 06/25/18 17:53 Acetaminophen (Tylenol) 650 mg PO Q4H PRN PRN Reason: Pain Or Fever above 101 Stop: 06/25/18 18:16 Al Hydrox/Mg Hydrox/Simethicone (Maalox) 30 ml PO Q4HR PRN PRN Reason: GI DISTRESS Stop: 06/25/18 17:53 Al Hydrox/Mg Hydrox/Simethicone (Maalox) 30 ml PO Q4HR PRN PRN Reason: GI DISTRESS Stop: 06/25/18 18:16 Albuterol Sulfate (Albuterol 2.5mg/3ml Neb Ud) 2.5 mg HHN QIDRT [facility] Stop: 06/25/18 18:59 Last Admin: 04/27/18 10:03 Dose: 2.5 mg Albuterol/Ipratropium (Duoneb Neb) 3 ml HHN TIDRT [facility] Stop: 06/25/18 22:59 Last Admin: 04/27/18 10:30 Dose: Not Given Benztropine Mesylate (Cogentin) 0.5 mg PO BID [facility] Stop: 06/26/18 08:59 Last Admin: 04/27/18 09:35 Dose: 0.5 mg Guaifenesin (Robitussin) 200 mg PO Q4HR PRN PRN Reason: Cough or Congestion Stop: 06/25/18 18:16 Haloperidol (Haldol) 5 mg PO BID [facility]; Protocol Stop: 06/26/18 08:59 Haloperidol Decanoate (Haldol Dec) 75 mg IM QMONTH [facility]; Protocol Stop: 07/05/18 08:59 Insulin Aspart (Novolog Insulin Sliding Scale) 2 - 12 units SUBQ ACHS [facility]; Protocol Stop: 06/25/18 20:59 Last Admin: 04/27/18 12:04 Dose: Not Given Ipratropium [place] (Atrovent Neb 0.5mg/2.5ml) 0.5 mg HHN QIDRT [facility] Stop: 06/25/18 18:59 Last Admin: 04/27/18 10:03 Dose: 0.5 mg Lorazepam (Ativan) 0.5 mg PO Q4HR PRN; Protocol PRN Reason: Anxiety Stop: 06/25/18 17:57 Magnesium Hydroxide (Milk Of Magnesia) 30 ml PO HS PRN PRN Reason: Constipation Magnesium Hydroxide (Milk Of Magnesia) 30 ml PO HS PRN PRN Reason: Constipation Stop: 06/25/18 18:16 Multivitamins/Vitamin C (Theragran) 1 tab PO DAILY [facility] Stop: 06/26/18 08:59 Last Admin: 04/27/18 09:35 Dose: 1 tab Zolpidem Tartrate (Ambien) 5 mg PO HS PRN PRN Reason: Insomnia Stop: 06/25/18 17:53 Last Admin: 04/26/18 21:28 Dose: 5 mg Zolpidem Tartrate (Ambien) 5 mg PO HS PRN PRN Reason: Insomnia Stop: 06/25/18 18:16
--- NOTE | 2018-04-27 15:39 | History & Physical ---
ADMIT DATE: 04/27/2018 CHIEF COMPLAINT: Agitation. HISTORY OF PRESENT ILLNESS: This is a 57-year-old male who is a resident of [facility], admitted here to the Geropsych Unit due to agitation, aggressiveness towards the nursing staff. For further management, the patient is now admitted here to the Geropsych Unit. PAST MEDICAL HISTORY: Dyslipidemia, anxiety, agitation, schizophrenia, diabetes. FAMILY HISTORY: Noncontributory. SOCIAL HISTORY: The patient is a smoker. SURGICAL HISTORY: Unknown. ALLERGIES: No drug allergies. HOME MEDICATIONS: Please see medication list. REVIEW OF SYSTEMS: GENERAL: Denies any fevers and chills. CARDIOVASCULAR: Denies chest pain. RESPIRATORY: Denies shortness of breath. GASTROINTESTINAL: Denies nausea, vomiting, abdominal pain. GENITOURINARY: Denies increased frequency or dysuria. NEUROLOGIC: No headaches, seizures, or syncope. All other systems are reviewed and are negative. PHYSICAL EXAMINATION: GENERAL: The patient is awake, agitated. No apparent distress. VITAL SIGNS: Temperature 98.5, heart rate 71, blood pressure 115/75, respiration 18, O2 95%. HEENT: Head normocephalic, atraumatic. NECK: Supple. No mass. LUNGS: Clear bilaterally. CARDIOVASCULAR: Regular rate and rhythm. ABDOMEN: Soft, nontender, nondistended. LABORATORY DATA: WBC 5.2, H and H 11.6/34.8, platelet of 171. Sodium 135, potassium 3.8, chloride 101, BUN 15, creatinine 0.8. DIAGNOSTICS: The patient had a chest x-ray done and impression is, no acute abnormalities. ASSESSMENT AND PLAN: Dyslipidemia, agitation, schizophrenia, agitation and anxiety, and diabetes. PLAN: We will monitor the patient's glucose level. Accu-Chek a.c. and at bedtime with high dose sliding scale. Continue skilled nursing medications. We will continue to follow this patient. JOB# [id number]
--- NOTE | 2018-04-28 04:34 | Psychiatric Evaluation ---
DATE OF SERVICE: 04/27/2018 IDENTIFYING DATA: The patient is a 57-year-old -[place] male, resident of [facility]. Information obtained by directly interviewing the patient as well as reviewing the admission papers and they are reliable. JUSTIFICATION OF HOSPITALIZATION: The patient is admitted on a voluntary basis in view of his acute agitation and aggressive behavior towards the staff members. CHIEF COMPLAINT: "I should not be in here, I want to go home, get me out of here ____." HISTORY OF PRESENT ILLNESS: This is one of multiple psychiatric hospitalizations for this patient who has been diagnosed as schizophrenia, chronic paranoid type and has been screaming and yelling. The patient has been getting easily agitated. The patient has been aggressive towards the staff members and could not be contained at a lower level of care and has been referred over here. PAST PSYCHIATRIC HISTORY: The patient has been hospitalized on multiple occasions, last hospitalization was in 11/2017. MEDICAL HISTORY: Physical examination is requested from Dr. Partida. SUBSTANCE ABUSE HISTORY: None. PHYSICAL OR SEXUAL ABUSE HISTORY: None. LEGAL PROBLEMS: None at this time. STRENGTH AND ASSETS: The patient is motivated. MENTAL STATUS EXAMINATION: The patient is a 57-year-old, looking his stated age, superficially cooperative. The patient is getting easily agitated. Speech is noted to be pressured at this time. The patient is not making much sense. The patient has paranoid delusions and is demanding that he should be discharged. Coping skills at this time are noted to be very poor. Insight and judgment are noted to be very much impaired. The patient has been having difficult time to cope with the stress. The patient is alert and awake. Insight and judgment are noted to be very much impaired. Impulse control is noted to be poor. Attention span and concentration are noted to be fair. The patient's behavior is a clear danger to others at this time. DIAGNOSTIC IMPRESSION: AXIS I: Schizophrenia, chronic paranoid type. AXIS II: None. AXIS III: As per Dr. Partida. IMMEDIATE TREATMENT PLAN: The patient is going to be observed on inpatient unit, provided with supportive psychotherapy. The patient is going to be encouraged to participate in the groups and verbalize the concerns. The patient is going to be continued on the Haldol and Cogentin. ESTIMATED LENGTH OF STAY: 5-7 days. DISCHARGE CRITERIA: When he no longer is a threat to self or others and be able to deal with the stress. JOB# [id number]
[2018-04-28] MEDS: Albuterol/Ipratropium Neb 3 ML AERS HHN SCH ×2 (07:00→14:15)
[2018-04-28] MEDS: INSULIN ASPART SLIDING SCALE 100 UNITS/ML UNIT SUBQ SCH ×4 (07:03→21:50)
[2018-04-28] MEDS: Ipratropium Neb 0.5 mg/2.5 mL UD HHN SCH ×4 (07:18→19:45)
[2018-04-28] MEDS: Albuterol Nebulizer 2.5mg/3mL HHN SCH ×4 (07:18→19:45)
[2018-04-28] MEDS: Multivitamin Tab PO SCH (08:47)
--- NOTE | 2018-04-28 14:02 | Internal Medicine Prog Note ---
Internal Medicine Subjective - Subjective Service Date: 04/28/18 Patient seen and examined:: with staff Patient is:: awake, verbal Per staff patient has:: tolerating meds Internal Medicine Objective - Results Result Diagrams: 04/26/18 15:50 04/26/18 15:50 Recent Labs: Laboratory Last Values WBC 5.2 Th/cmm (4.8-10.8) 04/26/18 15:50 RBC 3.98 Mil/cmm (4.30-5.70) L 04/26/18 15:50 Hgb 11.6 gm/dL (12-16) L 04/26/18 15:50 Hct 34.8 % (41.0-60) L 04/26/18 15:50 MCV 87.5 fl (80-99) 04/26/18 15:50 MCH 29.0 pg (26.0-30.0) 04/26/18 15:50 MCHC Differential 33.2 pg (28.0-36.0) 04/26/18 15:50 RDW 12.2 % (11.5-20.0) 04/26/18 15:50 Plt Count 171 Th/cmm (150-400) 04/26/18 15:50 MPV 7.6 fl 04/26/18 15:50 Neutrophils % 73.8 % (40.0-80.0) 04/26/18 15:50 Lymphocytes % 17.1 % (20.0-50.0) L 04/26/18 15:50 Monocytes % 5.2 % (2.0-10.0) 04/26/18 15:50 Eosinophils % 3.7 % (0.0-5.0) 04/26/18 15:50 Basophils % 0.2 % (0.0-2.0) 04/26/18 15:50 Sodium 135 mEq/L (136-145) L 04/26/18 15:50 Potassium 3.8 mEq/L (3.5-5.1) 04/26/18 15:50 Chloride 101 mEq/L (98-107) 04/26/18 15:50 Carbon Dioxide 29.9 mEq/L (21.0-31.0) 04/26/18 15:50 Anion Gap 7.9 (7.0-16.0) 04/26/18 15:50 BUN 15 mg/dL (7-25) 04/26/18 15:50 Creatinine 0.8 mg/dL (0.7-1.3) 04/26/18 15:50 Est GFR ( Amer) > 60.0 ml/min (>90) 04/26/18 15:50 Est GFR (Non-Af Amer) > 60.0 ml/min 04/26/18 15:50 BUN/Creatinine Ratio 18.8 04/26/18 15:50 Glucose 98 mg/dL (70-105) 04/26/18 15:50 Calcium 9.3 mg/dL (8.6-10.3) 04/26/18 15:50 Total Bilirubin 0.5 mg/dL (0.3-1.0) 04/26/18 15:50 AST 18 U/L (13-39) 04/26/18 15:50 ALT 11 U/L (7-52) 04/26/18 15:50 Alkaline Phosphatase 49 U/L (34-104) 04/26/18 15:50 Total Protein 6.4 gm/dL (6.0-8.3) 04/26/18 15:50 Albumin 3.9 gm/dL (4.2-5.5) L 04/26/18 15:50 Globulin 2.5 gm/dL 04/26/18 15:50 Albumin/Globulin Ratio 1.6 (1.0-1.8) 04/26/18 15:50 Urine Source CLEAN C 04/26/18 16:30 Urine Color YELLOW 04/26/18 16:30 Urine Clarity SLIGHTLY HAZY (CLEAR) 04/26/18 16:30 Urine pH 7.0 (4.6 - 8.0) 04/26/18 16:30 Ur Specific [place] 1.010 (1.005-1.030) 04/26/18 16:30 Urine Protein NEGATIVE mg/dL (NEGATIVE) 04/26/18 16:30 Urine Glucose (UA) NEGATIVE mg/dL (NEGATIVE) 04/26/18 16:30 Urine Ketones NEGATIVE mg/dL (NEGATIVE) 04/26/18 16:30 Urine Blood NEGATIVE (NEGATIVE) 04/26/18 16:30 Urine Nitrate NEGATIVE (NEGATIVE) 04/26/18 16:30 Urine Bilirubin NEGATIVE (NEGATIVE) 04/26/18 16:30 Urine Urobilinogen 2.0 E.U./dL (0.2 - 1.0) 04/26/18 16:30 Ur Leukocyte Esterase TRACE (NEGATIVE) H 04/26/18 16:30 Urine RBC 5-10 /hpf (0-5) H 04/26/18 16:30 Urine WBC 0-2 /hpf (0-5) 04/26/18 16:30 Ur Epithelial Cells OCCASIONAL /lpf (FEW) 04/26/18 16:30 Urine Bacteria NONE SEEN /hpf (NONE SEEN) 04/26/18 16:30 - Physical Exam Vitals and I&O: Vital Signs Temp 98.8 F 04/28/18 06:06 Pulse 64 04/28/18 11:10 Resp 18 04/28/18 11:10 BP 94/60 04/28/18 06:06 Pulse Ox 100 04/28/18 11:10 Intake & Output 04/27/18 04/28/18 04/28/18 18:59 06:59 18:59 Intake Total 240 Balance 240 Intake: Oral 240 Other: # Voids 1 # Bowel Movements 0 Active Medications: Current Medications Acetaminophen (Tylenol) 650 mg PO Q4HR PRN PRN Reason: Mild Pain / Temp above 100 Stop: 06/25/18 17:53 Acetaminophen (Tylenol) 650 mg PO Q4H PRN PRN Reason: Pain Or Fever above 101 Stop: 06/25/18 18:16 Al Hydrox/Mg Hydrox/Simethicone (Maalox) 30 ml PO Q4HR PRN PRN Reason: GI DISTRESS Stop: 06/25/18 17:53 Al Hydrox/Mg Hydrox/Simethicone (Maalox) 30 ml PO Q4HR PRN PRN Reason: GI DISTRESS Stop: 06/25/18 18:16 Albuterol Sulfate (Albuterol 2.5mg/3ml Neb Ud) 2.5 mg HHN QIDRT [facility] Stop: 06/25/18 18:59 Last Admin: 04/28/18 11:08 Dose: 2.5 mg Albuterol/Ipratropium (Duoneb Neb) 3 ml HHN TIDRT [facility] Stop: 06/25/18 22:59 Last Admin: 04/27/18 15:39 Dose: Not Given Benztropine Mesylate (Cogentin) 0.5 mg PO BID [facility] Stop: 06/26/18 08:59 Last Admin: 04/28/18 08:47 Dose: 0.5 mg Guaifenesin (Robitussin) 200 mg PO Q4HR PRN PRN Reason: Cough or Congestion Stop: 06/25/18 18:16 Haloperidol (Haldol) 5 mg PO BID [facility]; Protocol Stop: 06/27/18 16:59 Haloperidol Decanoate (Haldol Dec) 75 mg IM QMONTH [facility]; Protocol Stop: 07/05/18 08:59 Insulin Aspart (Novolog Insulin Sliding Scale) 2 - 12 units SUBQ ACHS [facility]; Protocol Stop: 06/25/18 20:59 Last Admin: 04/28/18 12:17 Dose: Not Given Ipratropium [place] (Atrovent Neb 0.5mg/2.5ml) 0.5 mg HHN QIDRT [facility] Stop: 06/25/18 18:59 Last Admin: 04/28/18 11:08 Dose: 0.5 mg Lorazepam (Ativan) 0.5 mg PO Q4H PRN; Protocol PRN Reason: Anxiety Stop: 06/25/18 11:59 Magnesium Hydroxide (Milk Of Magnesia) 30 ml PO HS PRN PRN Reason: Constipation Magnesium Hydroxide (Milk Of Magnesia) 30 ml PO HS PRN PRN Reason: Constipation Stop: 06/25/18 18:16 Multivitamins/Vitamin C (Theragran) 1 tab PO DAILY [facility] Stop: 06/26/18 08:59 Last Admin: 04/28/18 08:47 Dose: 1 tab Zolpidem Tartrate (Ambien) 5 mg PO HS PRN PRN Reason: Insomnia Stop: 06/25/18 17:53 Last Admin: 04/27/18 20:52 Dose: 5 mg Zolpidem Tartrate (Ambien) 5 mg PO HS PRN PRN Reason: Insomnia Stop: 06/25/18 18:16 HEENT: NC/AT, PERRLA Neck: Supple Lungs: CTAB Cardiovascular: RRR, Normal S1, Normal S2 Abdomen: soft, non-tender, non-distended, positive bowel sound Neurological: alert Internal Medicine Assmt/Plan - Assessment Assessment: dyslipidemia agitation schiophrenia anxiety dm - Plan Plan: monitor glucose fall precautions cpm
--- NOTE | 2018-04-29 02:47 | Progress Notes ---
DATE: 04/28/2018 PSYCHIATRIC PROGRESS NOTE SUBJECTIVE: Staff was spoken to. The patient is interviewed. Mood is noted to be irritable. Affect is constricted. Insight and judgment noted to be very much impaired. Impulse control is noted to be poor. The patient is screaming and yelling. The patient has paranoid delusions, but denies any command hallucinations. No side effects to medications are noted at this time. ASSESSMENT: The patient is still psychotic. PLAN: To continue the patient with the haloperidol 5 mg b.i.d. and follow the patient up with the supportive therapy. JOB# [id number]
[2018-04-29] MEDS: Albuterol Nebulizer 2.5mg/3mL HHN SCH ×3 (06:51→13:59)
[2018-04-29] MEDS: Ipratropium Neb 0.5 mg/2.5 mL UD HHN SCH ×4 (06:51→20:00)
[2018-04-29] MEDS: INSULIN ASPART SLIDING SCALE 100 UNITS/ML UNIT SUBQ SCH ×4 (07:03→20:45)
[2018-04-29] MEDS: Multivitamin Tab PO SCH (09:39)
--- NOTE | 2018-04-29 10:09 | Internal Medicine Prog Note ---
Internal Medicine Subjective - Subjective Service Date: 04/29/18 Patient is:: awake, verbal, agitated Per staff patient has:: tolerating meds Internal Medicine Objective - Results Result Diagrams: 04/26/18 15:50 04/26/18 15:50 Recent Labs: Laboratory Last Values WBC 5.2 Th/cmm (4.8-10.8) 04/26/18 15:50 RBC 3.98 Mil/cmm (4.30-5.70) L 04/26/18 15:50 Hgb 11.6 gm/dL (12-16) L 04/26/18 15:50 Hct 34.8 % (41.0-60) L 04/26/18 15:50 MCV 87.5 fl (80-99) 04/26/18 15:50 MCH 29.0 pg (26.0-30.0) 04/26/18 15:50 MCHC Differential 33.2 pg (28.0-36.0) 04/26/18 15:50 RDW 12.2 % (11.5-20.0) 04/26/18 15:50 Plt Count 171 Th/cmm (150-400) 04/26/18 15:50 MPV 7.6 fl 04/26/18 15:50 Neutrophils % 73.8 % (40.0-80.0) 04/26/18 15:50 Lymphocytes % 17.1 % (20.0-50.0) L 04/26/18 15:50 Monocytes % 5.2 % (2.0-10.0) 04/26/18 15:50 Eosinophils % 3.7 % (0.0-5.0) 04/26/18 15:50 Basophils % 0.2 % (0.0-2.0) 04/26/18 15:50 Sodium 135 mEq/L (136-145) L 04/26/18 15:50 Potassium 3.8 mEq/L (3.5-5.1) 04/26/18 15:50 Chloride 101 mEq/L (98-107) 04/26/18 15:50 Carbon Dioxide 29.9 mEq/L (21.0-31.0) 04/26/18 15:50 Anion Gap 7.9 (7.0-16.0) 04/26/18 15:50 BUN 15 mg/dL (7-25) 04/26/18 15:50 Creatinine 0.8 mg/dL (0.7-1.3) 04/26/18 15:50 Est GFR ( Amer) > 60.0 ml/min (>90) 04/26/18 15:50 Est GFR (Non-Af Amer) > 60.0 ml/min 04/26/18 15:50 BUN/Creatinine Ratio 18.8 04/26/18 15:50 Glucose 98 mg/dL (70-105) 04/26/18 15:50 Calcium 9.3 mg/dL (8.6-10.3) 04/26/18 15:50 Total Bilirubin 0.5 mg/dL (0.3-1.0) 04/26/18 15:50 AST 18 U/L (13-39) 04/26/18 15:50 ALT 11 U/L (7-52) 04/26/18 15:50 Alkaline Phosphatase 49 U/L (34-104) 04/26/18 15:50 Total Protein 6.4 gm/dL (6.0-8.3) 04/26/18 15:50 Albumin 3.9 gm/dL (4.2-5.5) L 04/26/18 15:50 Globulin 2.5 gm/dL 04/26/18 15:50 Albumin/Globulin Ratio 1.6 (1.0-1.8) 04/26/18 15:50 Urine Source CLEAN C 04/26/18 16:30 Urine Color YELLOW 04/26/18 16:30 Urine Clarity SLIGHTLY HAZY (CLEAR) 04/26/18 16:30 Urine pH 7.0 (4.6 - 8.0) 04/26/18 16:30 Ur Specific [place] 1.010 (1.005-1.030) 04/26/18 16:30 Urine Protein NEGATIVE mg/dL (NEGATIVE) 04/26/18 16:30 Urine Glucose (UA) NEGATIVE mg/dL (NEGATIVE) 04/26/18 16:30 Urine Ketones NEGATIVE mg/dL (NEGATIVE) 04/26/18 16:30 Urine Blood NEGATIVE (NEGATIVE) 04/26/18 16:30 Urine Nitrate NEGATIVE (NEGATIVE) 04/26/18 16:30 Urine Bilirubin NEGATIVE (NEGATIVE) 04/26/18 16:30 Urine Urobilinogen 2.0 E.U./dL (0.2 - 1.0) 04/26/18 16:30 Ur Leukocyte Esterase TRACE (NEGATIVE) H 04/26/18 16:30 Urine RBC 5-10 /hpf (0-5) H 04/26/18 16:30 Urine WBC 0-2 /hpf (0-5) 04/26/18 16:30 Ur Epithelial Cells OCCASIONAL /lpf (FEW) 04/26/18 16:30 Urine Bacteria NONE SEEN /hpf (NONE SEEN) 04/26/18 16:30 - Physical Exam Vitals and I&O: Vital Signs Temp 97.2 F 04/29/18 06:47 Pulse 69 04/29/18 06:51 Resp 18 04/29/18 06:51 BP 100/50 04/29/18 06:47 Pulse Ox 98 04/29/18 06:51 Intake & Output 04/28/18 04/29/18 04/29/18 18:59 06:59 18:59 Intake Total 180 Balance 180 Intake: Oral 180 Other: # Voids 6 # Bowel Movements 0 Active Medications: Current Medications Acetaminophen (Tylenol) 650 mg PO Q4HR PRN PRN Reason: Mild Pain / Temp above 100 Stop: 06/25/18 17:53 Acetaminophen (Tylenol) 650 mg PO Q4H PRN PRN Reason: Pain Or Fever above 101 Stop: 06/25/18 18:16 Al Hydrox/Mg Hydrox/Simethicone (Maalox) 30 ml PO Q4HR PRN PRN Reason: GI DISTRESS Stop: 06/25/18 17:53 Al Hydrox/Mg Hydrox/Simethicone (Maalox) 30 ml PO Q4HR PRN PRN Reason: GI DISTRESS Stop: 06/25/18 18:16 Albuterol Sulfate (Albuterol 2.5mg/3ml Neb Ud) 2.5 mg HHN QIDRT [facility] Stop: 06/25/18 18:59 Last Admin: 04/29/18 06:51 Dose: 2.5 mg Albuterol/Ipratropium (Duoneb Neb) 3 ml HHN TIDRT [facility] Stop: 06/25/18 22:59 Last Admin: 04/27/18 15:39 Dose: Not Given Benztropine Mesylate (Cogentin) 0.5 mg PO BID [facility] Stop: 06/26/18 08:59 Last Admin: 04/29/18 09:39 Dose: 0.5 mg Guaifenesin (Robitussin) 200 mg PO Q4HR PRN PRN Reason: Cough or Congestion Stop: 06/25/18 18:16 Haloperidol (Haldol) 5 mg PO BID [facility]; Protocol Stop: 06/27/18 16:59 Last Admin: 04/29/18 09:39 Dose: 5 mg Haloperidol Decanoate (Haldol Dec) 75 mg IM QMONTH [facility]; Protocol Stop: 07/05/18 08:59 Insulin Aspart (Novolog Insulin Sliding Scale) 2 - 12 units SUBQ ACHS [facility]; Protocol Stop: 06/25/18 20:59 Last Admin: 04/29/18 07:03 Dose: Not Given Ipratropium [place] (Atrovent Neb 0.5mg/2.5ml) 0.5 mg HHN QIDRT [facility] Stop: 06/25/18 18:59 Last Admin: 04/29/18 06:51 Dose: 0.5 mg Lorazepam (Ativan) 0.5 mg PO Q4H PRN; Protocol PRN Reason: Anxiety Stop: 06/25/18 11:59 Last Admin: 04/28/18 16:59 Dose: 0.5 mg Magnesium Hydroxide (Milk Of Magnesia) 30 ml PO HS PRN PRN Reason: Constipation Magnesium Hydroxide (Milk Of Magnesia) 30 ml PO HS PRN PRN Reason: Constipation Stop: 06/25/18 18:16 Multivitamins/Vitamin C (Theragran) 1 tab PO DAILY [facility] Stop: 06/26/18 08:59 Last Admin: 04/29/18 09:39 Dose: 1 tab Zolpidem Tartrate (Ambien) 5 mg PO HS PRN PRN Reason: Insomnia Stop: 06/25/18 17:53 Last Admin: 04/28/18 21:47 Dose: 5 mg Zolpidem Tartrate (Ambien) 5 mg PO HS PRN PRN Reason: Insomnia Stop: 06/25/18 18:16 HEENT: NC/AT, PERRLA Neck: Supple Lungs: CTAB Cardiovascular: RRR, Normal S1, Normal S2 Abdomen: soft, non-tender, non-distended, positive bowel sound Neurological: alert Internal Medicine Assmt/Plan - Assessment Assessment: dyslipidemia agitation schiophrenia anxiety dm - Plan Plan: monitor glucose fall precautions cpm
--- NOTE | 2018-04-29 12:05 | Consultation ---
DATE OF CONSULTATION: 04/28/2018 REFERRING PHYSICIAN: Hannah Bishop MD TYPE OF CONSULTATION: Psychology. HISTORY OF PRESENT ILLNESS: The patient is a 57-year-old -[place] male. The patient is a resident of [facility]. The following is by review of the medical record and by the patient's self-report. The patient is being admitted due to acute agitation and aggressive behavior towards the staff at his placement. The patient has multiple previous hospitalizations and a long history of schizophrenia. The staff at the patient's facility reported he has been aggressive towards staff members and uncontainable and unredirectable. Therefore, the patient was transferred here for stabilization. PAST MEDICAL HISTORY: Please see history and physical by Dr. Partida. PAST PSYCHIATRIC HISTORY: The patient has multiple previous hospitalizations. The patient's most recent hospitalization here on the geropsychiatric unit was 11/2017. The patient is under the care of a psychiatrist at his placement. The patient has a long history of schizophrenia, chronic paranoid type. SUBSTANCE ABUSE HISTORY: The patient denied any history. PSYCHOSOCIAL HISTORY: The patient does not answer questions about occupational or educational history or denominational affiliation. The patient denies any history of physical or sexual abuse. The patient denies any current legal problems. The patient states that he has never been and has no children and there is no family involvement in his care. The patient wishes to return to his assisted facility and is demanding to be discharged. MENTAL STATUS EXAMINATION: The patient appears to be his stated age. Attitude is superficially cooperative. Eye contact is fair to poor. Speech is pressured. Thought is confused as well as markedly tangential along with suspiciousness. The patient denied any auditory or visual hallucinations; however, there is evidence of paranoid ideation. The patient denied any suicidal ideation, plan or intention. The patient's behavior has been difficult to redirect with intermittent episodes of agitation. The patient's impulse control is impaired. Concentration is fair to poor. The patient's sensorium is alert and oriented to person and place. The patient did not participate in the memory assessment. The patient did not participate in the interpretation of proverbs. Insight is impaired. Judgment is impaired. DIAGNOSTIC IMPRESSION: AXIS I: History of schizophrenia, chronic paranoid type. AXIS II: Deferred. AXIS III: Per Dr. Partida. TREATMENT PLAN: The patient has been seen by Dr. Bishop for psychiatric evaluation and for the management of the patient's psychotropic medications. We will provide supportive psychotherapy to include reality orientation, differentiation and integration. We will provide limit setting and de-escalation as well as cognitive and behavioral refocusing and redirection. We will encourage the patient to be able to demonstrate emotional and self-control prior to his discharge. We will provide coping mechanisms for chronic severe mental illness. The attending psychiatrist indicates the patient is being continued on Haldol and Cogentin. The patient will be followed at [facility]. Thank you, Dr. Bishop, for this consult and the opportunity to participate in this patient's care. JOB# [id number] YU
--- NOTE | 2018-04-29 14:18 | Progress Notes ---
DATE: 04/29/2018 SUBJECTIVE: Staff was spoken to. The patient is interviewed. Mood is noted to be irritable. Affect is constricted. Insight and judgment noted to be still impaired. Impulse control is noted to be limited. The patient has been pacing on the unit. Currently, pacing is on 5 mg twice a day with the haloperidol and has been able to tolerate the medications. No side effects to the medications are noted and the patient is reported to have had Haldol ____ due on the 13 of this month. ASSESSMENT: The patient is still psychotic and impulsive. PLAN: To continue the patient with the supportive therapy and followup. JOB# [id number]
[2018-04-30] MEDS: INSULIN ASPART SLIDING SCALE 100 UNITS/ML UNIT SUBQ SCH ×4 (06:44→21:11)
[2018-04-30] MEDS: Ipratropium Neb 0.5 mg/2.5 mL UD HHN SCH ×3 (07:15→19:33)
[2018-04-30] MEDS: Albuterol Nebulizer 2.5mg/3mL HHN SCH ×4 (07:15→19:33)
[2018-04-30] MEDS: Albuterol/Ipratropium Neb 3 ML AERS HHN SCH (07:44)
[2018-04-30] MEDS: Multivitamin Tab PO SCH (09:22)
--- NOTE | 2018-05-01 02:04 | Progress Notes ---
DATE: 04/30/2018 PSYCHIATRIC PROGRESS NOTE SUBJECTIVE: Staff was spoken to. The patient is interviewed. Mood is noted to be irritable. Affect is constricted. Insight and judgment at this time are noted to be very much impaired. Impulse control is noted to be poor. Coping skills are also noted to be very poor. The patient has been pacing most of the time on the unit. No side effects to the medications are noted. The patient has been having difficult time to cope with the stress. The patient is pacing most of the time on the unit. No side effects to the medications are noted. ASSESSMENT: The patient is still very impulsive. PLAN: To continue the patient with supportive therapy. I encouraged the patient to verbalize the concerns rather than to act out. JOB# [id number]
[2018-05-01] MEDS: INSULIN ASPART SLIDING SCALE 100 UNITS/ML UNIT SUBQ SCH ×4 (06:32→21:54)
[2018-05-01] MEDS: Albuterol Nebulizer 2.5mg/3mL HHN SCH ×4 (07:23→19:46)
[2018-05-01] MEDS: Ipratropium Neb 0.5 mg/2.5 mL UD HHN SCH ×4 (07:23→19:56)
[2018-05-01] MEDS: Albuterol/Ipratropium Neb 3 ML AERS HHN SCH ×2 (07:24→15:43)
[2018-05-01] MEDS: Multivitamin Tab PO SCH (10:42)
--- NOTE | 2018-05-01 13:24 | Internal Medicine Prog Note ---
Internal Medicine Subjective - Subjective Service Date: 05/01/18 Patient is:: awake, verbal, agitated Per staff patient has:: tolerating meds Internal Medicine Objective - Results Result Diagrams: 04/26/18 15:50 04/26/18 15:50 Recent Labs: Laboratory Last Values WBC 5.2 Th/cmm (4.8-10.8) 04/26/18 15:50 RBC 3.98 Mil/cmm (4.30-5.70) L 04/26/18 15:50 Hgb 11.6 gm/dL (12-16) L 04/26/18 15:50 Hct 34.8 % (41.0-60) L 04/26/18 15:50 MCV 87.5 fl (80-99) 04/26/18 15:50 MCH 29.0 pg (26.0-30.0) 04/26/18 15:50 MCHC Differential 33.2 pg (28.0-36.0) 04/26/18 15:50 RDW 12.2 % (11.5-20.0) 04/26/18 15:50 Plt Count 171 Th/cmm (150-400) 04/26/18 15:50 MPV 7.6 fl 04/26/18 15:50 Neutrophils % 73.8 % (40.0-80.0) 04/26/18 15:50 Lymphocytes % 17.1 % (20.0-50.0) L 04/26/18 15:50 Monocytes % 5.2 % (2.0-10.0) 04/26/18 15:50 Eosinophils % 3.7 % (0.0-5.0) 04/26/18 15:50 Basophils % 0.2 % (0.0-2.0) 04/26/18 15:50 Sodium 135 mEq/L (136-145) L 04/26/18 15:50 Potassium 3.8 mEq/L (3.5-5.1) 04/26/18 15:50 Chloride 101 mEq/L (98-107) 04/26/18 15:50 Carbon Dioxide 29.9 mEq/L (21.0-31.0) 04/26/18 15:50 Anion Gap 7.9 (7.0-16.0) 04/26/18 15:50 BUN 15 mg/dL (7-25) 04/26/18 15:50 Creatinine 0.8 mg/dL (0.7-1.3) 04/26/18 15:50 Est GFR ( Amer) > 60.0 ml/min (>90) 04/26/18 15:50 Est GFR (Non-Af Amer) > 60.0 ml/min 04/26/18 15:50 BUN/Creatinine Ratio 18.8 04/26/18 15:50 Glucose 98 mg/dL (70-105) 04/26/18 15:50 Calcium 9.3 mg/dL (8.6-10.3) 04/26/18 15:50 Total Bilirubin 0.5 mg/dL (0.3-1.0) 04/26/18 15:50 AST 18 U/L (13-39) 04/26/18 15:50 ALT 11 U/L (7-52) 04/26/18 15:50 Alkaline Phosphatase 49 U/L (34-104) 04/26/18 15:50 Total Protein 6.4 gm/dL (6.0-8.3) 04/26/18 15:50 Albumin 3.9 gm/dL (4.2-5.5) L 04/26/18 15:50 Globulin 2.5 gm/dL 04/26/18 15:50 Albumin/Globulin Ratio 1.6 (1.0-1.8) 04/26/18 15:50 Urine Source CLEAN C 04/26/18 16:30 Urine Color YELLOW 04/26/18 16:30 Urine Clarity SLIGHTLY HAZY (CLEAR) 04/26/18 16:30 Urine pH 7.0 (4.6 - 8.0) 04/26/18 16:30 Ur Specific [place] 1.010 (1.005-1.030) 04/26/18 16:30 Urine Protein NEGATIVE mg/dL (NEGATIVE) 04/26/18 16:30 Urine Glucose (UA) NEGATIVE mg/dL (NEGATIVE) 04/26/18 16:30 Urine Ketones NEGATIVE mg/dL (NEGATIVE) 04/26/18 16:30 Urine Blood NEGATIVE (NEGATIVE) 04/26/18 16:30 Urine Nitrate NEGATIVE (NEGATIVE) 04/26/18 16:30 Urine Bilirubin NEGATIVE (NEGATIVE) 04/26/18 16:30 Urine Urobilinogen 2.0 E.U./dL (0.2 - 1.0) 04/26/18 16:30 Ur Leukocyte Esterase TRACE (NEGATIVE) H 04/26/18 16:30 Urine RBC 5-10 /hpf (0-5) H 04/26/18 16:30 Urine WBC 0-2 /hpf (0-5) 04/26/18 16:30 Ur Epithelial Cells OCCASIONAL /lpf (FEW) 04/26/18 16:30 Urine Bacteria NONE SEEN /hpf (NONE SEEN) 04/26/18 16:30 - Physical Exam Vitals and I&O: Vital Signs Temp 99.8 F 04/30/18 22:00 Pulse 54 05/01/18 11:34 Resp 18 05/01/18 11:34 BP 117/75 04/30/18 22:00 Pulse Ox 100 05/01/18 11:34 Intake & Output 04/30/18 05/01/18 05/01/18 18:59 06:59 18:59 Intake Total 900 500 Balance 900 500 Intake: Oral 900 500 Other: # Voids 4 5 # Bowel Movements 1 Active Medications: Current Medications Acetaminophen (Tylenol) 650 mg PO Q4HR PRN PRN Reason: Mild Pain / Temp above 100 Stop: 06/25/18 17:53 Acetaminophen (Tylenol) 650 mg PO Q4H PRN PRN Reason: Pain Or Fever above 101 Stop: 06/25/18 18:16 Al Hydrox/Mg Hydrox/Simethicone (Maalox) 30 ml PO Q4HR PRN PRN Reason: GI DISTRESS Stop: 06/25/18 17:53 Al Hydrox/Mg Hydrox/Simethicone (Maalox) 30 ml PO Q4HR PRN PRN Reason: GI DISTRESS Stop: 06/25/18 18:16 Albuterol Sulfate (Albuterol 2.5mg/3ml Neb Ud) 2.5 mg HHN QIDRT [facility] Stop: 06/25/18 18:59 Last Admin: 05/01/18 11:34 Dose: 2.5 mg Albuterol/Ipratropium (Duoneb Neb) 3 ml HHN TIDRT [facility] Stop: 06/25/18 22:59 Last Admin: 05/01/18 07:24 Dose: Not Given Benztropine Mesylate (Cogentin) 0.5 mg PO BID [facility] Stop: 06/26/18 08:59 Last Admin: 05/01/18 10:42 Dose: 0.5 mg Guaifenesin (Robitussin) 200 mg PO Q4HR PRN PRN Reason: Cough or Congestion Stop: 06/25/18 18:16 Haloperidol (Haldol) 5 mg PO BID [facility]; Protocol Stop: 06/27/18 16:59 Last Admin: 05/01/18 10:42 Dose: 5 mg Haloperidol Decanoate (Haldol Dec) 75 mg IM QMONTH [facility]; Protocol Stop: 07/05/18 08:59 Insulin Aspart (Novolog Insulin Sliding Scale) 2 - 12 units SUBQ ACHS [facility]; Protocol Stop: 06/25/18 20:59 Last Admin: 05/01/18 06:32 Dose: Not Given Ipratropium [place] (Atrovent Neb 0.5mg/2.5ml) 0.5 mg HHN QIDRT [facility] Stop: 06/25/18 18:59 Last Admin: 05/01/18 11:34 Dose: 0.5 mg Lorazepam (Ativan) 0.5 mg PO Q4H PRN; Protocol PRN Reason: Anxiety Stop: 06/25/18 11:59 Last Admin: 04/30/18 11:45 Dose: 0.5 mg Magnesium Hydroxide (Milk Of Magnesia) 30 ml PO HS PRN PRN Reason: Constipation Magnesium Hydroxide (Milk Of Magnesia) 30 ml PO HS PRN PRN Reason: Constipation Stop: 06/25/18 18:16 Multivitamins/Vitamin C (Theragran) 1 tab PO DAILY [facility] Stop: 06/26/18 08:59 Last Admin: 05/01/18 10:42 Dose: Not Given Zolpidem Tartrate (Ambien) 5 mg PO HS PRN PRN Reason: Insomnia Stop: 06/25/18 17:53 Last Admin: 04/28/18 21:47 Dose: 5 mg Zolpidem Tartrate (Ambien) 5 mg PO HS PRN PRN Reason: Insomnia Stop: 06/25/18 18:16 Last Admin: 04/29/18 20:56 Dose: 5 mg HEENT: NC/AT, PERRLA Neck: Supple Lungs: CTAB Cardiovascular: RRR, Normal S1, Normal S2 Abdomen: soft, non-tender, non-distended, positive bowel sound Neurological: alert Internal Medicine Assmt/Plan - Assessment Assessment: dyslipidemia agitation schiophrenia anxiety dm - Plan Plan: monitor glucose fall precautions cpm Nutritional Asmnt/Malnutr-PDOC - Dietary Evaluation Malnutrition Findings (Please click <Entered> for more info): Nutritional Asmnt/Malnutrition Start: 04/29/18 14: 40 Text: Status: Complete Freq: Protocol: Document 04/29/18 14:40 [email or web address] (Rec: 04/29/18 14:45 LCHENG [email or web address]) Nutritional Asmnt/Malnutrition Patient General Information Nutritional Screening Moderate Risk Diagnosis psychosis Pertinent Medical Hx/Surgical Hx dysilipiemia, anxiety, agitation, schizophrenia, DM Subjective Information Pt seen went for smoking after lunch. Per EMR, PO intake 100 %. Current Diet Order/ Nutrition Support [facility] soft chopped CCHO 60gm Pertinent Medications novolog, theragran Pertinent Labs 04/26 Na 135, Alb 3.9 Nutritional Hx/Data Height 5 ft 6 in Height (Calculated Centimeters) 167.6 Current Weight (lbs) 127 lb Weight (Calculated Kilograms) 57.6 Weight (Calculated Grams) 67751.2 [place] Body Weight 142 Body Mass Index (BMI) 20.5 Weight Status Approriate GI Symptoms GI Symptoms None Last BM 04/26 Difficult in: None Skin Integrity/Comment: intact Current %PO Good (75-100%) Estimated Nutritional Goals BEE in Kcals: Using Current wt Calories/Kcals/Kg 25-30 Kcals Calculated [id number] Protein: Using Current wt Protein g/k Protein Calculated 58 Fluid: ml 1450-1740ml (1ml/kcal) Nutritional Problem No current Nutrition Prob Problem N/A Malnutrition Alert Is there a minimum of two criteria No selected? Query Text:Check all the applicable criteria. A minimum of two criteria are recommended for diagnosis of either severe or non-severe malnutrition. Malnutrition Related to Morbid Obesity Malnutrition related to morbid obesity No Intervention/Recommendation Comments 1. Consider removing CCHO 60gm diet restriction if glucose continue WNL 2. Monitor PO intake, wt, labs and skin integrity 3. F/U as low risk in 7 days, 05/08 Expected Outcomes/Goals Expected Outcomes/Goals 1. PO intake to meet at least 75% of nutritional needs. 2. Wt stability, skin to remain intact, labs to approach WNL.
--- NOTE | 2018-05-01 22:54 | Progress Notes ---
DATE: 05/01/2018 PSYCHIATRIC PROGRESS NOTE SUBJECTIVE: Staff was spoken to. The patient is interviewed. Mood is noted to be dysphoric. Coping skills are noted to be poor. Sleep and appetite also noted to be poor. The patient is currently on Risperdal and the patient is currently having difficult time to cope with the stress. The patient is pacing on the unit. The patient has been demanding that he should be discharged because he has been here for too long. The patient has been on Haldol and the Haldol Decanoate is due on the of this month and the patient is explained of it and then patient is stating that he will comply with the treatment and then be there until then. The patient at this time is noted to be very paranoid and has been having difficult time to cope with the stress. ASSESSMENT: The patient is still psychotic. PLAN: To continue the patient with the supportive therapy and followup. JOB# [id number]
[2018-05-02] MEDS: INSULIN ASPART SLIDING SCALE 100 UNITS/ML UNIT SUBQ SCH ×4 (06:30→20:26)
[2018-05-02] MEDS: Ipratropium Neb 0.5 mg/2.5 mL UD HHN SCH ×4 (07:01→19:27)
[2018-05-02] MEDS: Albuterol Nebulizer 2.5mg/3mL HHN SCH ×5 (07:01→19:27)
[2018-05-02] MEDS: Multivitamin Tab PO SCH (09:37)
--- NOTE | 2018-05-02 16:31 | Internal Medicine Prog Note ---
Internal Medicine Subjective - Subjective Service Date: 05/02/18 Patient is:: awake, verbal, agitated Per staff patient has:: tolerating meds Internal Medicine Objective - Results Result Diagrams: 04/26/18 15:50 04/26/18 15:50 Recent Labs: Laboratory Last Values WBC 5.2 Th/cmm (4.8-10.8) 04/26/18 15:50 RBC 3.98 Mil/cmm (4.30-5.70) L 04/26/18 15:50 Hgb 11.6 gm/dL (12-16) L 04/26/18 15:50 Hct 34.8 % (41.0-60) L 04/26/18 15:50 MCV 87.5 fl (80-99) 04/26/18 15:50 MCH 29.0 pg (26.0-30.0) 04/26/18 15:50 MCHC Differential 33.2 pg (28.0-36.0) 04/26/18 15:50 RDW 12.2 % (11.5-20.0) 04/26/18 15:50 Plt Count 171 Th/cmm (150-400) 04/26/18 15:50 MPV 7.6 fl 04/26/18 15:50 Neutrophils % 73.8 % (40.0-80.0) 04/26/18 15:50 Lymphocytes % 17.1 % (20.0-50.0) L 04/26/18 15:50 Monocytes % 5.2 % (2.0-10.0) 04/26/18 15:50 Eosinophils % 3.7 % (0.0-5.0) 04/26/18 15:50 Basophils % 0.2 % (0.0-2.0) 04/26/18 15:50 Sodium 135 mEq/L (136-145) L 04/26/18 15:50 Potassium 3.8 mEq/L (3.5-5.1) 04/26/18 15:50 Chloride 101 mEq/L (98-107) 04/26/18 15:50 Carbon Dioxide 29.9 mEq/L (21.0-31.0) 04/26/18 15:50 Anion Gap 7.9 (7.0-16.0) 04/26/18 15:50 BUN 15 mg/dL (7-25) 04/26/18 15:50 Creatinine 0.8 mg/dL (0.7-1.3) 04/26/18 15:50 Est GFR ( Amer) > 60.0 ml/min (>90) 04/26/18 15:50 Est GFR (Non-Af Amer) > 60.0 ml/min 04/26/18 15:50 BUN/Creatinine Ratio 18.8 04/26/18 15:50 Glucose 98 mg/dL (70-105) 04/26/18 15:50 Calcium 9.3 mg/dL (8.6-10.3) 04/26/18 15:50 Total Bilirubin 0.5 mg/dL (0.3-1.0) 04/26/18 15:50 AST 18 U/L (13-39) 04/26/18 15:50 ALT 11 U/L (7-52) 04/26/18 15:50 Alkaline Phosphatase 49 U/L (34-104) 04/26/18 15:50 Total Protein 6.4 gm/dL (6.0-8.3) 04/26/18 15:50 Albumin 3.9 gm/dL (4.2-5.5) L 04/26/18 15:50 Globulin 2.5 gm/dL 04/26/18 15:50 Albumin/Globulin Ratio 1.6 (1.0-1.8) 04/26/18 15:50 Urine Source CLEAN C 04/26/18 16:30 Urine Color YELLOW 04/26/18 16:30 Urine Clarity SLIGHTLY HAZY (CLEAR) 04/26/18 16:30 Urine pH 7.0 (4.6 - 8.0) 04/26/18 16:30 Ur Specific [place] 1.010 (1.005-1.030) 04/26/18 16:30 Urine Protein NEGATIVE mg/dL (NEGATIVE) 04/26/18 16:30 Urine Glucose (UA) NEGATIVE mg/dL (NEGATIVE) 04/26/18 16:30 Urine Ketones NEGATIVE mg/dL (NEGATIVE) 04/26/18 16:30 Urine Blood NEGATIVE (NEGATIVE) 04/26/18 16:30 Urine Nitrate NEGATIVE (NEGATIVE) 04/26/18 16:30 Urine Bilirubin NEGATIVE (NEGATIVE) 04/26/18 16:30 Urine Urobilinogen 2.0 E.U./dL (0.2 - 1.0) 04/26/18 16:30 Ur Leukocyte Esterase TRACE (NEGATIVE) H 04/26/18 16:30 Urine RBC 5-10 /hpf (0-5) H 04/26/18 16:30 Urine WBC 0-2 /hpf (0-5) 04/26/18 16:30 Ur Epithelial Cells OCCASIONAL /lpf (FEW) 04/26/18 16:30 Urine Bacteria NONE SEEN /hpf (NONE SEEN) 04/26/18 16:30 - Physical Exam Vitals and I&O: Vital Signs Temp 99.1 F 05/02/18 06:45 Pulse 76 05/02/18 14:49 Resp 18 05/02/18 14:49 BP 132/67 05/02/18 06:45 Pulse Ox 99 05/02/18 14:49 Intake & Output 05/01/18 05/02/18 05/02/18 18:59 06:59 18:59 Intake Total 500 Balance 500 Intake: Oral 500 Other: # Voids 5 # Bowel Movements 0 Active Medications: Current Medications Acetaminophen (Tylenol) 650 mg PO Q4HR PRN PRN Reason: Mild Pain / Temp above 100 Stop: 06/25/18 17:53 Acetaminophen (Tylenol) 650 mg PO Q4H PRN PRN Reason: Pain Or Fever above 101 Stop: 06/25/18 18:16 Al Hydrox/Mg Hydrox/Simethicone (Maalox) 30 ml PO Q4HR PRN PRN Reason: GI DISTRESS Stop: 06/25/18 17:53 Al Hydrox/Mg Hydrox/Simethicone (Maalox) 30 ml PO Q4HR PRN PRN Reason: GI DISTRESS Stop: 06/25/18 18:16 Albuterol Sulfate (Albuterol 2.5mg/3ml Neb Ud) 2.5 mg HHN QIDRT [facility] Stop: 06/25/18 18:59 Last Admin: 05/02/18 15:00 Dose: 2.5 mg Albuterol/Ipratropium (Duoneb Neb) 3 ml HHN TIDRT [facility] Stop: 06/25/18 22:59 Last Admin: 05/01/18 15:43 Dose: Not Given Benztropine Mesylate (Cogentin) 0.5 mg PO BID [facility] Stop: 06/26/18 08:59 Last Admin: 05/02/18 09:37 Dose: 0.5 mg Guaifenesin (Robitussin) 200 mg PO Q4HR PRN PRN Reason: Cough or Congestion Stop: 06/25/18 18:16 Haloperidol (Haldol) 5 mg PO BID [facility]; Protocol Stop: 06/27/18 16:59 Last Admin: 05/02/18 09:37 Dose: 5 mg Haloperidol Decanoate (Haldol Dec) 75 mg IM QMONTH [facility]; Protocol Stop: 07/05/18 08:59 Insulin Aspart (Novolog Insulin Sliding Scale) 2 - 12 units SUBQ ACHS [facility]; Protocol Stop: 06/25/18 20:59 Last Admin: 05/02/18 11:39 Dose: Not Given Ipratropium [place] (Atrovent Neb 0.5mg/2.5ml) 0.5 mg HHN QIDRT [facility] Stop: 06/25/18 18:59 Last Admin: 05/02/18 14:47 Dose: 0.5 mg Lorazepam (Ativan) 0.5 mg PO Q4H PRN; Protocol PRN Reason: Anxiety Stop: 06/25/18 11:59 Last Admin: 05/02/18 09:37 Dose: 0.5 mg Magnesium Hydroxide (Milk Of Magnesia) 30 ml PO HS PRN PRN Reason: Constipation Magnesium Hydroxide (Milk Of Magnesia) 30 ml PO HS PRN PRN Reason: Constipation Stop: 06/25/18 18:16 Multivitamins/Vitamin C (Theragran) 1 tab PO DAILY [facility] Stop: 06/26/18 08:59 Last Admin: 05/02/18 09:37 Dose: 1 tab Zolpidem Tartrate (Ambien) 5 mg PO HS PRN PRN Reason: Insomnia Stop: 06/25/18 17:53 Last Admin: 04/28/18 21:47 Dose: 5 mg Zolpidem Tartrate (Ambien) 5 mg PO HS PRN PRN Reason: Insomnia Stop: 06/25/18 18:16 Last Admin: 04/29/18 20:56 Dose: 5 mg HEENT: NC/AT, PERRLA Neck: Supple Lungs: CTAB Cardiovascular: RRR, Normal S1, Normal S2 Abdomen: soft, non-tender, non-distended, positive bowel sound Neurological: alert Internal Medicine Assmt/Plan - Assessment Assessment: dyslipidemia agitation schiophrenia anxiety dm - Plan Plan: monitor glucose fall precautions cpm Nutritional Asmnt/Malnutr-PDOC - Dietary Evaluation Malnutrition Findings (Please click <Entered> for more info): Nutritional Asmnt/Malnutrition Start: 04/29/18 14: 40 Text: Status: Complete Freq: Protocol: Document 04/29/18 14:40 [email or web address] (Rec: 04/29/18 14:45 LCHENG [email or web address]) Nutritional Asmnt/Malnutrition Patient General Information Nutritional Screening Moderate Risk Diagnosis psychosis Pertinent Medical Hx/Surgical Hx dysilipiemia, anxiety, agitation, schizophrenia, DM Subjective Information Pt seen went for smoking after lunch. Per EMR, PO intake 100 %. Current Diet Order/ Nutrition Support [facility] soft chopped CCHO 60gm Pertinent Medications novolog, theragran Pertinent Labs 04/26 Na 135, Alb 3.9 Nutritional Hx/Data Height 5 ft 6 in Height (Calculated Centimeters) 167.6 Current Weight (lbs) 127 lb Weight (Calculated Kilograms) 57.6 Weight (Calculated Grams) 06012.2 [place] Body Weight 142 Body Mass Index (BMI) 20.5 Weight Status Approriate GI Symptoms GI Symptoms None Last BM 04/26 Difficult in: None Skin Integrity/Comment: intact Current %PO Good (75-100%) Estimated Nutritional Goals BEE in Kcals: Using Current wt Calories/Kcals/Kg 25-30 Kcals Calculated 7393-8248 Protein: Using Current wt Protein g/k Protein Calculated 58 Fluid: ml 1450-1740ml (1ml/kcal) Nutritional Problem No current Nutrition Prob Problem N/A Malnutrition Alert Is there a minimum of two criteria No selected? Query Text:Check all the applicable criteria. A minimum of two criteria are recommended for diagnosis of either severe or non-severe malnutrition. Malnutrition Related to Morbid Obesity Malnutrition related to morbid obesity No Intervention/Recommendation Comments 1. Consider removing CCHO 60gm diet restriction if glucose continue WNL 2. Monitor PO intake, wt, labs and skin integrity 3. F/U as low risk in 7 days, 05/08 Expected Outcomes/Goals Expected Outcomes/Goals 1. PO intake to meet at least 75% of nutritional needs. 2. Wt stability, skin to remain intact, labs to approach WNL.
--- NOTE | 2018-05-03 01:44 | Progress Notes ---
DATE: 05/02/2018 SUBJECTIVE: Staff was spoken to. The patient is interviewed. Mood is noted to be irritable. Affect is constricted. Insight and judgment at this time are noted to be still impaired. Impulse control is noted to be poor. Coping skills are noted to be very poor. The patient has been having difficult time to cope with the stress. No side effects to the medications are noted. The patient is insisting that he has been doing fairly well and needs to be discharged today. The patient's coping skills at this time are noted to be very poor. The patient is not able to contract for safety and no side effect of the Haldol are noted. ASSESSMENT: The patient is still psychotic. PLAN: To continue the patient with the supportive therapy, encouraged the patient to verbalize the concerns rather than to act out. JOB# [id number]
[2018-05-03] MEDS: Ipratropium Neb 0.5 mg/2.5 mL UD HHN SCH ×3 (06:24→14:51)
[2018-05-03] MEDS: Albuterol Nebulizer 2.5mg/3mL HHN SCH ×2 (06:24→10:34)
[2018-05-03] MEDS: INSULIN ASPART SLIDING SCALE 100 UNITS/ML UNIT SUBQ SCH ×4 (06:40→21:31)
[2018-05-03] MEDS: Multivitamin Tab PO SCH (09:37)
--- NOTE | 2018-05-03 12:16 | Internal Medicine Prog Note ---
Internal Medicine Subjective - Subjective Service Date: 05/03/18 Patient is:: awake, verbal, agitated Per staff patient has:: tolerating meds Internal Medicine Objective - Results Result Diagrams: 04/26/18 15:50 04/26/18 15:50 Recent Labs: Laboratory Last Values WBC 5.2 Th/cmm (4.8-10.8) 04/26/18 15:50 RBC 3.98 Mil/cmm (4.30-5.70) L 04/26/18 15:50 Hgb 11.6 gm/dL (12-16) L 04/26/18 15:50 Hct 34.8 % (41.0-60) L 04/26/18 15:50 MCV 87.5 fl (80-99) 04/26/18 15:50 MCH 29.0 pg (26.0-30.0) 04/26/18 15:50 MCHC Differential 33.2 pg (28.0-36.0) 04/26/18 15:50 RDW 12.2 % (11.5-20.0) 04/26/18 15:50 Plt Count 171 Th/cmm (150-400) 04/26/18 15:50 MPV 7.6 fl 04/26/18 15:50 Neutrophils % 73.8 % (40.0-80.0) 04/26/18 15:50 Lymphocytes % 17.1 % (20.0-50.0) L 04/26/18 15:50 Monocytes % 5.2 % (2.0-10.0) 04/26/18 15:50 Eosinophils % 3.7 % (0.0-5.0) 04/26/18 15:50 Basophils % 0.2 % (0.0-2.0) 04/26/18 15:50 Sodium 135 mEq/L (136-145) L 04/26/18 15:50 Potassium 3.8 mEq/L (3.5-5.1) 04/26/18 15:50 Chloride 101 mEq/L (98-107) 04/26/18 15:50 Carbon Dioxide 29.9 mEq/L (21.0-31.0) 04/26/18 15:50 Anion Gap 7.9 (7.0-16.0) 04/26/18 15:50 BUN 15 mg/dL (7-25) 04/26/18 15:50 Creatinine 0.8 mg/dL (0.7-1.3) 04/26/18 15:50 Est GFR ( Amer) > 60.0 ml/min (>90) 04/26/18 15:50 Est GFR (Non-Af Amer) > 60.0 ml/min 04/26/18 15:50 BUN/Creatinine Ratio 18.8 04/26/18 15:50 Glucose 98 mg/dL (70-105) 04/26/18 15:50 Calcium 9.3 mg/dL (8.6-10.3) 04/26/18 15:50 Total Bilirubin 0.5 mg/dL (0.3-1.0) 04/26/18 15:50 AST 18 U/L (13-39) 04/26/18 15:50 ALT 11 U/L (7-52) 04/26/18 15:50 Alkaline Phosphatase 49 U/L (34-104) 04/26/18 15:50 Total Protein 6.4 gm/dL (6.0-8.3) 04/26/18 15:50 Albumin 3.9 gm/dL (4.2-5.5) L 04/26/18 15:50 Globulin 2.5 gm/dL 04/26/18 15:50 Albumin/Globulin Ratio 1.6 (1.0-1.8) 04/26/18 15:50 Urine Source CLEAN C 04/26/18 16:30 Urine Color YELLOW 04/26/18 16:30 Urine Clarity SLIGHTLY HAZY (CLEAR) 04/26/18 16:30 Urine pH 7.0 (4.6 - 8.0) 04/26/18 16:30 Ur Specific [place] 1.010 (1.005-1.030) 04/26/18 16:30 Urine Protein NEGATIVE mg/dL (NEGATIVE) 04/26/18 16:30 Urine Glucose (UA) NEGATIVE mg/dL (NEGATIVE) 04/26/18 16:30 Urine Ketones NEGATIVE mg/dL (NEGATIVE) 04/26/18 16:30 Urine Blood NEGATIVE (NEGATIVE) 04/26/18 16:30 Urine Nitrate NEGATIVE (NEGATIVE) 04/26/18 16:30 Urine Bilirubin NEGATIVE (NEGATIVE) 04/26/18 16:30 Urine Urobilinogen 2.0 E.U./dL (0.2 - 1.0) 04/26/18 16:30 Ur Leukocyte Esterase TRACE (NEGATIVE) H 04/26/18 16:30 Urine RBC 5-10 /hpf (0-5) H 04/26/18 16:30 Urine WBC 0-2 /hpf (0-5) 04/26/18 16:30 Ur Epithelial Cells OCCASIONAL /lpf (FEW) 04/26/18 16:30 Urine Bacteria NONE SEEN /hpf (NONE SEEN) 04/26/18 16:30 - Physical Exam Vitals and I&O: Vital Signs Temp 99.1 F 05/03/18 06:31 Pulse 66 05/03/18 10:34 Resp 18 05/03/18 10:34 BP 112/63 05/03/18 06:31 Pulse Ox 100 05/03/18 10:34 Intake & Output 05/02/18 05/03/18 05/03/18 18:59 06:59 18:59 Intake Total 480 Balance 480 Intake: Oral 480 Other: # Voids 2 Active Medications: Current Medications Acetaminophen (Tylenol) 650 mg PO Q4HR PRN PRN Reason: Mild Pain / Temp above 100 Stop: 06/25/18 17:53 Acetaminophen (Tylenol) 650 mg PO Q4H PRN PRN Reason: Pain Or Fever above 101 Stop: 06/25/18 18:16 Al Hydrox/Mg Hydrox/Simethicone (Maalox) 30 ml PO Q4HR PRN PRN Reason: GI DISTRESS Stop: 06/25/18 17:53 Al Hydrox/Mg Hydrox/Simethicone (Maalox) 30 ml PO Q4HR PRN PRN Reason: GI DISTRESS Stop: 06/25/18 18:16 Albuterol Sulfate (Albuterol 2.5mg/3ml Neb Ud) 2.5 mg HHN QIDRT [facility] Stop: 06/25/18 18:59 Last Admin: 05/03/18 10:34 Dose: 2.5 mg Albuterol/Ipratropium (Duoneb Neb) 3 ml HHN TIDRT [facility] Stop: 06/25/18 22:59 Last Admin: 05/01/18 15:43 Dose: Not Given Benztropine Mesylate (Cogentin) 0.5 mg PO BID [facility] Stop: 06/26/18 08:59 Last Admin: 05/03/18 09:37 Dose: 0.5 mg Guaifenesin (Robitussin) 200 mg PO Q4HR PRN PRN Reason: Cough or Congestion Stop: 06/25/18 18:16 Haloperidol (Haldol) 5 mg PO BID [facility]; Protocol Stop: 06/27/18 16:59 Last Admin: 05/03/18 09:37 Dose: 5 mg Haloperidol Decanoate (Haldol Dec) 75 mg IM QMONTH [facility]; Protocol Stop: 07/05/18 08:59 Insulin Aspart (Novolog Insulin Sliding Scale) 2 - 12 units SUBQ ACHS [facility]; Protocol Stop: 06/25/18 20:59 Last Admin: 05/03/18 11:56 Dose: Not Given Ipratropium [place] (Atrovent Neb 0.5mg/2.5ml) 0.5 mg HHN QIDRT [facility] Stop: 06/25/18 18:59 Last Admin: 05/03/18 10:34 Dose: 0.5 mg Lorazepam (Ativan) 0.5 mg PO Q4H PRN; Protocol PRN Reason: Anxiety Stop: 06/25/18 11:59 Last Admin: 05/02/18 09:37 Dose: 0.5 mg Magnesium Hydroxide (Milk Of Magnesia) 30 ml PO HS PRN PRN Reason: Constipation Magnesium Hydroxide (Milk Of Magnesia) 30 ml PO HS PRN PRN Reason: Constipation Stop: 06/25/18 18:16 Multivitamins/Vitamin C (Theragran) 1 tab PO DAILY [facility] Stop: 06/26/18 08:59 Last Admin: 05/03/18 09:37 Dose: 1 tab Zolpidem Tartrate (Ambien) 5 mg PO HS PRN PRN Reason: Insomnia Stop: 06/25/18 17:53 Last Admin: 04/28/18 21:47 Dose: 5 mg Zolpidem Tartrate (Ambien) 5 mg PO HS PRN PRN Reason: Insomnia Stop: 06/25/18 18:16 Last Admin: 04/29/18 20:56 Dose: 5 mg HEENT: NC/AT, PERRLA Neck: Supple Lungs: CTAB Cardiovascular: RRR, Normal S1, Normal S2 Abdomen: soft, non-tender, non-distended, positive bowel sound Neurological: alert Internal Medicine Assmt/Plan - Assessment Assessment: dyslipidemia agitation schiophrenia anxiety dm - Plan Plan: monitor glucose fall precautions cpm Nutritional Asmnt/Malnutr-PDOC - Dietary Evaluation Malnutrition Findings (Please click <Entered> for more info): Nutritional Asmnt/Malnutrition Start: 04/29/18 14: 40 Text: Status: Complete Freq: Protocol: Document 04/29/18 14:40 JOSTIN (Rec: 04/29/18 14:45 JOSTIN [email or web address]) Nutritional Asmnt/Malnutrition Patient General Information Nutritional Screening Moderate Risk Diagnosis psychosis Pertinent Medical Hx/Surgical Hx dysilipiemia, anxiety, agitation, schizophrenia, DM Subjective Information Pt seen went for smoking after lunch. Per EMR, PO intake 100 %. Current Diet Order/ Nutrition Support [facility] soft chopped CCHO 60gm Pertinent Medications novolog, theragran Pertinent Labs 04/26 Na 135, Alb 3.9 Nutritional Hx/Data Height 5 ft 6 in Height (Calculated Centimeters) 167.6 Current Weight (lbs) 127 lb Weight (Calculated Kilograms) 57.6 Weight (Calculated Grams) 77156.2 [place] Body Weight 142 Body Mass Index (BMI) 20.5 Weight Status Approriate GI Symptoms GI Symptoms None Last BM 04/26 Difficult in: None Skin Integrity/Comment: intact Current %PO Good (75-100%) Estimated Nutritional Goals BEE in Kcals: Using Current wt Calories/Kcals/Kg 25-30 Kcals Calculated 6359-3496 Protein: Using Current wt Protein g/k Protein Calculated 58 Fluid: ml 1450-1740ml (1ml/kcal) Nutritional Problem No current Nutrition Prob Problem N/A Malnutrition Alert Is there a minimum of two criteria No selected? Query Text:Check all the applicable criteria. A minimum of two criteria are recommended for diagnosis of either severe or non-severe malnutrition. Malnutrition Related to Morbid Obesity Malnutrition related to morbid obesity No Intervention/Recommendation Comments 1. Consider removing CCHO 60gm diet restriction if glucose continue WNL 2. Monitor PO intake, wt, labs and skin integrity 3. F/U as low risk in 7 days, 05/08 Expected Outcomes/Goals Expected Outcomes/Goals 1. PO intake to meet at least 75% of nutritional needs. 2. Wt stability, skin to remain intact, labs to approach WNL.
[2018-05-03] MEDS ORDERED: Albuterol Nebulizer 2.5mg/3mL HHN SCH ×2 (14:45→19:00)
[2018-05-03] MEDS: Albuterol/Ipratropium Neb 3 ML AERS HHN SCH (19:47)
--- NOTE | 2018-05-04 03:48 | Progress Notes ---
DATE: 05/03/2018 SUBJECTIVE: Staff was spoken to. The patient is interviewed. Mood is noted to be anxious. Affect is appropriate. Insight and judgment at this time are noted to be improving. Impulse control seems to be fair. No side effects to the medications are noted. The patient is scheduled to have a Haldol Decanoate and patient is thinking that he is willing to get it tomorrow. relief manager and staff have been requested to request the pharmacy to get the Haldol Decanoate and give the medication. The patient is being discharged back to the [facility]. ASSESSMENT: The patient's psychosis is resolving. PLAN: To continue the patient with the supportive therapy, encouraged the patient to verbalize the concerns rather than to act out. JOB# [id number]
[2018-05-04] MEDS: INSULIN ASPART SLIDING SCALE 100 UNITS/ML UNIT SUBQ SCH ×4 (06:35→20:23)
[2018-05-04] MEDS: Albuterol/Ipratropium Neb 3 ML AERS HHN SCH ×3 (07:26→18:45)
[2018-05-04] MEDS: Multivitamin Tab PO SCH (09:31)
--- NOTE | 2018-05-04 23:58 | Progress Notes ---
DATE: 05/04/2018 PSYCHIATRIC PROGRESS NOTE SUBJECTIVE: Staff was spoken to. The patient is interviewed. Mood is noted to be anxious. The patient's coping skills are noted to be still poor. The patient has paranoia, but denies any command hallucinations. No side effects to medications are noted. Sleep and appetite are noted to be improving at this time. ASSESSMENT: The patient is still psychotic. PLAN: To continue the patient with the supportive therapy and proceed with 50 mg of Haldol Decanoate tomorrow and if the patient is able to tolerate, possibly the patient is going to be discharged. JOB# [id number]
[2018-05-05] MEDS: INSULIN ASPART SLIDING SCALE 100 UNITS/ML UNIT SUBQ SCH ×4 (06:33→21:19)
[2018-05-05] MEDS: Albuterol/Ipratropium Neb 3 ML AERS HHN SCH ×3 (07:04→19:46)
[2018-05-05] MEDS: Multivitamin Tab PO SCH (09:50)
--- NOTE | 2018-05-05 12:16 | Internal Medicine Prog Note ---
Internal Medicine Subjective - Subjective Service Date: 05/05/18 Patient is:: awake, verbal, agitated Per staff patient has:: tolerating meds Internal Medicine Objective - Results Result Diagrams: 04/26/18 15:50 04/26/18 15:50 Recent Labs: Laboratory Last Values WBC 5.2 Th/cmm (4.8-10.8) 04/26/18 15:50 RBC 3.98 Mil/cmm (4.30-5.70) L 04/26/18 15:50 Hgb 11.6 gm/dL (12-16) L 04/26/18 15:50 Hct 34.8 % (41.0-60) L 04/26/18 15:50 MCV 87.5 fl (80-99) 04/26/18 15:50 MCH 29.0 pg (26.0-30.0) 04/26/18 15:50 MCHC Differential 33.2 pg (28.0-36.0) 04/26/18 15:50 RDW 12.2 % (11.5-20.0) 04/26/18 15:50 Plt Count 171 Th/cmm (150-400) 04/26/18 15:50 MPV 7.6 fl 04/26/18 15:50 Neutrophils % 73.8 % (40.0-80.0) 04/26/18 15:50 Lymphocytes % 17.1 % (20.0-50.0) L 04/26/18 15:50 Monocytes % 5.2 % (2.0-10.0) 04/26/18 15:50 Eosinophils % 3.7 % (0.0-5.0) 04/26/18 15:50 Basophils % 0.2 % (0.0-2.0) 04/26/18 15:50 Sodium 135 mEq/L (136-145) L 04/26/18 15:50 Potassium 3.8 mEq/L (3.5-5.1) 04/26/18 15:50 Chloride 101 mEq/L (98-107) 04/26/18 15:50 Carbon Dioxide 29.9 mEq/L (21.0-31.0) 04/26/18 15:50 Anion Gap 7.9 (7.0-16.0) 04/26/18 15:50 BUN 15 mg/dL (7-25) 04/26/18 15:50 Creatinine 0.8 mg/dL (0.7-1.3) 04/26/18 15:50 Est GFR ( Amer) > 60.0 ml/min (>90) 04/26/18 15:50 Est GFR (Non-Af Amer) > 60.0 ml/min 04/26/18 15:50 BUN/Creatinine Ratio 18.8 04/26/18 15:50 Glucose 98 mg/dL (70-105) 04/26/18 15:50 Calcium 9.3 mg/dL (8.6-10.3) 04/26/18 15:50 Total Bilirubin 0.5 mg/dL (0.3-1.0) 04/26/18 15:50 AST 18 U/L (13-39) 04/26/18 15:50 ALT 11 U/L (7-52) 04/26/18 15:50 Alkaline Phosphatase 49 U/L (34-104) 04/26/18 15:50 Total Protein 6.4 gm/dL (6.0-8.3) 04/26/18 15:50 Albumin 3.9 gm/dL (4.2-5.5) L 04/26/18 15:50 Globulin 2.5 gm/dL 04/26/18 15:50 Albumin/Globulin Ratio 1.6 (1.0-1.8) 04/26/18 15:50 Urine Source CLEAN C 04/26/18 16:30 Urine Color YELLOW 04/26/18 16:30 Urine Clarity SLIGHTLY HAZY (CLEAR) 04/26/18 16:30 Urine pH 7.0 (4.6 - 8.0) 04/26/18 16:30 Ur Specific [place] 1.010 (1.005-1.030) 04/26/18 16:30 Urine Protein NEGATIVE mg/dL (NEGATIVE) 04/26/18 16:30 Urine Glucose (UA) NEGATIVE mg/dL (NEGATIVE) 04/26/18 16:30 Urine Ketones NEGATIVE mg/dL (NEGATIVE) 04/26/18 16:30 Urine Blood NEGATIVE (NEGATIVE) 04/26/18 16:30 Urine Nitrate NEGATIVE (NEGATIVE) 04/26/18 16:30 Urine Bilirubin NEGATIVE (NEGATIVE) 04/26/18 16:30 Urine Urobilinogen 2.0 E.U./dL (0.2 - 1.0) 04/26/18 16:30 Ur Leukocyte Esterase TRACE (NEGATIVE) H 04/26/18 16:30 Urine RBC 5-10 /hpf (0-5) H 04/26/18 16:30 Urine WBC 0-2 /hpf (0-5) 04/26/18 16:30 Ur Epithelial Cells OCCASIONAL /lpf (FEW) 04/26/18 16:30 Urine Bacteria NONE SEEN /hpf (NONE SEEN) 04/26/18 16:30 - Physical Exam Vitals and I&O: Vital Signs Temp 98.1 F 05/05/18 06:05 Pulse 77 05/05/18 07:05 Resp 18 05/05/18 07:05 BP 126/74 05/05/18 06:05 Pulse Ox 98 05/05/18 07:05 Active Medications: Current Medications Acetaminophen (Tylenol) 650 mg PO Q4H PRN PRN Reason: Pain Or Fever above 101 Stop: 06/25/18 18:16 Al Hydrox/Mg Hydrox/Simethicone (Maalox) 30 ml PO Q4HR PRN PRN Reason: GI DISTRESS Stop: 06/25/18 18:16 Albuterol/Ipratropium (Duoneb Neb) 3 ml HHN [id number] [facility] Stop: 07/02/18 18:59 Last Admin: 05/05/18 07:04 Dose: 3 ml Benztropine Mesylate (Cogentin) 0.5 mg PO BID [facility] Stop: 06/26/18 08:59 Last Admin: 05/05/18 09:50 Dose: 0.5 mg Guaifenesin (Robitussin) 200 mg PO Q4HR PRN PRN Reason: Cough or Congestion Stop: 06/25/18 18:16 Haloperidol (Haldol) 5 mg PO BID [facility]; Protocol Stop: 06/27/18 16:59 Last Admin: 05/05/18 09:50 Dose: 5 mg Haloperidol Decanoate (Haldol Dec) 50 mg IM QMONTH [facility]; Protocol Stop: 07/04/18 08:59 Last Admin: 05/05/18 10:00 Dose: 50 mg Insulin Aspart (Novolog Insulin Sliding Scale) 2 - 12 units SUBQ ACHS [facility]; Protocol Stop: 06/25/18 20:59 Last Admin: 05/05/18 06:33 Dose: Not Given Lorazepam (Ativan) 0.5 mg PO Q4H PRN; Protocol PRN Reason: Anxiety Stop: 06/25/18 11:59 Last Admin: 05/02/18 09:37 Dose: 0.5 mg Magnesium Hydroxide (Milk Of Magnesia) 30 ml PO HS PRN PRN Reason: Constipation Stop: 06/25/18 18:16 Multivitamins/Vitamin C (Theragran) 1 tab PO DAILY [facility] Stop: 06/26/18 08:59 Last Admin: 05/05/18 09:50 Dose: 1 tab Zolpidem Tartrate (Ambien) 5 mg PO HS PRN PRN Reason: Insomnia Stop: 06/25/18 17:53 Last Admin: 04/28/18 21:47 Dose: 5 mg HEENT: NC/AT, PERRLA Neck: Supple Lungs: CTAB Cardiovascular: RRR, Normal S1, Normal S2 Abdomen: soft, non-tender, non-distended, positive bowel sound Neurological: alert Internal Medicine Assmt/Plan - Assessment Assessment: dyslipidemia agitation schiophrenia anxiety dm - Plan Plan: monitor glucose fall precautions cpm Nutritional Asmnt/Malnutr-PDOC - Dietary Evaluation Malnutrition Findings (Please click <Entered> for more info): Nutritional Asmnt/Malnutrition Start: 04/29/18 14: 40 Text: Status: Complete Freq: Protocol: Document 04/29/18 14:40 LCHENG (Rec: 04/29/18 14:45 [email or web address] [email or web address]) Nutritional Asmnt/Malnutrition Patient General Information Nutritional Screening Moderate Risk Diagnosis psychosis Pertinent Medical Hx/Surgical Hx dysilipiemia, anxiety, agitation, schizophrenia, DM Subjective Information Pt seen went for smoking after lunch. Per EMR, PO intake 100 %. Current Diet Order/ Nutrition Support [facility] soft chopped CCHO 60gm Pertinent Medications novolog, theragran Pertinent Labs 04/26 Na 135, Alb 3.9 Nutritional Hx/Data Height 5 ft 6 in Height (Calculated Centimeters) 167.6 Current Weight (lbs) 127 lb Weight (Calculated Kilograms) 57.6 Weight (Calculated Grams) 03796.2 [place] Body Weight 142 Body Mass Index (BMI) 20.5 Weight Status Approriate GI Symptoms GI Symptoms None Last BM 04/26 Difficult in: None Skin Integrity/Comment: intact Current %PO Good (75-100%) Estimated Nutritional Goals BEE in Kcals: Using Current wt Calories/Kcals/Kg 25-30 Kcals Calculated 9892-9345 Protein: Using Current wt Protein g/k Protein Calculated 58 Fluid: ml 1450-1740ml (1ml/kcal) Nutritional Problem No current Nutrition Prob Problem N/A Malnutrition Alert Is there a minimum of two criteria No selected? Query Text:Check all the applicable criteria. A minimum of two criteria are recommended for diagnosis of either severe or non-severe malnutrition. Malnutrition Related to Morbid Obesity Malnutrition related to morbid obesity No Intervention/Recommendation Comments 1. Consider removing CCHO 60gm diet restriction if glucose continue WNL 2. Monitor PO intake, wt, labs and skin integrity 3. F/U as low risk in 7 days, 05/08 Expected Outcomes/Goals Expected Outcomes/Goals 1. PO intake to meet at least 75% of nutritional needs. 2. Wt stability, skin to remain intact, labs to approach WNL.
[2018-05-06] MEDS: INSULIN ASPART SLIDING SCALE 100 UNITS/ML UNIT SUBQ SCH ×3 (06:37→16:23)
--- NOTE | 2018-05-06 07:05 | Progress Notes ---
DATE: 05/05/2018 SUBJECTIVE: Staff was spoken to. The patient is interviewed. Mood is noted to be irritable. Affect is constricted. The patient's insight and judgment are noted to be poor. The patient is having paranoid delusions, but denies any command hallucinations. The patient has been given the Haldol Decanoate 50 mg IM and the patient has been able to tolerate. ASSESSMENT: The patient is psychotic and the patient is being closely monitored at this time. PLAN: To continue the patient with the supportive therapy and followup. JOB# [id number]
[2018-05-06] MEDS: Albuterol/Ipratropium Neb 3 ML AERS HHN SCH ×2 (07:15→14:18)
[2018-05-06] MEDS: Multivitamin Tab PO SCH (08:42)
--- NOTE | 2018-05-06 10:59 | Internal Medicine Prog Note ---
Internal Medicine Subjective - Subjective Service Date: 05/06/18 Patient is:: awake, verbal, agitated Per staff patient has:: tolerating meds Internal Medicine Objective - Results Result Diagrams: 04/26/18 15:50 04/26/18 15:50 Recent Labs: Laboratory Last Values WBC 5.2 Th/cmm (4.8-10.8) 04/26/18 15:50 RBC 3.98 Mil/cmm (4.30-5.70) L 04/26/18 15:50 Hgb 11.6 gm/dL (12-16) L 04/26/18 15:50 Hct 34.8 % (41.0-60) L 04/26/18 15:50 MCV 87.5 fl (80-99) 04/26/18 15:50 MCH 29.0 pg (26.0-30.0) 04/26/18 15:50 MCHC Differential 33.2 pg (28.0-36.0) 04/26/18 15:50 RDW 12.2 % (11.5-20.0) 04/26/18 15:50 Plt Count 171 Th/cmm (150-400) 04/26/18 15:50 MPV 7.6 fl 04/26/18 15:50 Neutrophils % 73.8 % (40.0-80.0) 04/26/18 15:50 Lymphocytes % 17.1 % (20.0-50.0) L 04/26/18 15:50 Monocytes % 5.2 % (2.0-10.0) 04/26/18 15:50 Eosinophils % 3.7 % (0.0-5.0) 04/26/18 15:50 Basophils % 0.2 % (0.0-2.0) 04/26/18 15:50 Sodium 135 mEq/L (136-145) L 04/26/18 15:50 Potassium 3.8 mEq/L (3.5-5.1) 04/26/18 15:50 Chloride 101 mEq/L (98-107) 04/26/18 15:50 Carbon Dioxide 29.9 mEq/L (21.0-31.0) 04/26/18 15:50 Anion Gap 7.9 (7.0-16.0) 04/26/18 15:50 BUN 15 mg/dL (7-25) 04/26/18 15:50 Creatinine 0.8 mg/dL (0.7-1.3) 04/26/18 15:50 Est GFR ( Amer) > 60.0 ml/min (>90) 04/26/18 15:50 Est GFR (Non-Af Amer) > 60.0 ml/min 04/26/18 15:50 BUN/Creatinine Ratio 18.8 04/26/18 15:50 Glucose 98 mg/dL (70-105) 04/26/18 15:50 Calcium 9.3 mg/dL (8.6-10.3) 04/26/18 15:50 Total Bilirubin 0.5 mg/dL (0.3-1.0) 04/26/18 15:50 AST 18 U/L (13-39) 04/26/18 15:50 ALT 11 U/L (7-52) 04/26/18 15:50 Alkaline Phosphatase 49 U/L (34-104) 04/26/18 15:50 Total Protein 6.4 gm/dL (6.0-8.3) 04/26/18 15:50 Albumin 3.9 gm/dL (4.2-5.5) L 04/26/18 15:50 Globulin 2.5 gm/dL 04/26/18 15:50 Albumin/Globulin Ratio 1.6 (1.0-1.8) 04/26/18 15:50 Urine Source CLEAN C 04/26/18 16:30 Urine Color YELLOW 04/26/18 16:30 Urine Clarity SLIGHTLY HAZY (CLEAR) 04/26/18 16:30 Urine pH 7.0 (4.6 - 8.0) 04/26/18 16:30 Ur Specific [place] 1.010 (1.005-1.030) 04/26/18 16:30 Urine Protein NEGATIVE mg/dL (NEGATIVE) 04/26/18 16:30 Urine Glucose (UA) NEGATIVE mg/dL (NEGATIVE) 04/26/18 16:30 Urine Ketones NEGATIVE mg/dL (NEGATIVE) 04/26/18 16:30 Urine Blood NEGATIVE (NEGATIVE) 04/26/18 16:30 Urine Nitrate NEGATIVE (NEGATIVE) 04/26/18 16:30 Urine Bilirubin NEGATIVE (NEGATIVE) 04/26/18 16:30 Urine Urobilinogen 2.0 E.U./dL (0.2 - 1.0) 04/26/18 16:30 Ur Leukocyte Esterase TRACE (NEGATIVE) H 04/26/18 16:30 Urine RBC 5-10 /hpf (0-5) H 04/26/18 16:30 Urine WBC 0-2 /hpf (0-5) 04/26/18 16:30 Ur Epithelial Cells OCCASIONAL /lpf (FEW) 04/26/18 16:30 Urine Bacteria NONE SEEN /hpf (NONE SEEN) 04/26/18 16:30 - Physical Exam Vitals and I&O: Vital Signs Temp 98.2 F 05/06/18 06:36 Pulse 66 05/06/18 07:15 Resp 20 05/06/18 08:00 BP 97/58 05/06/18 06:36 Pulse Ox 98 05/06/18 07:15 Intake & Output 05/05/18 05/06/18 05/06/18 18:59 06:59 18:59 Intake Total 1300 500 Balance 1300 500 Intake: Oral 1300 500 Other: # Voids 3 4 # Bowel Movements 0 1 Active Medications: Current Medications Acetaminophen (Tylenol) 650 mg PO Q4H PRN PRN Reason: Pain Or Fever above 101 Stop: 06/25/18 18:16 Al Hydrox/Mg Hydrox/Simethicone (Maalox) 30 ml PO Q4HR PRN PRN Reason: GI DISTRESS Stop: 06/25/18 18:16 Albuterol/Ipratropium (Duoneb Neb) 3 ml HHN [id number] [facility] Stop: 07/02/18 18:59 Last Admin: 05/06/18 07:15 Dose: 3 ml Benztropine Mesylate (Cogentin) 0.5 mg PO BID [facility] Stop: 06/26/18 08:59 Last Admin: 05/06/18 08:42 Dose: 0.5 mg Guaifenesin (Robitussin) 200 mg PO Q4HR PRN PRN Reason: Cough or Congestion Stop: 06/25/18 18:16 Haloperidol (Haldol) 5 mg PO BID [facility]; Protocol Stop: 06/27/18 16:59 Last Admin: 05/06/18 08:42 Dose: 5 mg Haloperidol Decanoate (Haldol Dec) 50 mg IM QMONTH [facility]; Protocol Stop: 07/04/18 08:59 Last Admin: 05/05/18 10:00 Dose: 50 mg Insulin Aspart (Novolog Insulin Sliding Scale) 2 - 12 units SUBQ ACHS [facility]; Protocol Stop: 06/25/18 20:59 Last Admin: 05/06/18 06:37 Dose: Not Given Lorazepam (Ativan) 0.5 mg PO Q4H PRN; Protocol PRN Reason: Anxiety Stop: 06/25/18 11:59 Last Admin: 05/02/18 09:37 Dose: 0.5 mg Magnesium Hydroxide (Milk Of Magnesia) 30 ml PO HS PRN PRN Reason: Constipation Stop: 06/25/18 18:16 Multivitamins/Vitamin C (Theragran) 1 tab PO DAILY [facility] Stop: 06/26/18 08:59 Last Admin: 05/06/18 08:42 Dose: 1 tab Zolpidem Tartrate (Ambien) 5 mg PO HS PRN PRN Reason: Insomnia Stop: 06/25/18 17:53 Last Admin: 04/28/18 21:47 Dose: 5 mg HEENT: NC/AT, PERRLA Neck: Supple Lungs: CTAB Cardiovascular: RRR, Normal S1, Normal S2 Abdomen: soft, non-tender, non-distended, positive bowel sound Neurological: alert Internal Medicine Assmt/Plan - Assessment Assessment: dyslipidemia agitation schiophrenia anxiety dm - Plan Plan: monitor glucose fall precautions cpm Nutritional Asmnt/Malnutr-PDOC - Dietary Evaluation Malnutrition Findings (Please click <Entered> for more info): Nutritional Asmnt/Malnutrition Start: 04/29/18 14: 40 Text: Status: Complete Freq: Protocol: Document 04/29/18 14:40 LCHENG (Rec: 04/29/18 14:45 [email or web address] [id number]) Nutritional Asmnt/Malnutrition Patient General Information Nutritional Screening Moderate Risk Diagnosis psychosis Pertinent Medical Hx/Surgical Hx dysilipiemia, anxiety, agitation, schizophrenia, DM Subjective Information Pt seen went for smoking after lunch. Per EMR, PO intake 100 %. Current Diet Order/ Nutrition Support [facility] soft chopped CCHO 60gm Pertinent Medications novolog, theragran Pertinent Labs 04/26 Na 135, Alb 3.9 Nutritional Hx/Data Height 5 ft 6 in Height (Calculated Centimeters) 167.6 Current Weight (lbs) 127 lb Weight (Calculated Kilograms) 57.6 Weight (Calculated Grams) 50235.2 [place] Body Weight 142 Body Mass Index (BMI) 20.5 Weight Status Approriate GI Symptoms GI Symptoms None Last BM 04/26 Difficult in: None Skin Integrity/Comment: intact Current %PO Good (75-100%) Estimated Nutritional Goals BEE in Kcals: Using Current wt Calories/Kcals/Kg 25-30 Kcals Calculated 0499-9407 Protein: Using Current wt Protein g/k Protein Calculated 58 Fluid: ml 1450-1740ml (1ml/kcal) Nutritional Problem No current Nutrition Prob Problem N/A Malnutrition Alert Is there a minimum of two criteria No selected? Query Text:Check all the applicable criteria. A minimum of two criteria are recommended for diagnosis of either severe or non-severe malnutrition. Malnutrition Related to Morbid Obesity Malnutrition related to morbid obesity No Intervention/Recommendation Comments 1. Consider removing CCHO 60gm diet restriction if glucose continue WNL 2. Monitor PO intake, wt, labs and skin integrity 3. F/U as low risk in 7 days, 05/08 Expected Outcomes/Goals Expected Outcomes/Goals 1. PO intake to meet at least 75% of nutritional needs. 2. Wt stability, skin to remain intact, labs to approach WNL.
--- NOTE | 2018-05-06 15:09 | Progress Notes ---
DATE: 05/06/2018 SUBJECTIVE: Staff was spoken to. The patient is interviewed. Mood is noted to be anxious. Coping skills are noted to be still poor. Sleep and appetite also noted to be improving. The patient has paranoia, but denies any command hallucinations. No side effects to the medications are noted. The patient is not presenting with any threats to harm self and others. ASSESSMENT: The patient is stabilizing. PLAN: To discharge the patient to [facility]. [facility]# [id number]
--- NOTE | 2018-05-10 01:03 | Discharge Summary ---
DATE OF DISCHARGE: 05/06/2018 IDENTIFYING DATA: The patient is a 57-year-old -[place] male, resident of [facility]. JUSTIFICATION OF HOSPITALIZATION: The patient is admitted because of his acute agitation and aggressive behavior towards the staff. CHIEF COMPLAINT: "I should not be here, I want to go home, get me out of here." DIAGNOSES AT THE TIME OF ADMISSION: AXIS I: Schizophrenia, chronic paranoid type. AXIS II: None. AXIS III: As per Dr. Partida. HISTORY OF PRESENT ILLNESS: Please review the 04/26/2018 dictation done by me. Physical examination at the time of admission was done by Dr. Herman Calderon and is noted to be significant for dyslipidemia and diabetes. HOSPITAL COURSE AND RESPONSE TO TREATMENT: The patient has been observed on the inpatient unit, provided with supportive psychotherapy. The patient has been encouraged to participate in the groups and verbalize the concerns and the patient has been very, very insisting that he should not be in here, he should be there at [facility]. The patient has been placed on the Haldol, and finally the patient has been given the Haldol Decanoate 50 mg prior to him being discharged so that he is going to be compliant with the medication. He was discharged on 05/06/2018 with recommendation that he is going to be followed up by Dr. Boss on an outpatient basis. MENTAL STATUS EXAMINATION: At the time of discharge, the patient's mood is noted to be less irritable. Affect is appropriate. Not suicidal or homicidal. Insight and judgment are noted to be improving. Impulse control seems to be fair. No side effects to the medications are noted. The patient has been able to tolerate the Haldol. At the time of the discharge, the patient has been given the Haldol Decanoate 50 mg IM. DIAGNOSES AT THE TIME OF DISCHARGE: AXIS I: Schizophrenia, chronic paranoid type. AXIS II: None. AXIS III: As per Dr. Partida. AFTERCARE PLAN: The patient is discharged to [facility] for further followup. JOB# [id number]
== END 2018-05-06 18:20 | DRG 885 ==
LOC: ER 15:16 → GERO2 17:10
DX: F20.0 Paranoid schizophrenia (principal); F29 Unspecified psychosis not due to a substance or known physiological condition; E78.5 Hyperlipidemia, unspecified; E11.9 Type 2 diabetes mellitus without complications; F41.9 Anxiety disorder, unspecified; Z79.4 Long term (current) use of insulin
CPT/HCPCS: 36415-UA; 71045-TC; 80053-TC; 81001-TC; 83036-90; 85025-TC; 90779; 90899; 93005; 94640; 94760; G0410; J1631; J1815; J7613; Z7610